=== PATIENT | male | born 1940 | race Caucasian/White ===

== ENCOUNTER 2016-11-24 02:58 | Inpatient (IN) ==
[2016-11-17 11:37] LABS: MANUAL DIFF NEEDED? NO
[2016-11-17 11:39] LABS: BASO% 0.2 % (0.0-0.8); EOS% 1.1 % (0.0-10.0); HEMATOCRIT 32.6 % (42.0-52.0); HEMOGLOBIN 10.3 g/dL (14.0-18.0); IMM GRAN# 0.02 X1000 (0.0-0.04); IMM GRAN% 0.2 % (0.0-0.5); LYMPH# 0.99 X1000 (1.2-3.4); MCH 28.4 PG (27-31); MCHC 31.6 g/dL (33-37); MCV 89.8 FL (81-99); MONO# 0.67 X1000 (0.11-0.59); MONO% 7.5 % (1.7-9.3); MPV 11.3 FL (7.4-10.4); PLT 129 X1000 (130-400); RBC 3.63 XMIL (4.7-6.1)
[2016-11-17 11:52] LABS: INR 1.05; PROTIME 11.1 Seconds (9.2-11.7); PTT 28.3 Seconds (22.0-36.0)
[2016-11-17 11:58] LABS: CALCIUM 9.3 mg/dL (8.8-10.2); POTASSIUM 4.8 mmol/L (3.5-5.1)
[2016-11-24] MEDS ORDERED: MORPHINE IV PRN (07:19)
[2016-11-24 08:55] LABS: URINE MICRO REVIEW NEEDED? NO; URINE SOURCE CLEAN CATCH
[2016-11-24 09:38] LABS: COLOR YELLOW; GLUCOSE URINE NEGATIVE (NEGATIVE); TURBIDITY URINE CLEAR (CLEAR)
[2016-11-24 09:39] LABS: BILIRUBIN URINE SMALL (NEGATIVE); BLOOD URINE NEGATIVE (NEGATIVE); LEUKOCYTES URINE NEGATIVE (NEGATIVE); NITRITE URINE NEGATIVE (NEGATIVE); PROTEIN URINE NEGATIVE (NEGATIVE); UR EPITHELIAL CELLS <10 /HPF (<10); URINE BACTERIA 4+ /HPF; URINE RBC <10 /HPF (<10); URINE WBC <10 /HPF (<10); UROBILINOGEN URINE NORMAL (NORMAL)
[2016-11-24] MEDS ORDERED: REGLAN ONE (09:53)
[2016-11-24] MEDS ORDERED: PEPCID ONE (09:53)
[2016-11-24] MEDS ORDERED: KEFZOL 2 GM/D5W 2 GM/50 ML IVPB ONE (09:54)
[2016-11-24] MEDS ORDERED: LR 1,000 ML ONE ×2 (09:54→13:20)
[2016-11-24] MEDS ORDERED: LYRICA ONE (09:54)
[2016-11-24] MEDS ORDERED: CYKLOKAPRON 1,000 MG/NS 1,000 MG/100 ML IVPB ONE (10:28)
[2016-11-24] MEDS ORDERED: SODIUM CHLORIDE 0.9% ONE (10:28)
[2016-11-24] MEDS ORDERED: TORADOL ONE (10:28)
[2016-11-24] MEDS ORDERED: DURAMORPH ONE (10:28)
[2016-11-24] MEDS ORDERED: MARCAINE 0.25% PF/EPI 1:200,000 ONE (10:28)
[2016-11-24] MEDS ORDERED: EXPAREL 1.3% ONE (10:29)
[2016-11-24] MEDS ORDERED: NEOSPORIN G.U. IRRIGANT ONE (10:29)
[2016-11-24] MEDS ORDERED: CLAVE SECONDARY SET 11953 ONE (10:29)
[2016-11-24] MEDS: COLACE PO SCH ×2 (10:31→21:22)
[2016-11-24] MEDS: CELEBREX PO SCH (10:31)
[2016-11-24 11:45] LABS: URINE MICRO REVIEW NEEDED? NO; URINE SOURCE CATH
[2016-11-24 11:54] LABS: BILIRUBIN URINE NEGATIVE (NEGATIVE); BLOOD URINE NEGATIVE (NEGATIVE); COLOR STRAW; GLUCOSE URINE NEGATIVE (NEGATIVE); LEUKOCYTES URINE NEGATIVE (NEGATIVE); NITRITE URINE NEGATIVE (NEGATIVE); PH URINE 7.5; PROTEIN URINE NEGATIVE (NEGATIVE); SP GRAVITY URINE 1.005; TURBIDITY URINE CLEAR (CLEAR); UR EPITHELIAL CELLS <10 /HPF (<10); URINE BACTERIA NEGATIVE /HPF; URINE RBC <10 /HPF (<10); URINE WBC <10 /HPF (<10); UROBILINOGEN URINE NORMAL (NORMAL)
[2016-11-24] MEDS ORDERED: NS 1,000 ML ONE (13:01)
[2016-11-24] MEDS: MORPHINE ONE ×4 (13:02→13:30)
[2016-11-24] MEDS ORDERED: LR 500 ML ONE (13:11)
[2016-11-24] MEDS ORDERED: DIPRIVAN 1% ONE (13:12)
[2016-11-24] MEDS ORDERED: FENTANYL ONE (13:12)
[2016-11-24] MEDS ORDERED: NEOSTIGMINE ONE (13:19)
[2016-11-24] MEDS ORDERED: DECADRON ONE (13:20)
[2016-11-24] MEDS ORDERED: ZEMURON ONE (13:20)
[2016-11-24] MEDS ORDERED: OFIRMEV 1000 MG/ISOTONIC SOLN 1,000 MG/100 ML BOTTLE ONE (13:20)
[2016-11-24] MEDS ORDERED: XYLOCAINE-MPF 2% ONE (13:20)
[2016-11-24] MEDS ORDERED: QUELICIN (DOSE) ONE (13:20)
[2016-11-24] MEDS ORDERED: ROBINUL ONE (13:20)
[2016-11-24] MEDS ORDERED: ZOFRAN ONE (13:20)
[2016-11-24] MEDS ORDERED: EPHEDRINE ONE (13:20)
--- NOTE | 2016-11-24 14:40 | Diag Imaging Result Document ---
PROCEDURE NAME: XRAY HIP UNILATERAL LT - 11/24/2016 LEFT HIP 2 VIEWS: COMPARISON: 12/29/2015. FINDINGS: There is significant patient motion artifact, particularly on the frontal view. There is a new left total hip prosthesis. Alignment appears to be grossly anatomic. IMPRESSION: No obvious complication.
[2016-11-24] MEDS: ASPIRIN EC PO SCH (15:57)
--- NOTE | 2016-11-24 16:23 | OPERATIVE NOTE ---
PROCEDURE DATE: 11/24/2016 DATE OF SURGERY: 11/24/2016. PREOPERATIVE DIAGNOSIS: Degenerative joint disease, left hip. POSTOPERATIVE DIAGNOSIS: Degenerative joint disease, left hip. PROCEDURE: Left total hip replacement. SURGEON: Evelin Tong MD. COVER CREASER: Albert Tijerina. ANESTHESIA: General. COMPLICATIONS: None. PROCEDURE IN DETAIL: This 76-year-old male with DJD about the left hip presents for surgical hip replacement. Risks, benefits, and no guarantees were discussed, and the patient is willing to proceed. He was taken to the operating room and satisfactory anesthesia obtained. He was placed in lateral position with the left hip upward and all bony prominences padded. The left hip was prepped and draped in usual sterile fashion. A time-out was taken to confirm operative site, procedure, and patient. The posterior approach to the left hip was undertaken through a curved incision centered over the greater trochanter. Dissection was carried down to the deep fascia, which was split in line with the incision, and the Charnley retractor inserted. The piriformis tendon was reflected off the back of the hip capsule, and a capsulotomy incision made and reflected to protect the sciatic nerve. Hip was gently dislocated and femoral neck osteotomy made roughly 8 mm above the lesser trochanter. The Cobra retractors were placed over the anterior and posterior aspect of the acetabulum and sequential reaming of the acetabulum, undertaken up to a size 57 reamer. A DePuy [place] Duofix MANCERA coated cup size 58 outer diameter was impacted in the acetabulum in roughly 45 degrees of abduction and 20-25 degrees of anteversion. This was noted to have secure press-fit fixation. An additional 25 length screw was placed in the 12 o'clock position of the cup for additional security, followed by a polyethylene liner to accommodate a 40 mm head. This was then impacted and checked for security in both liner shell interface and shell and bone interface which were secure. The femur was elevated into the wound and sequential broaching with a [place] Corail broach undertaken up to a size 14 stem. This had good axial and rotational stability. Standard neck geometry was utilized with a 1.5 head/neck length with good range of motion and stability. The trial stem was removed and a Corail 14 standard neck stem was impacted in the proximal femur with secure fixation. A ceramic head was then attached to the ball measuring ceramic 40 mm with a 1.5 neck. Adapter was then impacted onto the proximal femoral implant and the hip reduced. Final range of motion was assessed with no anterior instability in extension. The hip was flexed to 90 degrees with neutral adduction and internal rotation to 80 degrees without any dislocation of the hip. The wound was then copiously irrigated with irrigant. The posterior capsule and piriformis were repaired with interrupted 0 Vicryl. The joint capsule was injected with Exparel for pain management and Hemovac drain placed. The deep fascia was closed with #1 Vicryl, the subcutaneous with 2-0 Vicryl, and the skin with skin jennifer. Sterile dressings completed the closure and the patient was recovered from anesthesia and transferred to the recovery room in stable condition. No intraoperative complications were noted. Instrument count and sponge count were correct at the time of closure. cc: Alberto Tong MD
[2016-11-24] MEDS: GLUCOPHAGE PO SCH ×2 (16:34→16:41)
[2016-11-24] MEDS: GRALISE PO SCH ×2 (16:34→16:42)
[2016-11-24] MEDS: NS 1,000 ML IV SCH (16:41)
[2016-11-24] MEDS: PROTONIX PO SCH (16:43)
[2016-11-24] MEDS: MAG-OX PO SCH (16:43)
[2016-11-24] MEDS: HYZAAR 100/12.5 MG TAB PO SCH (16:43)
[2016-11-24] MEDS ORDERED: CYKLOKAPRON 1,000 MG in NS 100 ML IV ONE (17:30)
[2016-11-24] MEDS: NORCO-10 PO PRN (17:32)
[2016-11-24] MEDS: KEFZOL 1 GM/D5W 1 GM/50 ML IVPB IV SCH (18:39)
[2016-11-24] MEDS: PERIDEX MT SCH (21:22)
[2016-11-24] MEDS: CRESTOR PO SCH (21:22)
[2016-11-24] MEDS: ELAVIL PO SCH (21:22)
[2016-11-25] MEDS: KEFZOL 1 GM/D5W 1 GM/50 ML IVPB IV SCH (02:17)
[2016-11-25] MEDS: NS 1,000 ML IV SCH (02:17)
[2016-11-25] MEDS: XARELTO PO SCH (05:09)
[2016-11-25 06:42] LABS: HEMATOCRIT 24.3 % (42.0-52.0); HEMOGLOBIN 7.5 g/dL (14.0-18.0)
[2016-11-25 06:53] LABS: CALCIUM 8.5 mg/dL (8.8-10.2); POTASSIUM 5.4 mmol/L (3.5-5.1)
--- NOTE | 2016-11-25 07:15 | HISTORY AND PHYSICAL ---
CHIEF COMPLAINT: Left hip pain. HISTORY OF PRESENT ILLNESS: This is a 76-year-old male, with a history of bilateral degenerative hips. He had a right hip done about 15 years ago and now he is here for the left. The surgical procedure, as well as risks and benefits were explained to patient at this time who agreed to proceed. PAST MEDICAL HISTORY: Serious illnesses: Diabetes, hypertension, heart disease. PAST SURGERIES: Right toe and a right total hip arthroplasty. MEDICATIONS: Regular medications: Elavil 25 mg 1 at night. Aspirin 325 mg 1 a day, Lodine 400 twice a day. Gabapentin 3 times a day, Imdur 60 mg 1 at night. Losartan 100/12.5 one a day, Mag oxide 400 once a day, metformin 850 mg 3 times a day. Pantoprazole 40 once a day, Crestor 20 once a day, tramadol p.r.n. pain. REVIEW OF SYSTEMS: HEENT: No history of migraines, dizziness, loss of conscious, CVA. Respiratory: He is a nonsmoker. No history of asthma, emphysema, shortness of breath. Heart: Patient is a poor historian and states he has had some type of heart problems in the past, but he is not exactly sure what. He states he has no recent history of chest pain or recent heart, chest pain. Abdomen: Has history of reflux, no history of bowel or bladder abnormalities. PHYSICAL EXAMINATION: GENERAL: This is a 76-year-old. Alert and oriented. Primary care physician is Dr. Lockhart. HEENT: Pupils equal, round, reactive. NECK: Good range of motion without adenopathy. RESPIRATORY: Respirations equal, unlabored, clear bilaterally. HEART: Regular rate and rhythm. ABDOMEN: Soft, nontender. Bowel sounds present. EXTREMITIES: Complains of pain in left hip. States has considerable difficulty walking. The pain sometimes radiates down the leg. IMPRESSIONS: Degenerative disease, left hip. PLAN: Admit at this time for left total hip arthroplasty. Dictated by Osmin Pascual RN for Alberto Tong MD This chart was documented by the indicated scribe, Osmin Pascual RN and accurately reflects the services I performed and decisions made by me, Alberto Tong MD, as attested by the provider's signature. cc: Alberto Tong MD
[2016-11-25] MEDS: PERIDEX MT SCH ×2 (08:48→21:42)
[2016-11-25] MEDS: COLACE PO SCH ×2 (08:48→21:42)
[2016-11-25] MEDS: GRALISE PO SCH ×3 (08:48→17:12)
[2016-11-25] MEDS: GLUCOPHAGE PO SCH ×3 (08:48→17:13)
[2016-11-25] MEDS: CELEBREX PO SCH (08:48)
[2016-11-25] MEDS: PROTONIX PO SCH (08:48)
[2016-11-25] MEDS: MAG-OX PO SCH (08:48)
[2016-11-25] MEDS: ASPIRIN EC PO SCH (08:49)
[2016-11-25] MEDS: HYZAAR 100/12.5 MG TAB PO SCH (08:49)
[2016-11-25] MEDS: NORCO-10 PO PRN ×3 (08:56→15:22)
--- NOTE | 2016-11-25 14:38 | Diag Imaging Result Document ---
PROCEDURE NAME: XRAY HIP UNILATERAL LT - 11/25/2016 PORTABLE LEFT HIP SINGLE VIEW: FINDINGS: There has been prior orthopedic replacement of the left hip. The femoral head component is well positioned in the acetabular component. No acute fracture identified. IMPRESSION: Negative exam.
[2016-11-25] MEDS: CRESTOR PO SCH (21:42)
[2016-11-25] MEDS: ELAVIL PO SCH (21:42)
[2016-11-26] MEDS: NORCO-10 PO PRN ×3 (02:32→13:50)
[2016-11-26] MEDS: XARELTO PO SCH (05:28)
[2016-11-26 06:25] LABS: HEMATOCRIT 25.8 % (42.0-52.0); HEMOGLOBIN 7.9 g/dL (14.0-18.0)
[2016-11-26] MEDS: CELEBREX PO SCH (09:22)
[2016-11-26] MEDS: ASPIRIN EC PO SCH (09:22)
[2016-11-26] MEDS: MAG-OX PO SCH (09:22)
[2016-11-26] MEDS: GLUCOPHAGE PO SCH ×3 (09:22→23:00)
[2016-11-26] MEDS: PROTONIX PO SCH (09:22)
[2016-11-26] MEDS: COLACE PO SCH ×2 (09:22→23:00)
[2016-11-26] MEDS: HYZAAR 100/12.5 MG TAB PO SCH (09:22)
[2016-11-26] MEDS: PERIDEX MT SCH ×2 (09:23→23:00)
[2016-11-26] MEDS: GRALISE PO SCH ×3 (10:58→23:00)
[2016-11-26] MEDS: ELAVIL PO SCH (23:01)
[2016-11-26] MEDS: CRESTOR PO SCH (23:01)
[2016-11-27] MEDS: NORCO-10 PO PRN (05:52)
[2016-11-27] MEDS: XARELTO PO SCH (05:52)
[2016-11-27 06:18] LABS: HEMOGLOBIN 7.6 g/dL (14.0-18.0)
[2016-11-27] MEDS: CRESTOR PO SCH (06:54)
--- NOTE | 2016-11-27 08:43 | DISCHARGE SUMMARY ---
ADMISSION DATE: 11/24/2016 DISCHARGE DATE: ADMITTING DIAGNOSIS: Degenerative joint disease of the left hip. ADDITIONAL DIAGNOSES: 1. Diabetes. 2. Hypertension. 3. Heart disease. DISCHARGE DIAGNOSES: 1. Degenerative joint disease of the left hip. 2. Diabetes. 3. Hypertension. 4. Heart disease. ADMITTING HISTORY AND HOSPITAL COURSE: Mr. Russo is a 76-year-old white male with a history of bilateral degenerative hips. He had one of them replaced several years ago and now he came in to have his left hip replaced on 11/24/2016. After his surgery he remained afebrile. His vital signs remained stable. There are no signs of infection or DVT. Currently his hematocrit is 25 and stable. Vital signs are stable. Currently he is ambulating about 100 feet with a front wheeled walker. We plan to discharge him to the inpatient rehab facility today. DISCHARGE MEDICATIONS: Crestor 20 mg p.o. at bedtime, Protonix 40 mg p.o. daily, gabapentin ER 600 mg p.o. t.i.d., Imdur 60 mg p.o. at bedtime, losartan/hydrochlorothiazide 100 mg/12.5 mg tablet one p.o. daily, metformin 850 mg p.o. t.i.d., Mag-Ox 400 mg p.o. daily, tramadol 1-2 p.o. p.r.n., amitriptyline 25 mg p.o. at bedtime, Reasnor 10 mg 1-2 p.o. every 4-6 hours p.r.n. for pain, and Xarelto 10 mg p.o. daily for 21 days. DISCHARGE INSTRUCTIONS: Mr. Russo is discharged from the hospital today where he will begin an inpatient rehab program with physical therapy. I discussed with him that he would be going home on pain medication and the anticoagulate Xarelto. He had no questions. I discussed with him that if he has any worsening signs or symptoms or any discharge from the incision site or any fever to call us and let us know immediately. Also, he will need to follow up with us after he discharges from the rehab facility. He needs to have a follow-up appointment as well as have his jennifer removed in about 10 days. Rehab will remove those jennifer in about 10 days if he is there for 10 days. Dictated by ARNAUD Pena for Alberto Tong MD cc: ARNAUD Pena MD
[2016-11-27] MEDS: PERIDEX MT SCH (10:29)
[2016-11-27] MEDS: COLACE PO SCH (10:29)
[2016-11-27] MEDS: PROTONIX PO SCH (10:30)
[2016-11-27] MEDS: GLUCOPHAGE PO SCH ×2 (10:30→12:22)
[2016-11-27] MEDS: HYZAAR 100/12.5 MG TAB PO SCH (10:30)
[2016-11-27] MEDS: MAG-OX PO SCH (10:30)
[2016-11-27] MEDS: GRALISE PO SCH (10:30)
[2016-11-27] MEDS: ASPIRIN EC PO SCH (10:30)
[2016-11-27] MEDS: CELEBREX PO SCH (10:31)
[2016-11-27 11:36] VITALS: BP 148/61
--- NOTE | 2016-11-27 13:19 | Diag Imaging Result Document ---
PROCEDURE NAME: CHEST-PORTABLE - 11/27/2016 SEMIUPRIGHT PORTABLE CHEST: COMPARISON: 10/01/2015. FINDINGS: The patient is rotated to the right. The lungs are well expanded. The heart is not enlarged. The vessels are not distended. No consolidation. No pleural effusions identified. Minimal markings in the right base believed to be atelectasis. There is a granuloma in the mid left lung. IMPRESSION: The patient is rotated to the right and there is atelectasis in the right base.
== END 2016-11-27 13:53 ==
LOC: SURHOLD 02:58 → 4N 10:49
PROVIDERS: ADMIT Orthopaedic Surgery Adult Reconstructive Orthopaedic Surgery; ATTEND Orthopaedic Surgery Adult Reconstructive Orthopaedic Surgery

== ENCOUNTER 2016-12-10 01:46 | Inpatient (IN) ==
[2016-12-10] MEDS ORDERED: ASPIRIN PO STA (01:51)
[2016-12-10 02:55] LABS: MANUAL DIFF NEEDED? NO
[2016-12-10 03:06] LABS: BASO% 0.1 % (0.0-0.8); EOS% 1.3 % (0.0-10.0); HEMATOCRIT 24.1 % (42.0-52.0); HEMOGLOBIN 7.5 g/dL (14.0-18.0); LYMPH# 0.55 X1000 (1.2-3.4); LYMPH% 7.2 % (20.5-51.1); MCH 28.3 PG (27-31); MCHC 31.1 g/dL (33-37); MCV 90.9 FL (81-99); MONO# 0.83 X1000 (0.11-0.59); MONO% 10.8 % (1.7-9.3); MPV 11.6 FL (7.4-10.4); NEUT% 80.6 % (42.2-75.2); PLT 157 X1000 (130-400); RBC 2.65 XMIL (4.7-6.1)
[2016-12-10 03:10] LABS: INR 1.04; PTT 27.2 Seconds (22.0-36.0)
[2016-12-10 03:32] LABS: ALLEN TEST YES; BE -3.5 mmoll (-3.0-3.0); BLOOD TYPE ARTERIAL; DRAW SITE R RADIAL; O2(CT) 9.4 mL/dL (15.0-23.0); PCO2(98.6) 49 mmHg (35-45); PO2(98.6) 81 mmHg (60-100); SAMPLE BLOOD; SAO2 95.5 % (95.0-100.0); THB 6.9 g/dL (11.5-17.4); pH(98.6) 7.28 (7.35-7.45)
[2016-12-10 03:33] LABS: MODALITY CANNULA
[2016-12-10 03:33] LABS: ALBUMIN 3.4 g/dL (3.5-5.0); CALCIUM 8.6 mg/dL (8.8-10.2); MAGNESIUM 1.9 mg/dL (1.5-2.7); POTASSIUM 5.2 mmol/L (3.5-5.1); TOTAL BILIRUBIN 0.7 mg/dL (0.20-1.00); TOTAL PROTEIN 5.3 g/dL (6.3-8.3)
[2016-12-10] MEDS ORDERED: PROTONIX IV ONE (03:49)
[2016-12-10] MEDS ORDERED: NS 1,000 ML IV ONE (03:49)
[2016-12-10] MEDS ORDERED: SODIUM CHLORIDE 0.9% INJ ONE (03:49)
--- NOTE | 2016-12-10 03:52 | PROVIDER DOCUMENTATION ---
This chart was entered by Nathalie Morin Scribe, acting as scribe for Nabeel Cade MD. HPI-Musculoskeletal Pain/Inj - GENERAL Stated Complaint: Fall Time Seen by Provider: 12/10/16 01:50 Source: patient - HX OF PRESENT ILLNESS-MUSKULOSKELTAL Nature of Presenting Problem: 76 Y/O M presents to ED with fall. Pt stats that he fell at home, hurt hip, had a previous hip fx on left side. Blood noted coming from sutures. Pt just left the hospital to rule out blood clots. Quality of Pain: reports: aching Severity in ED: moderate Onset/Duration: this morning Timing: still present Locality of Occurance: Home Similar Symptoms Previously?: Yes Recently seen or treated by another doctor?: Yes - FALL INJURY Location of Pain/Injury: reports: pelvis Pain Radiation: reports: no radiation Reason for Fall: reports: tripped Symptoms prior to fall:: reports: none Loss of Consciousness: no loss of consciousness Injury Associated Symptoms: reports: muscle aches - HIP/PELVIS PAIN/INJURY Hip Pain Location: reports: hip (L) Pain Radiation: reports: no radiation Context / Method of Injury: reports: fall Associated Symptoms: reports: denies symptoms Review of Systems - Adult - REVIEW OF SYSTEMS - ADULT Constitutional: denies: chills, fever Eyes: reports: no symptoms reported Ears, Nose, Mouth & Throat: reports: no symptoms reported Cardiovascular: reports: no symptoms reported Respiratory: reports: no symptoms reported Gastrointestinal: reports: no symptoms reported Genitourinary: reports: no symptoms reported Musculoskeletal: reports: joint pain. denies: back pain, muscle weakness Integumentary: reports: no symptoms reported Neurological: reports: no symptoms reported Psychiatric: reports: no symptoms reported Endocrine: reports: no symptoms reported Hematologic/Lymphatic: reports: no symptoms reported Allergic/Immunologic: reports: no symptoms reported All Other Systems: Reviewed and Negative Past History - Adult - PAST MEDICAL HISTORY-ADULT Review of Records: reports: Old Records Reviewed, Nursing Assessment Review, Medications Reviewed, Social history reviewed & non-contributory. Major Childhood Illnesses: reports: denies history Cardiovascular: reports: CAD, HTN Respiratory: reports: sleep apnea Gastrointestinal: reports: denies history Obstetrical/Gynecological: reports: denies history Genitourinary: reports: denies history Musculoskeletal: reports: denies history Neurological: reports: denies history Endocrine/Immune: reports: Diabetes Other Conditions: reports: denies history - PRIOR SURGERIES/PROCEDURES Surgical/Procedure History: reports: orthopedic (extremity) (right PRABHU), other ( left orchiectomy) - PRIOR HOSPITALIZATIONS Prior Hospitalizations: reports: for other non-related - IMMUNIZATION STATUS Childhood Immunizations: See Nurse Assessment Flu Vaccine: See Nurse Assessment - FAMILY HISTORY Family History: reviewed, not pertinent - SOCIAL HISTORY Smoking: quit greater than 1 year Alcohol Use Frequency: never Physical Exam-Injury Related - Physical Exam-Injury Related General Appearance: appears well, alert, no apparent distress Eyes: PERRL/EOMI, pink conjunctivae Head, Ears, Nose, Mouth & Throat: normocephalic/atraumatic, moist mucous membranes, normal ENT inspection, TMs normal, pharynx normal Neck: non-tender, full range of motion, supple, normal inspection Respiratory: chest non-tender, lungs clear, normal breath sounds Cardiovascular: normal peripheral pulses, regular rate, rhythm Abdominal Exam: normal bowel sounds, non tender, soft Lymphatic: no adenopathy Back Exam: normal inspection Extremity: normal range of motion, other (left hip sutures noted) Integumentary: normal color, warm/dry 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 Psych/Mental Status: normal mood/affect, normal thought content, normal thought process, oriented x 3 - Glascow Coma Score Best Eye Response ([place]): (4) open spontaneously Best Verbal Response ([place]): (5) oriented Best Motor Response ([place]): (6) obeys commands Terrell Total: 15 Progress - PLAN OF CARE/RESULTS Progress/Plan/Lab Results: Vital Signs - 8 hr 12/10/16 02:00 12/10/16 02:46 Temperature 97.4 F L Pulse Rate 80 79 Respiratory Rate 20 19 Blood Pressure 104/43 96/52 O2 Sat by Pulse Oximetry 100 98 Laboratory Results - last 24 hr 12/10/16 12/10/16 12/10/16 02:40 02:40 02:40 WBC 7.69 RBC 2.65 L Hgb 7.5 L Hct 24.1 L MCV 90.9 MCH 28.3 MCHC 31.1 L RDW Std Deviation 14.4 Plt Count 157 MPV 11.6 H Immature Gran % (Auto) 0.0 Neut % (Auto) 80.6 H Lymph % (Auto) 7.2 L Ogle % (Auto) 10.8 H Eos % (Auto) 1.3 Baso % (Auto) 0.1 Immature Gran # (Auto) 0.00 Neut # (Auto) 6.20 Lymph # (Auto) 0.55 L Ogle # (Auto) 0.83 H Eos # (Auto) 0.10 Baso # (Auto) 0.01 PT INR PTT (Actin FS) D-Dimer Specimen Type Sample Site pH pCO2 pO2 HCO3 Base Excess Oxyhemoglobin ABG O2 Sat (Calculated) ABG O2 Saturation ABG Carboxyhemoglobin ABG Methemoglobin Dayron Test A-a O2 Difference Total Hemoglobin Lactate Liter Flow Blood Gas Modality FiO2 % Sodium 142 Potassium 5.2 H Chloride 104 Carbon Dioxide 21 L Anion Gap 17 BUN 76 H Creatinine 2.5 H Estimated GFR/1.73 m2 25 BUN/Creatinine Ratio 30 Glucose 167 H Calculated Osmolality 310 Calcium 8.6 L Magnesium 1.9 Total Bilirubin 0.70 AST 10 ALT 8 L Alkaline Phosphatase 96 Creatine Kinase 31 Troponin T Eld-W-Yeatpoiqnvz Pept 286 Total Protein 5.3 L Albumin 3.4 L Globulin 1.9 Albumin/Globulin Ratio 1.8 12/10/16 12/10/16 12/10/16 02:40 02:40 02:40 WBC RBC Hgb Hct MCV MCH MCHC RDW Std Deviation Plt Count MPV Immature Gran % (Auto) Neut % (Auto) Lymph % (Auto) Ogle % (Auto) Eos % (Auto) Baso % (Auto) Immature Gran # (Auto) Neut # (Auto) Lymph # (Auto) Ogle # (Auto) Eos # (Auto) Baso # (Auto) PT 11.0 INR 1.04 PTT (Actin FS) 27.2 D-Dimer 2.86 H Specimen Type Sample Site pH pCO2 pO2 HCO3 Base Excess Oxyhemoglobin ABG O2 Sat (Calculated) ABG O2 Saturation ABG Carboxyhemoglobin ABG Methemoglobin Dayron Test A-a O2 Difference Total Hemoglobin Lactate Liter Flow Blood Gas Modality FiO2 % Sodium Potassium Chloride Carbon Dioxide Anion Gap BUN Creatinine Estimated GFR/1.73 m2 BUN/Creatinine Ratio Glucose Calculated Osmolality Calcium Magnesium Total Bilirubin AST ALT Alkaline Phosphatase Creatine Kinase Troponin T 0.045 Vbd-A-Vbvcvdrlekv Pept Total Protein Albumin Globulin Albumin/Globulin Ratio 12/10/16 03:23 WBC RBC Hgb Hct MCV MCH MCHC RDW Std Deviation Plt Count MPV Immature Gran % (Auto) Neut % (Auto) Lymph % (Auto) Ogle % (Auto) Eos % (Auto) Baso % (Auto) Immature Gran # (Auto) Neut # (Auto) Lymph # (Auto) Ogle # (Auto) Eos # (Auto) Baso # (Auto) PT INR PTT (Actin FS) D-Dimer Specimen Type ARTERIAL Sample Site R RADIAL pH 7.28 L pCO2 49 H pO2 81 HCO3 22.2 Base Excess -3.5 L Oxyhemoglobin 95.5 ABG O2 Sat (Calculated) 9.4 L ABG O2 Saturation 95.5 ABG Carboxyhemoglobin 0.00 L ABG Methemoglobin 0.0 Dayron Test YES A-a O2 Difference 57.0 Total Hemoglobin 6.9 L Lactate 0.80 Liter Flow 2.0 Blood Gas Modality CANNULA FiO2 % 28.0 Sodium Potassium Chloride Carbon Dioxide Anion Gap BUN Creatinine Estimated GFR/1.73 m2 BUN/Creatinine Ratio Glucose Calculated Osmolality Calcium Magnesium Total Bilirubin AST ALT Alkaline Phosphatase Creatine Kinase Troponin T Odw-X-Ijekszlepfs Pept Total Protein Albumin Globulin Albumin/Globulin Ratio Orders Category Date Time Status Admit - [facility] Routine AdmDCTranf 12/10/16 03:50 Ordered Cardiac Monitoring DIRECTED Care 12/10/16 01:51 Completed Cardiac Monitoring DIRECTED Care 12/10/16 02:56 Active Oxygen Therapy- ED Nursing DIRECTED Care 12/10/16 02:56 Active Saline Loc NOW Care 12/10/16 01:51 Completed Saline Loc NOW Care 12/10/16 02:56 Active CHEST-1 VIEW [RAD] Stat Exams 12/10/16 01:52 Taken HIP 1 VIEW LEFT [RAD] Stat Exams 12/10/16 01:56 Taken ABG [RESP] Routine Lab 12/10/16 03:23 Completed CBC WITH ELECTRONIC DIFF [HEME] Stat Lab 12/10/16 02:40 Completed CK PROFILE [SP CHEM] Stat Lab 12/10/16 02:40 Completed COMPREHENSIVE METABOLIC PANEL [CHEM] Stat Lab 12/10/16 02:40 Completed D-DIMER [CHEM] Stat Lab 12/10/16 02:40 Completed MAGNESIUM [CHEM] Stat Lab 12/10/16 02:40 Completed PRO B-NATRIURETIC PEPTIDE Stat Lab 12/10/16 02:40 Completed PROTIME WITH INR [COAG] Stat Lab 12/10/16 02:40 Completed PTT [COAG] Stat Lab 12/10/16 02:40 Completed TROPONIN T Stat Lab 12/10/16 02:40 Completed TYPE & SCREEN [BBK] Stat Lab 12/10/16 03:49 Uncollected 0.9% Sodium Chloride Inj [Ns] 1,000 ml Med 12/10/16 03:49 Active IV 999 mls/hr Aspirin Med 12/10/16 01:51 Discontinued 325 mg PO STAT STA Pantoprazole [Protonix] Med 12/10/16 03:49 Discontinued 40 mg IV NOW ONE Sodium Chloride 0.9% Med 12/10/16 03:49 Discontinued 10 ml INJ NOW ONE EKG [EKG] Stat Ther 12/10/16 02:56 Ordered Result Diagrams: 12/10/16 02:40 12/10/16 02:40 Departure - Departure Time of Disposition Decision: 03:51 DIAGNOSIS: Anemia Disposition: ADMITTED INPATIENT 09 Certified Medical Emergency: Emergent Condition: Stable - Critical Care Note This patient required my direct & personal management of CC.: Yes Attestation - Physician/ CLEMENTINA Attestation Patient care was provided by Advanced Practice Provider:: Yes Advanced Practice Provider documentation review:: The Mid-level provider documentation, treatment plan and medical decision making was reviewed by the physician who agrees with all treatment and medical decision making by the MLP. The physician spent face to face time with patient:: Yes Advanced Practice Provider documentation review:: The physician spent face to face time with this patient and agrees with all MLP documentation, treatment, and medical decision making by the MLP. See provider notes for further information. This chart was documented by the indicated scribe, (Nathalie Morin Scribe) and accurately reflects the services I performed and decisions made by me, Nabeel Cade MD, as attested by the provider's signature.
--- NOTE | 2016-12-10 06:15 | EKG Report ---
Test Performed on : 12/10/2016 05:39:33 AM Test Reason : FALL Blood Pressure : / mmHG Vent. Rate : 070 BPM Atrial Rate : 070 BPM P-R Int : 222 ms QRS Dur : 096 ms QT Int : 392 ms P-R-T Axes : 069 050 061 degrees QTc Int : 423 ms Sinus rhythm. with 1st degree AV block. Otherwise normal ECG When compared with ECG of 29-NOV-2016 20:34, No significant change was found Unconfirmed Result
[2016-12-10] MEDS ORDERED: NS 1,000 ML IV SCH (08:01)
--- NOTE | 2016-12-10 08:19 | Diag Imaging Result Document ---
PROCEDURE NAME: HIP 1 VIEW LEFT - 12/10/2016 SINGLE FRONTAL RADIOGRAPH OF THE LEFT HIP: COMPARISON: 11/25/2016. FINDINGS: The left hip arthroplasty hardware is in stable position. There is no evidence of dislocation. The bones are osteopenic. No fracture is identified. Surrounding soft tissues are grossly unremarkable. IMPRESSION: No evidence of acute osseous abnormality.
--- NOTE | 2016-12-10 08:19 | Diag Imaging Result Document ---
PROCEDURE NAME: CHEST-1 VIEW - 12/10/2016 SINGLE FRONTAL RADIOGRAPH OF THE CHEST: COMPARISON: 11/27/2016. FINDINGS: Inspiration is suboptimal. The patient is rotated toward the right. There are a couple of calcified granulomata in the left upper lobe that are stable. There is suggestion of minimal atelectasis at the right lung base that is less prominent than the previous study. No new consolidations are identified. Cardiac silhouette is stable. IMPRESSION: Poor inspiration and suggestion of minimal subsegmental atelectasis at the right lung base.
--- NOTE | 2016-12-10 08:30 | Diag Imaging Result Document ---
PROCEDURE NAME: HEAD/C-SPINE W/O CONTRAST - 12/10/2016 CT HEAD WITHOUT CONTRAST: TECHNIQUE: A dose reduction protocol was used. No comparison exam. FINDINGS: There are some generalized atrophic changes. There are some ischemic changes at left posterior parietal white matter which may be chronic. There is no specific acute infarct identified, although acute infarcts may not be immediately visible. There are small basal ganglia and anterior pontine calcifications which are likely chronic. There is no evidence of intracranial hemorrhage, mass effect, or midline shift. There is no skull fracture. IMPRESSION: No evidence of intracranial injury. CT CERVICAL SPINE WITHOUT CONTRAST: TECHNIQUE: Axial, sagittal and coronal images are obtained. A dose-reduction protocol was used. No comparison exam. FINDINGS: There is substantial multilevel degenerative disease. There is associated mild to moderate degenerative spinal stenosis at several levels. There is no fracture identified. There is no subluxation seen. There is no precervical soft- tissue swelling identified. There are extensive atherosclerotic calcifications noted at the bilateral carotid regions. IMPRESSION: 1. Substantial multilevel degenerative disease. 2. No evidence of fracture or subluxation. 3. Extensive carotid atherosclerotic calcifications noted.
--- NOTE | 2016-12-10 09:08 | HISTORY AND PHYSICAL ---
TIME: 0500. PRIMARY CARE PROVIDER: Celestino Lockhart MD. ORTHOPEDIC SURGEON: Alberto Tong MD. HISTORY OF PRESENT ILLNESS: Mr. Russo is a 76-year-old, male, who recently underwent a left total hip arthroplasty with Dr. 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 The patient was discharged on 11/27/2016. He went to rehab, though the patient's reports that he only stayed there for a short period of time and requested to come home. His states that the patient did not want to be at rehab and was discharged home with home health care. She reports that since his surgery and returning home from rehab that he has had increased confusion. She also reports that he has had periods of agitation. At this time, the patient is only alert and oriented to person and place though not time. He was also not able to state the President. She also reports that since returning home from rehab, he has also been increasingly more weak, fatigued and has complained of shortness of breath, lower abdominal pain, painful bowel movements and constipation. Prior to the patient's arrival to the ER tonight at approximately 12:30, she states that he fell. His also reports that after his fall, he did have a skin tear to his right elbow as well as his left hip wound was oozing some blood. The patient reports that he became dizzy and fell. He states that he is unsure if he hit his head or not. He also reported some left shoulder pain as well. He denies any headache , chest pain, nausea, vomiting, diarrhea, dysuria, urinary frequency. He also denied any fever, body aches or chills. He was seen by Dr. Tong in his office yesterday and did report that he has had some bilateral lower extremity swelling and pain. For further evaluation of this, Dr. Tong did order the patient to have bilateral lower extremity venous Dopplers. I did call and confirm with the chemical research technician who performed his bilateral lower extremity venous Dopplers and she reported that his studies were negative for deep venous thrombosis. The patient denies having any bloody or black tarry stools. Though his did report that she thought on Wednesday when he had a bowel movement, it did appear dark in color. Upon arrival to the ER, the patient was hypoxic with a room air oxygen saturation of 84%. With placement of nasal cannula at 2 L, this has increased to 100%. Initial vital signs were temperature 97.4, heart rate 80, respirations 20, blood pressure 104/43 with oxygen saturation of 84%. Laboratory results reveal that the patient was anemic with a hemoglobin of 7.5 and hematocrit 24.1. The patient also did report some neck pain as well. At this time, we have ordered a CT head and neck for a CT head and C-spine without contrast for further evaluation. Patient also did report some left shoulder pain. Though upon palpation and manipulation of his left arm and left shoulder, the patient did not report any pain. There is no obvious deformity noted to the left shoulder. At this time, we will admit the patient for further treatment and evaluation of his anemia, fall, hypoxia and altered mental status. REVIEW OF SYSTEMS: A 12-point review of systems was conducted with the patient. All were negative except for pertinent positives mentioned above in HPI. PAST MEDICAL HISTORY: 1. Diabetes mellitus type 2. 2. Hypertension. 3. Heart disease. 4. Hyperlipidemia. 5. Chronic kidney disease. PAST SURGICAL HISTORY: 1. Right great toe amputation. 2. Right total hip arthroplasty. 3. Tonsillectomy. 4. Left orchiectomy. 5. Recent total left hip arthroplasty with Dr. Tong on 11/24/2016. SOCIAL HISTORY: Patient is a former smoker. Smoked from a young age to approximately 20 years ago when he quit. His states that he smoked about 1-1/2 packs per day. No known alcohol or illicit drug use. He currently lives at home with his . He does have home health that comes out and has been assisting with his care since the surgery and is currently using a walker for ambulation. FAMILY HISTORY: Positive for his father having history of renal cancer. His mother at a young age due to a motor vehicle crash. He has a brother who has a history of Alzheimer disease as well as Crohn disease. DIAGNOSTIC DATA/LABORATORY RESULTS: A white blood cell count 7.6, hemoglobin 7.5, hematocrit 24.1, platelet count 157. PT 11 and INR 1.04. PTT 27.2. D-dimer 2.86. Sodium 142, potassium 5.2, chloride 104, bicarb 21, BUN 76, creatinine 2.5 with an estimated GFR of 25 , glucose 167, calcium 8.6, magnesium 1.9. Liver function tests are within normal limits. CK 31, troponin 0.045. ProBNP 286. Arterial blood gases were obtained on a nasal cannula at 2 L: PH was 7.28, pCO2 of 49, pO2 of 81, HCO3 was 22.2 with a base excess of -3.5, O2 saturation was 95.5. EKG showed sinus rhythm with a first-degree AV block at a rate of 70, QTc was 423. A chest x-ray showed no acute disease. We are awaiting the official radiology over read. Left hip 1 view shows no acute abnormality or injury, though we are awaiting this Radiology over read as well. Pending diagnostic studies at this time are CT head/C-spine without contrast. A VQ lung scan. Anemia profile. Hemoglobin A1c. Urinalysis, as well as a repeat troponin. PHYSICAL EXAMINATION: VITAL SIGNS: Temperature 97.4, heart rate 73, respirations 20, blood pressure 100/49. Oxygen saturation is 97% nasal cannula at 2 L. GENERAL: Mr. Russo is a pleasant, 76-year-old, male, who is resting in the ER stretcher. He was drowsy upon examination though did respond to loud, verbal stimulation and light tactile stimulation. Once awoken, he was able to answer some questions related to his history of present illness and past medical history, though his did have to help with some of these questions. HEENT: Head is atraumatic, normocephalic. Pupils are equal, round, reactive to light. Were 3 mm bilaterally and brisk. Subconjunctiva were pale. Oral mucosa is slightly dry. Oropharynx is clear. NECK: Supple. Trachea midline. Patient has carotid bruits noted on auscultation bilaterally. No JVD noted. CARDIOVASCULAR: Patient has S1-S2 present. No murmurs, gallops, rubs appreciated with a regular rate and rhythm. Heart sounds were somewhat difficult to auscultate, though this could be secondary to body habitus. PULMONARY: Patient has symmetrical chest expansion bilaterally. Lung sounds were clear to auscultation bilateral upper pinto, though were slightly diminished in bilateral lower pinto. ABDOMEN: Soft, nontender, nondistended, though the patient does have a protuberant abdomen noted. Bowel sounds were present and all 4 quadrants were slightly hyperactive. EXTREMITIES: No cyanosis nor clubbing noted. Patient did have slight edema noted to bilateral lower extremities, though this was nonpitting at this time. He did have some slight erythema noted to the right ankle area, and patient does have some healing abrasions noted to bilateral anterior lower extremities. Patient's states that when using his walker recently, that he has bumped his legs a few times, and this has left an abrasion. Pulse, motor and sensory are intact in all extremities. Pedal pulses were 3+ bilaterally. Capillary refill is less than 3. MUSCULOSKELETAL: Patient reports some C-Spine tenderness upon palpation. Upon palpation and manipulation of his left arm and left shoulder, the patient did not report any pain. There is no obvious deformity noted to the left shoulder. INTEGUMENTARY: Patient's skin color is pink, warm, and dry. Patient has a small skin tear noted to right elbow. His left hip surgical wound has no bleeding noted. The wound is closed and steri-strips are still in place. NEUROLOGICAL: Patient is alert and oriented to person, place, though not time. Though the patient's neurological exam was somewhat limited at this time due to his drowsiness and confusion. Cranial nerves 2-12 do appear to be grossly intact. ASSESSMENT AND PLAN: 1. Anemia. This is of uncertain etiology at this time. There are no signs of bleeding noted. The patient's left hip wound has no signs of bleeding. Hemoccult stool was negative. We have ordered an anemia profile to be performed and are awaiting those results at this time. Will likely go ahead and transfuse the patient 1 unit of packed red blood cells given that he is symptomatic at this time with increased weakness, shortness of breath, hypoxia, as well as dizziness. 2. Status post left hip arthroplasty with fall. At this time, there appears to be no acute injury to the patient's left hip. We have placed a consult with Dr. Tong, his orthopedic surgeon, and will await his evaluation and further recommendations. 3. Hypoxia. This could be possibly secondary to his anemia, though the patient has had a recent surgery and has reported some dyspnea as well. We will continue to rule him out for a pulmonary embolism with a ventilation-perfusion lung scan. Due to the patient's creatinine is elevated, we are unable to perform a CTA of the chest. We will continue him on oxygen therapy and will continue to monitor his respiratory status closely. 4. Metabolic encephalopathy. This could be multifactorial. This could be possibly secondary to medications or infection. We have placed an order for urinalysis to be performed. The patient at this time is afebrile and white blood cell count is within normal limits. We have held any sedative medications at this time until the patient's mentation has improved and will closely monitor his neurological status. As previously mentioned, we are awaiting a CT of the head and we will continue to do neurologic checks q.4, as well as add some aspiration precautions. We have also implemented a diabetic diet, though will perform swallowing screen prior to starting this. 5. Chronic kidney disease stage 4. At this time, the patient's GFR is slightly worse compared to previous, going from 29 to 25. He has had increase of his creatinine from 2.2 to 2.5, as well as his BUN from 57 to 76. We will closely monitor his renal function. We will avoid nephrotoxic medications and renally dose medications as necessary. 6. Diabetes mellitus type 2. Given the patient's slightly worsened renal function, we will hold his metformin at this time. This way, we will also be able to better control his glucose levels. We will place him on a lispro low-dose sliding scale insulin with pattern fingerstick blood sugars and will monitor this closely. We have also placed order for hemoglobin A1c. 7. Hypertension. The patient does have a history of hypertension and normally takes losartan hydrochlorothiazide, though since his arrival, he has been borderline hypotensive. We will hold this medication at this time and monitor his hemodynamic status closely. The patient will be placed on the medical floor with telemetry. Vital signs q.4. Deep vein thrombosis prophylaxis will be provided with sequential compression devices. Gastrointestinal prophylaxis with Protonix 40 mg IV q.24 hours. During collection of hemoccult stool, there was a white discoloration noted to his stool. His denied any recent use of suppositories. For further evaluation of this we have place an order for a stool culture. Further orders and recommendations pending hospital course, diagnostic studies and physician evaluation. Dictated by ARNAUD Perdomo for Phillip Mora MD cc: MD Praful Emerson MD John R. Riehl, MD MTDD
[2016-12-10 09:42] LABS: HEMOGLOBIN A1C 6.9 % (4.8-6.0)
[2016-12-10 09:46] LABS: FERRITIN 78 ng/mL (30-400)
[2016-12-10 10:02] LABS: IRON SATURATION 8 %; TIBC 285 ug/dL; TOTAL IRON 22 ug/dL (53-167); UNBOUND IRON 263 ug/dL (112-346)
[2016-12-10 10:11] LABS: URINE CULTURE NEEDED? NO; URINE MICRO REVIEW NEEDED? NO; URINE SOURCE CLEAN CATCH
[2016-12-10 10:18] LABS: UR EPITHELIAL CELLS <10 /HPF (<10); URINE BACTERIA NEGATIVE /HPF; URINE RBC <10 /HPF (<10); URINE WBC <10 /HPF (<10)
[2016-12-10 10:31] LABS: BILIRUBIN URINE MODERATE (NEGATIVE); BLOOD URINE NEGATIVE (NEGATIVE); COLOR YELLOW; GLUCOSE URINE NEGATIVE (NEGATIVE); LEUKOCYTES URINE NEGATIVE (NEGATIVE); NITRITE URINE NEGATIVE (NEGATIVE); PH URINE 5.5; PROTEIN URINE 30 mg/dL (NEGATIVE); SP GRAVITY URINE 1.015; TURBIDITY URINE CLEAR (CLEAR); UROBILINOGEN URINE NORMAL (NORMAL)
[2016-12-10] MEDS: HUMALOG SUBQ SCH ×3 (12:02→21:29)
--- NOTE | 2016-12-10 14:50 | CONSULTATION ---
DATE OF CONSULTATION: 12/10/2016 ATTENDING PHYSICIAN: Dr. Lockhart. REASON FOR CONSULTATION: The patient fell status post hip surgery. HISTORY OF PRESENT ILLNESS: Mr. Russo is a 76-year-old white male, who back on November 24 had a left hip replacement. He was discharged on November 27. Since that time, he has been receiving physical therapy and, last night about 1230 hours, he fell landing on his hip, as well as had an elbow injury. It is not known whether he has syncopal event or loss of consciousness. He was just seen by Dr. Tong yesterday in the office, and early this morning he was admitted to the hospital and we were asked to evaluate him. PAST MEDICAL HISTORY: Diabetes type 2, hypertension, heart disease, hyperlipidemia and chronic kidney disease. SURGICAL HISTORY: Great toe amputation, right total hip arthroplasty, tonsillectomy, left orchidectomy, and the left hip arthroplasty on 11/24/2016. SOCIAL HISTORY: Patient lives at home with his . Smokes about a pack and a half cigarettes a day. No alcohol use. FAMILY HISTORY: Noncontributory. REVIEW OF SYSTEMS: Twelve point review of systems performed, and the patient answered negative in all areas, except for what was mentioned in the HPI. PHYSICAL EXAMINATION: General: The patient is awake. He is sitting in the bed. He is articulate and able to answer questions appropriately. He is oriented to person, place, and able to carry on a good conversation. HEENT: Head is normocephalic, atraumatic. Pupils equal, round, reactive to light. Nares patent. Throat without exudate. Cardiac: S1, S2 auscultated. No murmur, rub or gallop noted. Lungs: Clear to auscultation. Abdomen: Soft, nontender, nondistended. Bowel sounds present in all quadrants. Genitourinary: Not examined. Neurological: Patient has good sensation to dull touch in all extremities. Cranial nerves 2-12 grossly intact. Musculoskeletal: The patient has some pain in the left hip with passive range of motion. The patient states that he has been stiff in that area. He has brisk capillary refill distal to the incision. Incision looks good. It is healing well. Steri-Strips are covering the incision currently. X-RAY: Radiographic images obtained of the left hip reveal no acute injury. Not suspicious for any loosening, no fracture and no bony abnormality noted. ASSESSMENT: Left hip pain after a fall last night status post left hip arthroplasty. PLAN: After reviewing the images obtained of the patient's hip, I feel confident that there is no loosening or injury to the left hip, likely just some mild bruising. We will plan to get physical therapy to work with him while he is in the hospital and assist with pain control if necessary. Will have Mr. Russo follow up with Dr. Tong in about 2 weeks. Dictated by ARNAUD Pena for Alberto Tong MD cc: ARNAUD Pena MD Jagan Reddy, MD
[2016-12-10] MEDS ORDERED: NORCO-10 PO PRN (18:10)
[2016-12-10] MEDS: IMDUR PO SCH (21:27)
[2016-12-10] MEDS: MIRALAX PO SCH (21:27)
[2016-12-10] MEDS: CRESTOR PO SCH (21:27)
[2016-12-11] MEDS: ELAVIL PO SCH (01:02)
[2016-12-11] MEDS ORDERED: ATIVAN ONE (04:54)
[2016-12-11] MEDS: ATIVAN IV PRN ×3 (04:56→18:35)
[2016-12-11] MEDS: PROTONIX IV SCH (07:52)
[2016-12-11] MEDS: HUMALOG SUBQ SCH ×3 (07:53→18:37)
--- NOTE | 2016-12-11 10:01 | PROGRESS NOTE ---
DATE: 12/11/2016 SUBJECTIVE: I had a long discussion with the patient's at the bedside. The interval history was reviewed since the patient was admitted yesterday morning. This is a complicated historian. Interval history: The patient had a left hip arthroplasty by Dr. Tong on 11/26/2016 and discharged to the rehab and subsequently on home healthcare at home. He is very combative, shortness of breath, declining of activities of daily living. He was brought in with anemia, renal failure, and altered mental status. For the last 24 hours, the patient refused a V/Q scan. He refused a Lim catheter. Bladder scan is 43 mL. Ultrasound is pending. He was on IV fluids and also received 1 unit of packed RBCs. Labs are pending. This morning he is combative, agitated, and requiring restraints and Ativan. PAST MEDICAL HISTORY: Reviewed. PAST SURGICAL HISTORY: Reviewed. MEDICINES: Reviewed. REVIEW OF SYSTEMS: Not able to obtain, he was sedated. PHYSICAL EXAMINATION: Vital Signs: He is afebrile. His vital signs are stable. Blood pressure is 150/87, and oxygen saturation is 99% on 2 liters. HEENT: Within normal limits. Chest: Bilateral air entry. Heart: Sounds are regular. Abdomen: Belly is soft, obese, nontender. No signs of peritonitis. Extremities: No peripheral edema. INVESTIGATIONS: Outpatient venous Doppler studies on the legs are negative. CBC: Hematocrit 24 before transfusion, platelets 157,000. PT/INR is normal. Positive D-dimer at 2.86. SMA-7: BUN 76, creatinine 2.5, total protein 5.3. Cardiac enzymes and proBNP were normal. Chest x-ray was stable. Urinalysis is clear. The patient had a CT head and cervical spine. Hip x-rays were stable. ASSESSMENT AND PLAN: 1. Anemia. Stool test is negative. It is probably blood loss anemia from the surgery. Transfused 1 unit of packed red blood cells. Follow up on CBC. We will maintain hematocrit around 30. 2. Azotemia. Continue intravenous fluids. Rule out post obstruction. Bladder scan is negative, less than 100 mL. We will check the ultrasound of the kidneys. 3. Positive D-dimer. Venous Doppler studies were negative. Continue on Xarelto. 4. Anemia of renal failure. Ordered serum protein electrophoresis (SPEP). 5. Altered mental status, delirium. Ativan as needed. 6. We will slowly reconcile his home medicines. Currently, he has been on isosorbide and Crestor and amitriptyline. 7. Chronic pain due to osteoarthritis. We will use the hydrocodone 7.5 every 6 hours as needed. 8. Disposition. We will keep him over the weekend. I discussed with the patient's . LEVEL OF DOCUMENTATION: Was 35 minutes. cc: Praful Lockhart MD
[2016-12-11] MEDS: XARELTO PO SCH ×3 (12:00→15:42)
[2016-12-11] MEDS: NORCO-7.5 PO PRN (12:04)
[2016-12-11] MEDS: ZOFRAN IV PRN (12:05)
--- NOTE | 2016-12-11 13:18 | Diag Imaging Result Document ---
PROCEDURE NAME: US RENAL 2 (RETROPER) COMPLETE - 12/11/2016 BILATERAL RENAL ULTRASOUND: COMPARISON: No comparison exam. FINDINGS: The right kidney measures 9.4 x 5.1 x 5.6 cm in size. The left kidney measures 10 x 4.9 x 5.3 cm in size. There is no renal mass or hydronephrosis identified. There is no renal stone identified. There is no urinary bladder lesion identified. IMPRESSION: Unremarkable exam. No hydronephrosis.
[2016-12-11 18:24] LABS: MANUAL DIFF NEEDED? NO
[2016-12-11 18:32] LABS: BASO% 0.2 % (0.0-0.8); EOS# 0.05 X1000 (0.0-0.7); EOS% 0.8 % (0.0-10.0); HEMATOCRIT 30.1 % (42.0-52.0); HEMOGLOBIN 9.5 g/dL (14.0-18.0); LYMPH# 0.44 X1000 (1.2-3.4); LYMPH% 7.1 % (20.5-51.1); MCH 28.2 PG (27-31); MCHC 31.6 g/dL (33-37); MCV 89.3 FL (81-99); MONO# 0.53 X1000 (0.11-0.59); MONO% 8.6 % (1.7-9.3); NEUT% 83.3 % (42.2-75.2); PLT 163 X1000 (130-400); RBC 3.37 XMIL (4.7-6.1)
[2016-12-11] MEDS: DILAUDID IV PRN ×3 (18:35→21:30)
[2016-12-11] MEDS: NICODERM PATCH TD SCH (18:37)
[2016-12-11 19:23] LABS: ALBUMIN 3.6 g/dL (3.5-5.0); ALKALINE PHOSPHATASE 105 U/L (32-122); BUN 34 mg/dL (8-22); CALCIUM 9.7 mg/dL (8.8-10.2); CK PROFILE 27 U/L (24-204); GOT 11 U/L (10-34); GPT 8 U/L (10-44); TCO2 25 mmol/L (25-35); TOTAL BILIRUBIN 0.79 mg/dL (0.20-1.00)
[2016-12-11 19:24] LABS: CHLORIDE 103 mmol/L (98-107); POTASSIUM 4.9 mmol/L (3.5-5.1); SODIUM 143 mmol/L (136-145)
[2016-12-11 19:25] LABS: AGAP 15
[2016-12-11 19:26] LABS: COSMO 296
--- NOTE | 2016-12-11 22:29 | Diag Imaging Result Document ---
PROCEDURE NAME: ABDOMEN/PELVIS W/O CONTRAST - 12/11/2016 CT ABDOMEN AND PELVIS WITHOUT CONTRAST: COMPARISON: CT bony pelvis dated 08/03/2014. FINDINGS: There is a consolidation at the right lung base suggesting pneumonia. There may also be a component of atelectasis. The gallbladder is distended and there is high-dense sludge or stones layering in the gallbladder lumen. There is no surrounding inflammatory change. The appendix appears thickened measuring up to 1.1 cm in diameter. Although no obvious surrounding inflammatory changes are appreciated, based on size criteria, early appendicitis cannot be excluded. This thickening may be a result of excessive motion artifact, however. There is extensive aortoiliac atherosclerotic calcification and calcification involving several major aortic branches. There is no evidence of aneurysm. No focal inflammatory changes, free abdominal gas, or free fluid is appreciated, otherwise. Some of the pelvis is obscured by beam-hardening artifact related to bilateral hip arthroplasty. The bones are osteopenic and there is multilevel degenerative change throughout the spine. The remainder of the solid viscera of the abdomen and pelvis and the remainder of the GI tract is essentially unremarkable. IMPRESSION: 1. Right basilar lung consolidation suggesting pneumonia and perhaps a component of atelectasis. 2. Cholelithiasis with a distended gallbladder but no surrounding inflammatory change. 3. Apparent thickening of the appendix. However, there is no surrounding inflammatory change. Nonetheless, based on size criteria, early acute appendicitis cannot completely be excluded. Please correlate clinically. 4. Other incidental/nonacute findings detailed above.
[2016-12-12] MEDS: ATIVAN IV PRN ×4 (01:45→23:19)
[2016-12-12] MEDS: DILAUDID IV PRN ×5 (01:46→23:12)
[2016-12-12] MEDS: CRESTOR PO SCH ×2 (02:35→23:14)
[2016-12-12] MEDS: ELAVIL PO SCH ×2 (02:35→23:14)
[2016-12-12] MEDS: IMDUR PO SCH ×2 (02:36→23:14)
[2016-12-12] MEDS: HUMALOG SUBQ SCH ×5 (02:36→23:16)
[2016-12-12] MEDS: MIRALAX PO SCH ×2 (02:37→23:13)
[2016-12-12] MEDS: PROTONIX IV SCH ×2 (06:40→06:44)
[2016-12-12 07:13] LABS: MANUAL DIFF NEEDED? NO
[2016-12-12 07:16] LABS: BASO% 0.3 % (0.0-0.8); EOS# 0.03 X1000 (0.0-0.7); EOS% 0.4 % (0.0-10.0); HEMOGLOBIN 10.5 g/dL (14.0-18.0); IMM GRAN# 0.02 X1000 (0.0-0.04); IMM GRAN% 0.3 % (0.0-0.5); LYMPH# 0.54 X1000 (1.2-3.4); LYMPH% 7.5 % (20.5-51.1); MCH 28.5 PG (27-31); MCHC 31.8 g/dL (33-37); MCV 89.4 FL (81-99); MONO# 0.58 X1000 (0.11-0.59); MONO% 8.1 % (1.7-9.3); MPV 11.2 FL (7.4-10.4); NEUT% 83.4 % (42.2-75.2); PLT 171 X1000 (130-400); RBC 3.69 XMIL (4.7-6.1)
[2016-12-12 07:36] LABS: AGAP 20; BUN 28 mg/dL (8-22); CALCIUM 9.5 mg/dL (8.8-10.2); CHLORIDE 104 mmol/L (98-107); COSMO 302; POTASSIUM 4.6 mmol/L (3.5-5.1); SODIUM 147 mmol/L (136-145); TCO2 23 mmol/L (25-35)
[2016-12-12] MEDS: NICODERM PATCH TD SCH (09:10)
[2016-12-12] MEDS: XARELTO PO SCH (09:10)
--- NOTE | 2016-12-12 10:30 | PROGRESS NOTE ---
DATE: 12/12/2016 SUBJECTIVE: Mr. Russo is a 76-year-old white gentleman admitted with a fall. The patient is delirious. Admission history and physical noted. Yesterday patient was very restless, trying to get out of bed. Difficult to control. With his history of fall I entertained the possibility of pain as a contributing factor. I gave him Nubain. Patient was doing better. The patient was already on Ativan for comfort care. As a workup we did blood work. His renal function improved and hemoglobin improved but when patient gets off sedation he becomes more restless. CT scan did reveal possible pneumonia, gallstone, abnormal appendix but no evidence of acute appendicitis. According to , patient was doing better prior to hospitalization. He did have cough and chest congestion. No high-grade fever or chills. History part is limited. Admission history physical and yesterday's progress reviewed. OBJECTIVE: Vital signs: Noted. Neck: Supple. No JVD. Lungs: Bilateral good air entry present. Few basal crepitations. CVS: S1 and S2 heard. Abdomen: Soft, globular. Bowel sounds present extremities. No cyanosis, clubbing. No acute DVT. OIL PRODUCER: Patient is awake but delirious. Uncooperative for detailed exam. LAB DATA: Done today, hemoglobin 10.5, hematocrit 33, WBC count 7.17, platelet count was 171,000. BUN was 28, creatinine was 1; much improved. Urinalysis results reviewed. CT scan of the abdomen and pelvis did reveal abnormal appendix, right basilar lung consolidation suggesting pneumonia. The patient does have cholelithiasis. Clinically patient does not have significant tenderness right upper or lower quadrant. I am going to start the patient on IV antibiotics and pulmonary toilet. CONSIDERATIONS: 1. Delirium. We treat him for infection. Continue supportive care. Fall precaution. Close observation. 2. Acute kidney injury, improving. 3. Hip fracture. 4. Anemia of chronic disease. PLAN: Overall plan discussed with the and she is in agreement. I am going to get surgical consultation to evaluate abnormal CT scan. cc: MD Praful Barry MD
[2016-12-12] MEDS: DUONEB (A & A) INH SCH ×3 (10:54→21:25)
--- NOTE | 2016-12-12 11:58 | CONSULTATION ---
DATE OF CONSULTATION: 12/12/2016 REQUESTING PHYSICIAN: Dr. Romano. REASON FOR CONSULTATION: Abnormal CT scan with possible appendicitis. HISTORY OF PRESENT ILLNESS: A 76-year-old male who is recent from a left hip arthroplasty who was admitted on 12/10/2016 with anemia and altered mental status. The patient is still altered and is unable to give further history. By report with the , he has not had a significant amount of abdominal pain, but he had enough abdominal pain that a CT scan was ordered, and CT scan showed a distended gallbladder but no signs of inflammation and also a mildly thickened appendix, although no signs of periappendiceal inflammation. Again, the patient is altered and unable to give any kind of history, but no apparent abdominal pain noted on examination. Given his altered mental status, I am unable to give further details of his present illness. I did review his history and physical examination as noted by Kay Weinstein on 12/10/2016 and reviewed his progress notes in the chart. I was asked to evaluate the patient for an opinion. PAST MEDICAL HISTORY: Includes diabetes mellitus type 2, hypertension, coronary artery disease, hyperlipidemia, chronic kidney disease. PAST SURGICAL HISTORY: Includes previous right great toe amputation, right hip arthroplasty, recent left hip arthroplasty, tonsillectomy, orchiectomy. SOCIAL HISTORY: By report, the patient is a former smoker. No alcohol or illicit drug use. FAMILY HISTORY: Positive for renal cancer, Alzheimer's, and Crohn's. MEDICATIONS: Current MAR reviewed. Of note, he has been started on Zosyn. He is on Xarelto, also. REVIEW OF SYSTEMS: Unobtainable secondary to patient's mental status. PHYSICAL EXAMINATION: Vital signs: The patient is currently afebrile, temperature 97.4. Pulse is mildly tachycardic at 101. Blood pressure 202/163. O2 sat 96% on room air. General: Confusion and combative male, looks stated age. HEENT: Normocephalic, atraumatic. Pupils equal, round, and reactive to light. Mucous membranes moist. Oropharynx benign. Neck: Supple, trachea midline. Cardiovascular: Mildly tachycardic. Lungs: Grossly clear. Abdomen: Difficult to exam secondary to patient's mental status but no obvious peritoneal signs appreciated. I could not elicit any kind of abdominal tenderness. Extremities: Previous left hip surgery incision noted and healing well. Neurologic: Again, the patient is combative and altered. Vascular: All extremities perfused. LABORATORY: Reviewed. White blood cell count 7, which is essentially stable. Hematocrit 33. Platelet count 171. IMAGING: CT scan independently reviewed, and radiology report reviewed and noted above. ASSESSMENT AND PLAN: A 76-year-old male with altered mental status, multiple medical comorbidities and possible intraabdominal process. 1. Altered mental status at this time being managed by Dr. Romano. Will defer any further management to them. At this point, etiology is still unclear. 2. Multiple medical comorbidities currently being managed by his primary care physician. Will defer further management and followup to him. 3. Intraabdominal process. At this time, I clinically do not suspect that he has appendicitis or acute cholecystitis. He is being treated currently for a pneumonia and has been on Zosyn. I suspect that this is adequate coverage for any potential intraabdominal process. Again, at this time, given his altered mental status, unable to delineate any abdominal pain at this time, so will recommend continue to monitor. cc: MD Praful Matos MD
[2016-12-12] MEDS: ZOSYN 3.375 GM/NS 3.375 GM/50 ML IVPB IV SCH ×3 (12:03→23:19)
[2016-12-13] MEDS: ZOSYN 3.375 GM/NS 3.375 GM/50 ML IVPB IV SCH ×4 (03:48→22:27)
[2016-12-13] MEDS: DUONEB (A & A) INH SCH ×4 (03:57→21:19)
[2016-12-13] MEDS: ATIVAN IV PRN ×2 (06:00→17:28)
--- NOTE | 2016-12-13 06:12 | PROGRESS NOTE ---
DATE: 12/13/2016 SUBJECTIVE: Patient resting comfortably. No issues reported by the nursing staff. OBJECTIVE: Vital Signs: Patient is currently afebrile. Temperature 97.3 degrees. Most recent heart rate 76. Most recent respiratory rate 20. Most recent blood pressure 175 /80. O2 saturation 96% on room air. General Examination: No acute distress. Resting comfortably. Cardiovascular: Regular rate and rhythm. Lungs: Grossly clear. Abdomen: Soft, nontender, nondistended. Laboratory: Currently pending. ASSESSMENT AND PLAN: A 76-year-old, male with multiple medical comorbidities with possible cholecystitis and appendicitis. 1. Multiple medical comorbidities, currently being managed by Dr. Romano. 2. Altered mental status. Etiology is still unclear. No major changes. Currently being evaluated by Dr. Romano also. 3. Intra-abdominal process. At this time, he clinically does not show any additional signs of abdominal pain. This suggests that he does not have an acute abdominal processes occurring. He is on antibiotics and would recommend continue that. No surgical intervention at this time. cc: MD Praful Matos MD MTDD
[2016-12-13] MEDS: DILAUDID IV PRN (06:48)
--- NOTE | 2016-12-13 08:03 | PROGRESS NOTE ---
DATE: 12/13/2016 SUBJECTIVE: Mr. Russo is doing fair. He seems to be doing some better. At times, patient is very much agitated. Hard to redirect. Trying to get out of bed. When they try to change him the patient is in pain, more so in the left hip. Orthopedic surgeon evaluated according to him hip looks fairly fine. The patient has some redness on his left wound on the left hip. I started patient on antibiotics yesterday considering possible pneumonia. No chest pain. Again, history part was limited. Oral intake is poor. The patient is not taking medications by mouth at times. OBJECTIVE: Vital signs: Noted. Neck: Supple. No JVD. Lungs: Decreased air entry, right base. Occasional wheezing. CVS: S1 and S2 heard. Abdomen: Soft, globular. Bowel sounds present. Extremities: No cyanosis, clubbing. No acute DVT. The patient does have some redness on the left hip wound but no drainage. CONSIDERATION AND ASSESSMENT: 1. Delirium. We did a CT of the abdomen and pelvis which did show possible consolidation right lower lung. The patient also has some redness left hip wound. I am going to treat him with antibiotics. 2. Patient had gallstones and abnormal appendix on CT. I got surgical evaluation; recommendation noted. 3. Hypertension. The patient's oral intake is poor. I started him on Clinimix. 4. Noninsulin-dependent diabetes mellitus. Patient is on sliding scale insulin. 5. We will continue gastrointestinal prophylaxis. The patient is on Xarelto. 6. Hyperlipidemia. On Crestor. 7. His a.m. labs is pending. I will check the lab. I am going to get a sedimentation rate. His vitamin B12 level was low normal. I am going to go ahead and give him vitamin B12 injection today. Continue the rest of the medication. Close observation. cc: MD Praful Barry MD
[2016-12-13 08:29] LABS: ALLEN TEST YES; BE 0.7 mmoll (-3.0-3.0); BLOOD TYPE ARTERIAL; DRAW SITE R RADIAL; METHB 0.3 % (0.0-1.5); PCO2(98.6) 33 mmHg (35-45); PO2(98.6) 75 mmHg (60-100); SAMPLE BLOOD; SAO2 94.7 % (95.0-100.0); THB 10.5 g/dL (11.5-17.4); pH(98.6) 7.47 (7.35-7.45)
[2016-12-13] MEDS: NICODERM PATCH TD SCH (08:32)
[2016-12-13] MEDS: CLINIMIX E 4.25%-5% SOLUTION 1,000 ML IV SCH ×3 (08:32→18:27)
[2016-12-13] MEDS: XARELTO PO SCH (08:33)
[2016-12-13 09:26] LABS: MANUAL DIFF NEEDED? NO
[2016-12-13 09:31] LABS: BASO% 0.2 % (0.0-0.8); EOS# 0.06 X1000 (0.0-0.7); EOS% 0.7 % (0.0-10.0); HEMOGLOBIN 10.8 g/dL (14.0-18.0); IMM GRAN# 0.02 X1000 (0.0-0.04); IMM GRAN% 0.2 % (0.0-0.5); LYMPH# 0.62 X1000 (1.2-3.4); LYMPH% 7.4 % (20.5-51.1); MCH 28.3 PG (27-31); MCHC 31.8 g/dL (33-37); MCV 89.2 FL (81-99); MONO# 0.77 X1000 (0.11-0.59); MONO% 9.2 % (1.7-9.3); MPV 10.9 FL (7.4-10.4); NEUT% 82.3 % (42.2-75.2); PLT 180 X1000 (130-400); RBC 3.81 XMIL (4.7-6.1)
[2016-12-13] MEDS: HUMALOG SUBQ SCH ×4 (09:39→20:16)
[2016-12-13 10:09] LABS: MAGNESIUM 1.4 mg/dL (1.5-2.7)
[2016-12-13 10:11] LABS: ALBUMIN 3.9 g/dL (3.5-5.0); DIRECT BILIRUBIN 0.3 mg/dL (0.00-0.20); TOTAL BILIRUBIN 0.82 mg/dL (0.20-1.00); TOTAL PROTEIN 6.4 g/dL (6.3-8.3)
[2016-12-13] MEDS ORDERED: MAGNESIUM SULFATE 2 GM/S.W.I. 2 GM/50 ML IVPB IV ONE ×2 (10:21→17:00)
[2016-12-13 10:47] LABS: CALCIUM 9.7 mg/dL (8.8-10.2); POTASSIUM 4.4 mmol/L (3.5-5.1)
[2016-12-13] MEDS ORDERED: ATIVAN IM ONE (10:53)
[2016-12-13] MEDS: CALMOSEPTINE OINTMENT TOP PRN (11:37)
[2016-12-13] MEDS ORDERED: DILAUDID IM PRN (15:07)
[2016-12-13] MEDS ORDERED: ROCEPHIN IM ONE (15:13)
[2016-12-13] MEDS ORDERED: XYLOCAINE-MPF 1% INJ ONE (15:13)
[2016-12-13] MEDS: PROTONIX IV SCH (16:44)
[2016-12-13 16:50] LABS: URINE CULTURE NEEDED? NO; URINE SOURCE CATH
[2016-12-13 16:56] LABS: BILIRUBIN URINE MODERATE (NEGATIVE); BLOOD URINE MODERATE (NEGATIVE); COLOR YELLOW; GLUCOSE URINE NEGATIVE (NEGATIVE); LEUKOCYTES URINE NEGATIVE (NEGATIVE); NITRITE URINE NEGATIVE (NEGATIVE); PH URINE 5.5; PROTEIN URINE 200 mg/dL (NEGATIVE); SP GRAVITY URINE 1.019; TURBIDITY URINE HAZY (CLEAR); UROBILINOGEN URINE 2 mg/dL (NORMAL)
[2016-12-13 16:59] LABS: UR EPITHELIAL CELLS <10 /HPF (<10); URINE BACTERIA NEGATIVE /HPF; URINE MICRO REVIEW NEEDED? YES; URINE RBC <10 /HPF (<10); URINE WBC <10 /HPF (<10)
[2016-12-13 17:00] LABS: URINE CASTS GRANULAR PRESENT
[2016-12-13] MEDS: DILAUDID IM PRN (17:57)
--- NOTE | 2016-12-13 18:38 | PROGRESS NOTE ---
DATE: 12/13/2016 SUBJECTIVE: Mr. Russo is doing fair. I have significant problems with Mr. Russo in the form of restlessness, agitation, uncooperative for his care. The patient was pulling his IV out. We tried to start IV and we could not. To draw blood at least 4 people have to hold the patient. I gave him IM Ativan to calm him down so we can start IV but we were not successful. Talked to surgeon and we decided to transfer patient to ICU where we can sedate him more effectively, watch him and surgeon decided to put central line if needed. My goal is to start him on IV Clinimix for nutrition, give him IV antibiotics and watch him closely. The patient does have delirium. So far workup only revealed consolidation in the lung. There is some redness on the left hip wound. Otherwise patient is moving all 4 limbs but still delirious, uncooperative for detailed neurologic examination. OBJECTIVE: Vital signs: Noted. Lungs: Bilateral good air entry present. Few basal crepitation. CVS: S1 and S2. Tachycardia. Abdomen: Soft, globular. Bowel sounds present. TRUCK RENTAL CLERK: Alert, awake but agitated. DIAGNOSTIC DATA: I repeated blood gas this morning and those were benign, acceptable. I did check his sedimentation rate. It was elevated 50. Patient is on DVT prophylaxis. Also he is on Xarelto but he is not taking p.o. medications. Electrolytes. BUN was 29, creatinine 1.2. I did check his LFT and those were benign. We put Lim catheter. It has some blood but otherwise could be due to trauma. I am going to repeat chest x-ray and blood work tomorrow. CONSIDERATION: Delirium. We are treating him for infection. Will get neurology consult. Continue rest of the treatment and close observation. Overall plan and prognosis discussed with the and she is in agreement. His other problem includes hip pain, pneumonia, tachycardia most likely due to stress. Overall prognosis fair to guarded and I discussed with the patient's and she is in agreement. cc: MD Praful Barry MD
[2016-12-13] MEDS ORDERED: LOPRESSOR IV PRN (18:53)
[2016-12-13] MEDS ORDERED: LOPRESSOR ONE (19:07)
[2016-12-13] MEDS: CRESTOR PO SCH (20:11)
[2016-12-13] MEDS: IMDUR PO SCH (20:12)
[2016-12-13] MEDS: ELAVIL PO SCH (20:12)
[2016-12-13] MEDS: MIRALAX PO SCH (20:13)
[2016-12-13] MEDS ORDERED: STERILE WATER INJ. INJ ONE (22:19)
[2016-12-13] MEDS ORDERED: GEODON IM ONE (22:19)
[2016-12-14] MEDS: ATIVAN IV PRN ×3 (00:13→15:16)
[2016-12-14] MEDS: DILAUDID IM PRN ×4 (00:19→20:18)
[2016-12-14] MEDS: LOPRESSOR IV PRN ×2 (03:32→09:01)
[2016-12-14] MEDS: DUONEB (A & A) INH SCH ×4 (03:38→20:59)
[2016-12-14] MEDS: ZOSYN 3.375 GM/NS 3.375 GM/50 ML IVPB IV SCH ×4 (04:45→20:47)
--- NOTE | 2016-12-14 06:11 | PROGRESS NOTE ---
DATE: 12/14/2016 SUBJECTIVE: The patient moved from the floor to the ICU given increased delirium. He had been pulling out IVs and he was placed in 4 point restraints in the ICU. He is currently being evaluated for his delirium. Neurology has been consulted. Since he has been in the unit, they have had a difficult time with getting his blood pressure, but they were able to get IV access. At this time he is somewhat calm. OBJECTIVE: Vital Signs: Patient is currently afebrile. Temperature 98.7 degrees. Most recent pulse 90. Most recent blood pressure 182/101. O2 saturation 97%. General examination: Sedated, but appears somewhat restless. Cardiovascular: Regular rate and rhythm. Lungs: Grossly clear. Abdomen: Soft, nontender, nondistended. LABORATORY: Currently pending. ASSESSMENT AND PLAN: A 76-year-old male with abdominal pain and delirium. 1. Multiple medical comorbidities, currently being managed by the primary care team. 2. Altered mental status, etiology is unclear. He has required restraints. There has been a consult for Neurology. Will followup with their recommendation. He had a CT scan done several days ago that showed no acute process but may need to consider repeat CT scan if his altered mental status does not improve. 3. Intra-abdominal process at this time. He does not show any signs of any kind of abdominal pain or any signs of acute abdominal process. I will continue to monitor and be available if something changes. cc: MD Praful Matos MD
[2016-12-14] MEDS: HUMALOG SUBQ SCH ×4 (06:29→20:18)
[2016-12-14] MEDS: PROTONIX IV SCH (06:30)
[2016-12-14 08:57] LABS: MANUAL DIFF NEEDED? NO
[2016-12-14] MEDS: CLINIMIX E 4.25%-5% SOLUTION 1,000 ML IV SCH (09:01)
[2016-12-14] MEDS: NICODERM PATCH TD SCH (09:01)
--- NOTE | 2016-12-14 09:01 | PROGRESS NOTE ---
DATE: 12/14/2016 This is a level 3 ICU followup. SUBJECTIVE: The interval history was reviewed. The patient did receive 1 unit of packed RBCs. His anemia and azotemia were improved. Over the weekend, the patient was confused and combative. Initial CT head was negative. The patient was seen by Dr. Romano. Besides, the patient was also consulted by Dr. Mckoy for abdominal pain. He was restrained and transferred to the ICU. The patient was given Geodon tray filler, 2 o'clock, and he was sedated. He is hardly arousable. He had a poor IV access. He had a line placed on the left side. REVIEW OF SYSTEMS: None reported and unable to obtain because of the sedation. PAST MEDICAL HISTORY: Reviewed. PAST SURGICAL HISTORY: Reviewed. MEDICINES: Reviewed. PHYSICAL EXAMINATION: Vital Signs: He is afebrile. Blood pressure is running high. His vital signs are stable. Pulse oximetry 96% on room air. General: He is hardly arousable. HEENT: Pupils equal, reactive to light. Chest: Clear. Heart: Sounds are regular. Abdomen: Belly is soft. Unable to assess exam due to sedation. Extremities: Restrained. He had a peripheral IV on the left arm. Neurologic: No obvious neurological deficits noted. INVESTIGATIONS: CBC yesterday, white cell count 8.4, hematocrit 34, platelets 180,000. ABG, pH is 7.51, pCO2 of 33, PO2 of 75 on room air. SMA-7: Sodium 148, potassium 4.4, chloride 105, BUN 29, creatinine 1.2, glucose 149, magnesium 1.4. LFTs were normal. Stool for occult blood was negative. Urine cultures are pending. CT scan of the abdomen and pelvis, possible pneumonia in the right lung, cholelithiasis, apparently thickening of the appendix. ASSESSMENT AND PLAN: 1. Altered mental status. Etiology to be determined. The plan is CT head. Based on that, further recommendations will be followed. 2. Anemia due to postoperative hip surgery on the left side, status post 1 unit of packed red blood cells. Hematocrit is now 34. No signs of gastrointestinal bleeding noted. 3. Prerenal azotemia. Ultrasound was negative for hydronephrosis. Refused for Lim catheter. Followup renal function tests came back normal. 4. Chronic nicotine abuse on Nicotrol patches. 5. Gallstones, asymptomatic. Dr. Mckoy's consultation was appreciated. 6. Status post left hip arthroplasty, stable. 7. Hypomagnesemia. The magnesium was replaced. 8. Agitation with delirium. Geodon as needed. 9. Nutritional status. Intravenous Clinimix. 10. Possible right-sided pneumonia, on intravenous Zosyn. 11. Deep vein thrombosis prophylaxis, on Xarelto. 12. We will discuss with the family about his status. TIME SPENT: The level of documentation is 35 minutes. cc: Praful Lockhart MD
[2016-12-14 09:04] LABS: BASO% 0.3 % (0.0-0.8); EOS# 0.05 X1000 (0.0-0.7); EOS% 0.7 % (0.0-10.0); HEMATOCRIT 32.3 % (42.0-52.0); HEMOGLOBIN 10.2 g/dL (14.0-18.0); IMM GRAN# 0.03 X1000 (0.0-0.04); IMM GRAN% 0.4 % (0.0-0.5); LYMPH# 0.38 X1000 (1.2-3.4); LYMPH% 5.6 % (20.5-51.1); MCH 27.9 PG (27-31); MCHC 31.6 g/dL (33-37); MCV 88.5 FL (81-99); MONO# 0.61 X1000 (0.11-0.59); MONO% 8.9 % (1.7-9.3); MPV 11.3 FL (7.4-10.4); NEUT% 84.1 % (42.2-75.2); PLT 171 X1000 (130-400); RBC 3.65 XMIL (4.7-6.1)
[2016-12-14] MEDS ORDERED: NS 250 ML ONE (09:05)
[2016-12-14 09:11] LABS: INR 1.11; PROTIME 11.7 Seconds (9.2-11.7)
[2016-12-14] MEDS: XARELTO PO SCH (09:28)
[2016-12-14 09:32] LABS: AGAP 16; ALBUMIN 3.5 g/dL (3.5-5.0); ALKALINE PHOSPHATASE 99 U/L (32-122); BUN 30 mg/dL (8-22); CALCIUM 9.4 mg/dL (8.8-10.2); CHLORIDE 107 mmol/L (98-107); COSMO 305; GOT 8 U/L (10-34); GPT 5 U/L (10-44); MAGNESIUM 1.9 mg/dL (1.5-2.7); POTASSIUM 3.8 mmol/L (3.5-5.1); SODIUM 147 mmol/L (136-145); TCO2 24 mmol/L (25-35); TOTAL BILIRUBIN 0.69 mg/dL (0.20-1.00); TOTAL PROTEIN 6.4 g/dL (6.3-8.3)
--- NOTE | 2016-12-14 12:03 | Diag Imaging Result Document ---
PROCEDURE NAME: HEAD W/O CONTRAST - 12/14/2016 CT OF THE HEAD WITHOUT CONTRAST: FINDINGS: There are calcifications in both vertebral and internal carotid arteries. There are calcifications in the basal ganglia bilaterally. There is no evidence of bleed, mass effect, or abnormal extra-axial fluid collection. There is some subcortical and periventricular encephalomalacia in the posterior left parietal lobe which was also present on 12/10/2016. IMPRESSION: Chronic ischemic changes. No evidence of acute disease.
--- NOTE | 2016-12-14 16:17 | Diag Imaging Result Document ---
PROCEDURE NAME: MRI BRAIN W/O CONTRAST - 12/14/2016 MRI OF THE BRAIN: FINDINGS: There is patchy hyperintensity in the periventricular white matter of both hemispheres. There is also subcortical hyperintensity particularly in the posterior parietal lobe on the left. The study is impaired to a variable degree by patient motion. There is no evidence of restricted diffusion. There is no evidence of bleed or abnormal extra-axial fluid collection. There are no previous MRI studies available for comparison. There are no previous CT examinations, including that of 12/10/2016 and 12/14/2016. The encephalomalacia in the posterior left parietal lobe was present on the previous study of 12/10/2016. IMPRESSION: No evidence of acute intracranial disease. 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
--- NOTE | 2016-12-14 19:42 | CONSULTATION ---
DATE OF CONSULTATION: 12/14/2016 This patient is seen in consultation at the request of Mars Romano MD for evaluation of delirium. HISTORY OF PRESENT ILLNESS: History is taken from the chart review as the patient is altered and no one is at bedside. The patient is a 76-year-old, male, with a history of hypertension, type 2 diabetes, heart disease, hyperlipidemia and chronic kidney disease, who recently underwent a left hip arthroplasty on 11/24/2016 who was admitted on 11/2016 with progressively worsening confusion since his discharge home as well as periods of agitation. On admission, he was noted to be anemic and received transfusion for this. He was also noted to be hypoxic on room air at 84% oxygen saturation. Additionally, he has a history of chronic kidney disease and his renal function was noted to be acutely worse at the time of admission. He has a possible right-sided pneumonia and is being treated with IV Zosyn. His magnesium was low and this has been replaced, and he has been evaluated by Dr. Mckoy for possible abdominal issues and apparently has asymptomatic gallstones. The patient has had a noncontrasted head CT on admission that did not show any acute findings. He has had a repeat head CT today that has been personally reviewed and is unchanged from the previous study. There are no acute findings on the head CT from today. The radiology read is pending. On admission, he had denied fever, body aches or chills, headache, chest pain, nausea, vomiting, diarrhea, dysuria. There was a question of whether or not he had dark bowel movements. PAST MEDICAL HISTORY: 1. Type 2 diabetes. 2. Hypertension. 3. Heart disease. 4. Hyperlipidemia. 5. Chronic kidney disease. 6. Right great toe amputation. 7. Right total hip arthroplasty. 8. Tonsillectomy. 9. Left orchiectomy. 10. Total left hip arthroplasty 11/24/2016. SOCIAL HISTORY: He is a former smoker of 1/2 pack per day. He quit 20 years ago. No known alcohol or illicit drug use. Lives with his at home. FAMILY HISTORY: Brother with Alzheimer's disease and Crohn's disease. Father has renal cancer. Unknown history of stroke in the family as the patient is altered and not able to assess. ALLERGIES: Levofloxacin is noted in the chart. MEDICATIONS CURRENT: Amitriptyline 25 mg p.o. at bedtime. [place] 7.5 one by mouth q.6 hours p.r.n. Hydromorphone 0.5 mg IM q.4 hours p.r.n. Imdur. Ativan 1 mg IV q.6 hours p.r.n. Metoprolol. Zofran. Protonix. Xarelto 10 mg p.o. daily. Crestor 20 mg p.o. at bedtime. Zosyn. Polyethylene glycol. Nicotine patch. Menthol/zinc oxide. Humalog. Others noted in chart. REVIEW OF SYSTEMS: Unable to be conducted due to the patient's altered mental status. PHYSICAL EXAMINATION: Vital Signs: Reviewed. Blood pressures in the last 24 hours have ranged from the 160s to 190s over 70s to 104. General: He is somnolent, difficult to arouse. Lying in bed with restraints. HEENT: Anicteric. No erythema. Dry mucous membranes. Neck: Supple. Could not appreciate carotid bruits, but difficult to assess. Cardiovascular: Regular rate and rhythm. No murmurs were appreciated. Lungs: Clear to auscultation bilaterally anteriorly. Abdomen: Soft, I did not appreciate grimacing with palpation. Extremities: His right great toe is amputated. No significant edema noted. Neurological: Mental status: He is somnolent, he is unable to answer questions. He is unable to arouse to loud voice. He does react to sternal rub and grimaces. Cranial nerves, his pupils are equal, round, reactive to light. Myopic 2 mm to 1.5 mm OU. He has doll's eyes. His face appears symmetrical at baseline. Seems to have equal grimace. Motor exam is normal bulk and tone. He at times tenses his arms and legs during my exam as if resisting. He also has bilateral independent tremor of his upper extremities, which comes and goes. His strength is at least against gravity in the upper extremities. In the lower extremities it is at least 2/5. Further testing was limited. He withdrawals his arms to painful stimulation and he moves his feet to painful stimulation and grimaces. Reflexes are reduced throughout. Plantar response is flexor on the left. Unable to test on the right. No clonus. Sensory: He responds to painful stimulation in all extremities. Cerebellar/ coordination/gait unable to assess due to mental status changes. PERTINENT DIAGNOSTICS: Head CT 12/10/2016 personally reviewed. Agree with Radiology interpretation- no evidence of acute intracranial injury. He does have generalized atrophic changes as well as ischemic changes at the left posterior parietal region. There are also small basal ganglia and anterior pontine calcifications. CT cervical spine 12/10/16 showed substantial multilevel degenerative disease. No evidence of fracture or subluxation and extensive carotid atherosclerotic calcifications. Head CT 12/14/2016 personally reviewed. No changes from previous head CT. No acute findings. Radiology read is pending. CT abdomen and pelvis, 12/11/2016 notable for right basilar lung consolidation, cholelithiasis with distended gallbladder, but no inflammatory change, thickening of the appendix, but no inflammatory change. Hemoglobin 7.5, hematocrit 24 on admission, now 10 and 32 respectively. Today's white count is 6.8, platelets are 171,000. His percent lymphocytes have been low, today 5.6. His PT is 11.7, INR 1.1. D-dimer 2.86. PTT 27. Sodium 147, potassium 3.8, CO2 24, BUN was 76 on admission. Today is 30. Creatinine was 2.5 on admission, today is 1.1. Glucose 215. Hemoglobin A1c 6.9, calcium 9.4, phosphorus 3, magnesium today is 1.9. AST 8, ALT 5. Alkaline phosphatase 99. Vitamin B12 is 295. Folate is 12. Urinalysis shows elevated protein, 200 today, 40 ketones. Moderate blood. No evidence of infection. Urine culture was negative. No occult blood in the stool. ASSESSMENT AND PLAN: This is a 76-year-old, male, with history of type 2 diabetes, hypertension, heart disease, hyperlipidemia and chronic kidney disease as well as a recent left hip arthroplasty on 11/24/2016 who presents with progressively worsening confusion and periods of agitation since returning home from rehab. 1. Encephalopathy. The differential for his mental status changes includes toxic metabolic encephalopathy, infection, medication affects, subclinical seizure. He also has multiple risk factors for stroke and this cannot be entirely excluded based on his limited exam. His encephalopathy is most likely multifactorial. His renal function was acutely worse on admission. He was hypoxic and noted to be anemic. He is being treated for possible pneumonia at this time. Two head CTs have not shown any acute findings, but I can appreciate some ischemic changes particularly in the left posterior parietal region which may be old. I agree with treating for the possible pneumonia and correcting the anemia as well as the renal function. Would avoid sedating medications as able. I have ordered a routine EEG to evaluate his encephalopathy and look for evidence of seizure. I have also ordered an MRI of the brain to better evaluate for any recent stroke. Thank you for this consultation. We will follow. cc: MD Praful Godoy MD MTDEarnestine
[2016-12-14] MEDS: CRESTOR PO SCH (20:36)
[2016-12-14] MEDS: ELAVIL PO SCH (20:37)
[2016-12-14] MEDS: IMDUR PO SCH (20:42)
[2016-12-14] MEDS: MIRALAX PO SCH (20:42)
--- NOTE | 2016-12-14 23:02 | EEG REPORT ---
DATE: 12/14/2016 REFERRING PHYSICIAN: Ashley Altman MD EEG: #[id number]. INSTRUCTIONAL SPECIALIST: Eliza Dominguez. BACKGROUND INFORMATION: Technique: Digitally recorded EEG was performed with 1 EKG channel. HISTORY OF PRESENT ILLNESS: This is a 76-year-old male, who presents with increased confusion and periods of agitation at home after his hip surgery. An EEG is ordered to evaluate for altered mental status and detect evidence of possible seizures. MEDICATIONS: Dilaudid and Ativan were given at 10 a.m. EEG FINDINGS: A posterior dominant alpha rhythm is notably absent. The background consists of mixed frequencies, primarily theta and delta with some admixed faster frequencies. Spontaneous variability is good. No definite focal slowing is seen. No epileptiform discharges are seen. No seizures are seen. Hyperventilation was not performed. Photic stimulation did not induce a driving response. The patient is poorly responsive for this study. No stage 2 sleep is seen. The EKG shows regular RR interval. IMPRESSION AND RECOMMENDATIONS: Abnormal routine EEG due to: 1. Moderate generalized background slowing indicative of a moderate encephalopathy. Generalized slowing is a nonspecific finding that can be seen in processes that diffusely affect the cerebrum, including toxic, metabolic, post hypoxic, pharmacologic or infectious conditions. 2. No epileptiform abnormalities or seizures were noted. This does not rule out an underlying seizure disorder. cc: MD Praful Godoy MD [facility]
[2016-12-15] MEDS: CLINIMIX E 4.25%-5% SOLUTION 1,000 ML IV SCH ×4 (00:24→17:15)
[2016-12-15] MEDS: DILAUDID IM PRN ×3 (02:08→15:32)
[2016-12-15] MEDS: DUONEB (A & A) INH SCH ×4 (02:41→19:46)
[2016-12-15] MEDS: ZOSYN 3.375 GM/NS 3.375 GM/50 ML IVPB IV SCH ×4 (04:34→22:26)
[2016-12-15 04:44] LABS: MANUAL DIFF NEEDED? NO
[2016-12-15 04:48] LABS: ALLEN TEST YES; BLOOD TYPE ARTERIAL; DRAW SITE R RADIAL; METHB 0.5 % (0.0-1.5); MODALITY CANNULA; O2(CT) 13.4 mL/dL (15.0-23.0); PCO2(98.6) 49 mmHg (35-45); PO2(98.6) 119 mmHg (60-100); SAMPLE BLOOD; SAO2 96.4 % (95.0-100.0); THB 9.8 g/dL (11.5-17.4); pH(98.6) 7.39 (7.35-7.45)
[2016-12-15 04:50] LABS: BASO% 0.2 % (0.0-0.8); EOS# 0.09 X1000 (0.0-0.7); EOS% 1.5 % (0.0-10.0); HEMATOCRIT 30.8 % (42.0-52.0); HEMOGLOBIN 9.4 g/dL (14.0-18.0); IMM GRAN# 0.02 X1000 (0.0-0.04); IMM GRAN% 0.3 % (0.0-0.5); LYMPH# 0.48 X1000 (1.2-3.4); MCH 27.6 PG (27-31); MCHC 30.5 g/dL (33-37); MCV 90.6 FL (81-99); MONO# 0.53 X1000 (0.11-0.59); MONO% 8.8 % (1.7-9.3); MPV 11.1 FL (7.4-10.4); NEUT% 81.2 % (42.2-75.2); PLT 135 X1000 (130-400)
[2016-12-15 05:06] LABS: AGAP 13; BUN 33 mg/dL (8-22); CALCIUM 9.1 mg/dL (8.8-10.2); CHLORIDE 106 mmol/L (98-107); COSMO 301; POTASSIUM 4.5 mmol/L (3.5-5.1); SODIUM 145 mmol/L (136-145); TCO2 26 mmol/L (25-35)
[2016-12-15] MEDS: SODIUM CHLORIDE 0.9% INJ SCH (06:04)
[2016-12-15] MEDS: HUMALOG SUBQ SCH ×4 (06:04→20:19)
[2016-12-15] MEDS: PROTONIX IV SCH (06:04)
[2016-12-15] MEDS: ATIVAN IV PRN ×2 (08:32→15:32)
[2016-12-15] MEDS: NICODERM PATCH TD SCH (08:39)
--- NOTE | 2016-12-15 09:22 | PROGRESS NOTE ---
DATE: 12/15/2016 The patient was given Dilaudid 0.5 mg at 2:00. He was very combative and agitated. He is still confused. Not able to follow verbal commands. He is not eating for the last 48 hours. His came by for 30 minutes. The patient had a CT head and MRI of the brain. The patient also had EEG done. REVIEW OF SYSTEMS: Not able to obtain. MEDICATIONS: Reviewed. OBJECTIVE: Afebrile. Vitals are stable. Nasal oxygen 2 L is 100%. He is barely arousable. Chest is clear. Heart sounds are regular. Belly is soft and scaphoid, nontender. Good bowel sounds. Extremities: No peripheral edema, cyanosis or clubbing. He was restrained. DIAGNOSTIC DATA: CBC showed white cell count of 6, hematocrit 30.8, platelet count 135. ABG showed pH of 7.39, pCO2 is 49, pO2 is 119. SMA-7 showed sodium 145, potassium 4.5, chloride 106, BUN is 33, creatinine 1.1, glucose 200. ASSESSMENT AND PLAN: 1. Acute metabolic encephalopathy. CT of head and MRI of brain were negative. EEG was abnormal. We will use judicious sedation. 2. Aspiration pneumonia, on IV Zosyn. Poor p.o. intake for the last 2 days. Increase Clinimix to 100 mL per hour. 3. We will put in an NG tube for medications and nourishment. 4. Anemia and azotemia, improved. 5. Chronic pain. Could be withdrawals from the pain medicines. We will discuss with about living will. Level of documentation is 35 minutes. cc: Praful Lockhart MD
--- NOTE | 2016-12-15 09:45 | Diag Imaging Result Document ---
PROCEDURE NAME: CHEST-PORTABLE - 12/15/2016 CHEST/ABDOMEN FOR TUBE FINDINGS: This image is significantly degraded by patient motion. A nasogastric tube is thought to be present, with its tip near the gastroesophageal junction. Recommend advancing approximately 4 cm and repeat for confirmation. Findings were discussed with the mail clerk bills in ICU. IMPRESSION: Suboptimal radiograph. Recommend advancement of the NG tube approximately 4 cm, with repeat radiograph.
--- NOTE | 2016-12-15 10:28 | Diag Imaging Result Document ---
PROCEDURE NAME: CHEST-PORTABLE - 12/15/2016 PLAIN RADIOGRAPH OF THE LOWER CHEST AND UPPER ABDOMEN: COMPARISON: 12/15/2016. FINDINGS: The NG tube tip is now well visualized. It projects below the diaphragm and is assumed to be in the body or fundus of the stomach in the expected position. IMPRESSION: NG tube now identified below the diaphragm in the expected position.
[2016-12-15] MEDS: ZOFRAN IV PRN (11:37)
[2016-12-15] MEDS: NORCO-7.5 PO PRN (11:45)
[2016-12-15] MEDS: XARELTO PO SCH (11:46)
--- NOTE | 2016-12-15 14:37 | PROGRESS NOTE ---
DATE: 12/15/2016 SUBJECTIVE: The patient has been combative and agitated. He is still confused. He has not been eating. MRI of the brain and routine EEG have been performed. He has gotten Dilaudid. OBJECTIVE: Vital Signs: He is afebrile. Vital signs are reviewed. General : He is lying in bed with wrist restraints. He is asleep. He arouses briefly to calling his name. He regards me briefly. He does not follow commands. He is not oriented. HEENT: His pupils are equal, round, and reactive to light. His gaze is conjugate. His face is symmetric at rest and shows equal activation. Neurologic: He has normal bulk and tone. He moans at the slightest touch of any of his extremities. He is at least against gravity in upper and at least 2/ 5 in the lower extremities. He does respond to painful stimulation in all of his extremities. Reflexes are reduced throughout. Plantar response is flexor on the left, unable to assess on the right. No clonus. He does respond to painful stimulation in all extremities. PERTINENT DIAGNOSTICS: MRI of the brain without contrast on 12/14/2016, personally reviewed and agree with the interpretation. No evidence of acute disease. 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 Routine EEG was personally reviewed. It is abnormal. It shows moderate generalized background slowing, which is indicative of a moderate encephalopathy. This is a nonspecific finding. There were no epileptiform discharges or seizures noted. White count 6, hemoglobin 9.4, hematocrit 31, platelets 135,000. Sedimentation rate 0.01. Sodium 145, potassium 4.5, BUN 33, creatinine 1.1, glucose 193, magnesium 1.9. AST and ALT are low at 8 and 5, respectively. Alkaline phosphatase 99. Urinalysis was negative for leukocytes and negative for bacteria. ASSESSMENT AND PLAN: A 76-year-old male with multiple stroke risk factors and CKD admitted with progressively worsening confusion and periods of agitation since returning home from rehabilitation status post hip surgery on the 11/14/2016. 1. Encephalopathy. Multifactorial. Renal function acutely worse on admission, was hypoxic and anemic on admission. Currently treated for pneumonia. MRI obtained yesterday to better evaluate for recent stroke and this was negative. Routine EEG just showed a moderate, nonspecific encephalopathy. Agree with management of his metabolic issues and his pneumonia as you are doing. Again, would avoid sedating medications as able. Will sign off now. Please contact Neurology again if felt indicated. Thank you for this consultation. cc: MD Praful Godoy MD MTDD
[2016-12-15] MEDS: MIRALAX PO SCH (20:18)
[2016-12-15] MEDS: ELAVIL PO SCH (20:18)
[2016-12-15] MEDS: IMDUR PO SCH (20:18)
[2016-12-15] MEDS: CRESTOR PO SCH (20:18)
[2016-12-16] MEDS: DILAUDID IM PRN ×3 (03:38→22:01)
[2016-12-16] MEDS: ZOSYN 3.375 GM/NS 3.375 GM/50 ML IVPB IV SCH ×4 (03:42→22:02)
[2016-12-16] MEDS: CLINIMIX E 4.25%-5% SOLUTION 1,000 ML IV SCH ×2 (03:42→15:01)
[2016-12-16] MEDS: DUONEB (A & A) INH SCH ×2 (03:54→21:35)
[2016-12-16 04:43] LABS: ALLEN TEST YES; BE 2.7 mmoll (-3.0-3.0); BLOOD TYPE ARTERIAL; DRAW SITE R RADIAL; METHB 0.6 % (0.0-1.5); O2(CT) 18.2 mL/dL (15.0-23.0); PCO2(98.6) 50 mmHg (35-45); PO2(98.6) 83 mmHg (60-100); SAMPLE BLOOD; SAO2 94.8 % (95.0-100.0); THB 13.7 g/dL (11.5-17.4); pH(98.6) 7.37 (7.35-7.45)
[2016-12-16 04:44] LABS: MODALITY CANNULA
[2016-12-16 04:55] LABS: MANUAL DIFF NEEDED? NO
[2016-12-16 05:01] LABS: BASO% 0.3 % (0.0-0.8); EOS# 0.13 X1000 (0.0-0.7); HEMATOCRIT 29.6 % (42.0-52.0); HEMOGLOBIN 9.1 g/dL (14.0-18.0); IMM GRAN# 0.03 X1000 (0.0-0.04); IMM GRAN% 0.5 % (0.0-0.5); LYMPH% 10.6 % (20.5-51.1); MCH 28.2 PG (27-31); MCHC 30.7 g/dL (33-37); MCV 91.6 FL (81-99); MONO# 0.71 X1000 (0.11-0.59); MONO% 10.7 % (1.7-9.3); MPV 11.4 FL (7.4-10.4); NEUT% 75.9 % (42.2-75.2); PLT 147 X1000 (130-400); RBC 3.23 XMIL (4.7-6.1)
[2016-12-16 05:16] LABS: CALCIUM 8.8 mg/dL (8.8-10.2); POTASSIUM 4.9 mmol/L (3.5-5.1)
[2016-12-16] MEDS: PROTONIX IV SCH (06:25)
[2016-12-16] MEDS: HUMALOG SUBQ SCH ×4 (06:25→20:11)
[2016-12-16] MEDS: SODIUM CHLORIDE 0.9% INJ SCH (06:25)
--- NOTE | 2016-12-16 06:27 | Diag Imaging Result Document ---
PROCEDURE NAME: CHEST-PORTABLE - 12/16/2016 PORTABLE CHEST: COMPARISON: Compared to 12/15/2016. FINDINGS: There is a right-sided PICC line with tip overlying the right atrium. The patient is rotated to the right. The heart is not enlarged. No consolidation. No pleural effusions identified. There is a nasogastric tube overlying the esophagus and stomach. IMPRESSION: Negative chest.
[2016-12-16] MEDS: XARELTO PO SCH (09:03)
[2016-12-16] MEDS: NICODERM PATCH TD SCH ×2 (09:03→09:10)
[2016-12-16] MEDS: NORCO-7.5 PO PRN ×2 (09:05→20:10)
[2016-12-16] MEDS: ATIVAN IV PRN ×2 (13:13→21:31)
--- NOTE | 2016-12-16 20:03 | PROGRESS NOTE ---
DATE: 12/16/2016 LEVEL 3 DOCUMENTATION: Comprehensive discussion with the patient, and the daughter. INTERVAL HISTORY: Patient remained combative, agitated, requiring Dilaudid and Ativan. He is still under restraints. He had a PICC line on the right side. He had an NG tube placed and a chest x-ray was obtained on 12/15/2016. It is just below the diaphragm. The patient remains sedated, combative. REVIEW OF SYSTEMS: Not able to obtain. OBJECTIVE: Vital signs: Are stable. Pulse oximetry 2 L are 97%. HEENT: Within normal limits. Neck: Supple. Chest: Clear. Heart: Sounds are regular. Abdomen: Belly is soft, nontender. : Had a Lim catheter. Urine is dark and he had a PICC line on the right side. INVESTIGATIONS: Chest x-ray was reviewed with radiologist. LABORATORIES: CBC: White cell count 6.6, hematocrit 29, platelets 147,000. ABG: PH is 7.37, pCO2 50, PO2 83 on 28%. SMA7: Sodium 140, potassium 4.9, chloride 106, BUN 49, creatinine 1.2, glucose 211. Urine cultures were negative. Stool for occult blood was negative. ASSESSMENT AND PLAN: 1. Acute metabolic encephalopathy. Combative. computed tomography, magnetic resonance imaging were negative. 2. Anemia, improved. Azotemia, improved. 3. Impending dehydration. Aspiration pneumonia. Continue elevation of the bed. NG tube. We will start with enteral feedings which has been stopped because of nausea and vomiting. 4. History of gallstones. Seen by Dr. Mckoy. Nothing acute. 5. Aspiration pneumonia. On IV Zosyn. 6. Nutrition. Continue on IV Clinimix 100 mL/hour and slowly begin with enteral feeding. 7. Left hip arthroplasty. Stable on Xarelto. 8. Family discussion with the and the daughter in the ICU waiting room more than 35 minutes about his medical condition and possible advanced directives in the future. No decisions made. We will follow up. cc: Praful Lockhart MD
[2016-12-16] MEDS: IMDUR PO SCH (20:10)
[2016-12-16] MEDS: CRESTOR PO SCH (20:10)
[2016-12-16] MEDS: MIRALAX PO SCH (20:10)
[2016-12-16] MEDS: ELAVIL PO SCH (20:10)
[2016-12-17] MEDS: CLINIMIX E 4.25%-5% SOLUTION 1,000 ML IV SCH ×4 (01:47→20:51)
[2016-12-17] MEDS: ZOSYN 3.375 GM/NS 3.375 GM/50 ML IVPB IV SCH ×4 (03:04→20:52)
[2016-12-17] MEDS: DUONEB (A & A) INH SCH ×4 (03:11→21:30)
[2016-12-17 05:11] LABS: MANUAL DIFF NEEDED? NO
[2016-12-17 05:25] LABS: BASO% 0.4 % (0.0-0.8); EOS# 0.12 X1000 (0.0-0.7); EOS% 2.4 % (0.0-10.0); HEMATOCRIT 28.6 % (42.0-52.0); HEMOGLOBIN 8.8 g/dL (14.0-18.0); IMM GRAN# 0.02 X1000 (0.0-0.04); IMM GRAN% 0.4 % (0.0-0.5); LYMPH# 0.63 X1000 (1.2-3.4); LYMPH% 12.8 % (20.5-51.1); MCH 28.1 PG (27-31); MCHC 30.8 g/dL (33-37); MCV 91.4 FL (81-99); MONO# 0.47 X1000 (0.11-0.59); MONO% 9.6 % (1.7-9.3); MPV 11.3 FL (7.4-10.4); NEUT% 74.4 % (42.2-75.2); PLT 109 X1000 (130-400); RBC 3.13 XMIL (4.7-6.1)
[2016-12-17 06:01] LABS: AGAP 11; BUN 44 mg/dL (8-22); CALCIUM 8.9 mg/dL (8.8-10.2); CHLORIDE 104 mmol/L (98-107); COSMO 303; POTASSIUM 4.8 mmol/L (3.5-5.1); SODIUM 142 mmol/L (136-145); TCO2 27 mmol/L (25-35)
[2016-12-17] MEDS: HUMALOG SUBQ SCH ×4 (06:12→20:54)
[2016-12-17] MEDS: SODIUM CHLORIDE 0.9% INJ SCH (06:12)
[2016-12-17] MEDS: PROTONIX IV SCH (06:12)
--- NOTE | 2016-12-17 07:24 | Diag Imaging Result Document ---
PROCEDURE NAME: CHEST-PORTABLE - 12/17/2016 PORTABLE CHEST X-RAY: COMPARISON: 12/16/2016. FINDINGS: Stable right PICC line. Stable low lung volumes. No significant infiltrates. Heart size remains normal. IMPRESSION: No acute disease or change from prior.
[2016-12-17] MEDS: XARELTO PO SCH (08:45)
[2016-12-17] MEDS: NICODERM PATCH TD SCH (08:51)
[2016-12-17] MEDS: NORCO-7.5 PO PRN ×2 (09:50→17:15)
--- NOTE | 2016-12-17 18:32 | PROGRESS NOTE ---
DATE: 12/17/2016 SUBJECTIVE: The patient still remains in restraints, combative. Cut down the Ativan last night. He is not following with verbal comments. REVIEW OF SYSTEMS: None reported. He was started back on tube feedings. PHYSICAL EXAMINATION: Vital Signs: Afebrile, slightly tachycardic. Blood pressure is running high. 2 L of nasal cannula, 96%. HEENT: Exam slightly vague, not able to follow with verbal commands. Chest: Clear. Heart: Sounds are regular. Belly is soft, nontender. Good bowel sounds. He is hurting all over the body. Unable to assess the pain level. Neuro: Exam combative, agitated. Status post PICC line on the right side. Lim and NG tube were placed. INVESTIGATIONS: CBC: White cell count 4.9, hematocrit 28, platelets 109. SMA-7: Sodium 142, potassium 4.8, chloride 104, BUN 44, creatinine 1.0, glucose 265. ASSESSMENT AND PLAN: 1. Altered mental status due to metabolic encephalopathy. Not improving. 2. Impending dehydration. Continue on IV Clinimix 100 mL an hour and enteral feeding with Glucerna. 3. Chronic pain. Discontinue Dilaudid. Ativan decrease the dose, and [place] through the nasogastric tube. 4. Deep vein thrombosis prophylaxis with Xarelto. We will administer all the medicine through the nasogastric tube. 5. PICC line on the right side. Stable. 6. Aspiration pneumonia. On IV Zosyn. Discussed the findings and the plan of care with the daughter, who is visiting from [place]. LEVEL OF DOCUMENTATION: Is 35 minutes. cc: Praful Lockhart MD
[2016-12-17] MEDS: MIRALAX PO SCH (20:52)
[2016-12-17] MEDS: IMDUR PO SCH (20:53)
[2016-12-17] MEDS: CRESTOR PO SCH (20:54)
[2016-12-17] MEDS: ELAVIL PO SCH (21:12)
[2016-12-17] MEDS: ATIVAN IV PRN (21:20)
[2016-12-18] MEDS: ZOSYN 3.375 GM/NS 3.375 GM/50 ML IVPB IV SCH ×4 (03:30→21:19)
[2016-12-18] MEDS: DUONEB (A & A) INH SCH ×4 (04:00→22:36)
[2016-12-18] MEDS: ATIVAN IV PRN ×2 (04:04→19:17)
[2016-12-18 04:57] LABS: MANUAL DIFF NEEDED? NO
[2016-12-18 05:00] LABS: BASO% 0.2 % (0.0-0.8); EOS# 0.22 X1000 (0.0-0.7); EOS% 3.6 % (0.0-10.0); HEMATOCRIT 30.3 % (42.0-52.0); HEMOGLOBIN 9.4 g/dL (14.0-18.0); IMM GRAN# 0.03 X1000 (0.0-0.04); IMM GRAN% 0.5 % (0.0-0.5); LYMPH# 0.84 X1000 (1.2-3.4); LYMPH% 13.8 % (20.5-51.1); MCV 90.2 FL (81-99); MONO# 0.55 X1000 (0.11-0.59); MPV 11.3 FL (7.4-10.4); NEUT% 72.9 % (42.2-75.2); PLT 122 X1000 (130-400); RBC 3.36 XMIL (4.7-6.1)
[2016-12-18 05:18] LABS: AGAP 18; BUN 43 mg/dL (8-22); CALCIUM 8.7 mg/dL (8.8-10.2); CHLORIDE 102 mmol/L (98-107); COSMO 307; POTASSIUM 4.7 mmol/L (3.5-5.1); SODIUM 146 mmol/L (136-145); TCO2 26 mmol/L (25-35)
[2016-12-18] MEDS: HUMALOG SUBQ SCH ×4 (06:13→21:07)
[2016-12-18] MEDS: PROTONIX IV SCH (06:13)
[2016-12-18] MEDS: CLINIMIX E 4.25%-5% SOLUTION 1,000 ML IV SCH ×2 (06:13→16:02)
--- NOTE | 2016-12-18 07:36 | Diag Imaging Result Document ---
PROCEDURE NAME: CHEST-PORTABLE - 12/18/2016 CHEST ERECT: TIME: 0535 hours. FINDINGS: The inspiration is somewhat suboptimal. There has been no appreciable change in the chest since 10/01/2015. IMPRESSION: Stable chest.
[2016-12-18] MEDS: NICODERM PATCH TD SCH (08:01)
[2016-12-18] MEDS: XARELTO PO SCH (08:01)
[2016-12-18] MEDS: NORCO-7.5 PO PRN ×2 (08:15→14:23)
--- NOTE | 2016-12-18 10:23 | CONSULTATION ---
DATE OF CONSULTATION: 12/18/2016 SUBJECTIVE: The patient's mental status has not improved. He is awake, very combative, agitated, not able to follow with verbal commands. The daughter was at bedside. We tried to encourage to speak out. He is nonverbal. He is moaning and constantly moving all the extremities under restraints. He is noncooperative. Nicotine patch was discontinued. He has been tolerating the tube feeds very well. He still has a PICC line on the right side. Lim placed. He is getting enteral feeding. REVIEW OF SYSTEMS: Not able to obtain. PAST MEDICAL HISTORY: Medicines were reviewed. PHYSICAL EXAMINATION: Vital Signs: On exam, he is afebrile. Heart rate is 94 , blood pressure 100/68 on 2 L nasal cannula 97%. HEENT Exam: Pupils equal, reactive to light. Chest: Some transmitted rhonchi. Heart: Distant heart sounds. Abdomen: Belly is soft. He is less tender than yesterday. Extremities: Left great toe was amputated. No edema noted. Skin: Ecchymotic, loose, dry. No obvious deficits noted. INVESTIGATIONS: CBC: White cell count 6.1, hematocrit 30, platelets 122. ABG : The pH is 7.37, pCO2 of 50, PO2 83. SMA 7: Sodium 146, potassium 4.7, chloride 102, BUN 43, creatinine 0.9, glucose 192. Calcium 8.7. Chest x-ray on 12/18: Suboptimal exam. NG tube was seen. PICC line on the right side. No infiltrates. ASSESSMENT AND PLAN: 1. Altered mental status due to metabolic encephalopathy, not improving. Previous workup was negative. 2. Impending dehydration. Continue on intravenous Clinimix 100 mL/hour. 3. Enteral feeding. Glucerna 20 mL increased to 30. Elevated BUN and needs elevated sodium. Will administer free water 250 mL every 6 hours. 4. Aspiration bronchitis. Intravenous Zosyn. 5. Left hip arthroplasty. Stable. 6. Deep vein thrombosis prophylaxis with Xarelto. 7. Constipation on polyethylene glycol. 8. Care of the skin, bladder, and bowels. 9. Chronic pain, questionable withdrawals. We will use the [place] through the nasogastric tube and Ativan just at bedtime. Deep vein thrombosis prophylaxis with intravenous Protonix. Keep the elevation of the bed 90 degrees from 45 degrees. 10. Hyperlipidemia on Crestor. I discussed with daughter. Continue to monitor in intensive care unit and we will reassess in the next 48 hours. If things will not improve, we will discuss about advanced directives. LEVEL OF DOCUMENTATION: 35 minutes. cc: Praful Lockhart MD MTDD
[2016-12-18] MEDS: CRESTOR PO SCH (21:06)
[2016-12-18] MEDS: IMDUR PO SCH (21:06)
[2016-12-18] MEDS: ELAVIL PO SCH (21:06)
[2016-12-18] MEDS: MIRALAX PO SCH (21:08)
[2016-12-19] MEDS: CLINIMIX E 4.25%-5% SOLUTION 1,000 ML IV SCH ×3 (02:20→23:26)
[2016-12-19] MEDS: ATIVAN IV PRN ×2 (02:49→20:11)
[2016-12-19] MEDS: ZOSYN 3.375 GM/NS 3.375 GM/50 ML IVPB IV SCH ×4 (02:50→23:26)
[2016-12-19] MEDS: PROTONIX IV SCH (08:20)
[2016-12-19] MEDS: HUMALOG SUBQ SCH ×4 (08:20→20:11)
[2016-12-19] MEDS: DUONEB (A & A) INH SCH ×5 (08:21→23:19)
[2016-12-19] MEDS: XARELTO PO SCH (08:29)
[2016-12-19] MEDS: NORCO-7.5 PO PRN ×2 (11:16→16:19)
--- NOTE | 2016-12-19 11:36 | PROGRESS NOTE ---
DATE: 12/19/2016 SUBJECTIVE: Mr. Russo, who is a 76-year-old white gentleman, had left hip arthroplasty. He is very restless. OBJECTIVE: Lungs: Sound clear. Heart: Sounds are normal. Abdomen: Soft, nontender. Extremities: There is a bruise over the left knee; however, there is no leg edema. General: He is very restless. Vital signs: Stable. LABORATORY: Hemoglobin 9.4, hematocrit 30.3. Electrolytes are normal. BUN is 43 and creatinine 0.9. PLAN: He is getting enteric feeding through NG tube with Glucerna and Clinimix also, and he is on IV Zosyn. Overall condition is unchanged. I am going to add Geodon 10 mg q.6 hours p.r.n. for agitation, as he cannot tolerate Ativan much. Overall condition is unchanged. cc: MD Praful Dixon MD
[2016-12-19] MEDS: GEODON IM PRN (12:08)
[2016-12-19] MEDS: STERILE WATER INJ. INJ PRN (12:08)
[2016-12-19] MEDS: CRESTOR PO SCH (20:10)
[2016-12-19] MEDS: MIRALAX PO SCH (20:11)
[2016-12-19] MEDS: IMDUR PO SCH (20:11)
[2016-12-19] MEDS: ELAVIL PO SCH (20:21)
[2016-12-20] MEDS: NORCO-7.5 PO PRN ×2 (00:49→11:24)
[2016-12-20] MEDS: GEODON IM PRN ×2 (03:19→11:38)
[2016-12-20] MEDS: STERILE WATER INJ. INJ PRN (03:20)
[2016-12-20] MEDS: ZOSYN 3.375 GM/NS 3.375 GM/50 ML IVPB IV SCH ×4 (03:39→20:19)
[2016-12-20] MEDS: DUONEB (A & A) INH SCH ×4 (04:15→22:47)
[2016-12-20 05:27] LABS: MANUAL DIFF NEEDED? NO
[2016-12-20 05:54] LABS: BASO% 0.2 % (0.0-0.8); EOS# 0.13 X1000 (0.0-0.7); EOS% 2.2 % (0.0-10.0); HEMATOCRIT 30.8 % (42.0-52.0); HEMOGLOBIN 9.9 g/dL (14.0-18.0); LYMPH# 0.68 X1000 (1.2-3.4); LYMPH% 11.4 % (20.5-51.1); MCH 28.2 PG (27-31); MCHC 32.1 g/dL (33-37); MCV 87.7 FL (81-99); MONO# 0.64 X1000 (0.11-0.59); MONO% 10.8 % (1.7-9.3); MPV 11.5 FL (7.4-10.4); NEUT% 75.4 % (42.2-75.2); PLT 90 X1000 (130-400); RBC 3.51 XMIL (4.7-6.1)
[2016-12-20 05:56] LABS: AGAP 13; BUN 51 mg/dL (8-22); CALCIUM 9.7 mg/dL (8.8-10.2); CHLORIDE 100 mmol/L (98-107); COSMO 303; POTASSIUM 4.8 mmol/L (3.5-5.1); SODIUM 139 mmol/L (136-145); TCO2 26 mmol/L (25-35)
[2016-12-20] MEDS: PROTONIX IV SCH (06:02)
[2016-12-20] MEDS: HUMALOG SUBQ SCH ×4 (06:02→20:49)
[2016-12-20] MEDS: SODIUM CHLORIDE 0.9% INJ SCH (06:02)
[2016-12-20] MEDS: XARELTO PO SCH (08:53)
[2016-12-20] MEDS: CLINIMIX E 4.25%-5% SOLUTION 1,000 ML IV SCH ×2 (10:30→17:50)
[2016-12-20] MEDS: ATIVAN IV PRN (14:48)
--- NOTE | 2016-12-20 14:49 | PROGRESS NOTE ---
DATE: 12/20/2016 Mr. Russo is in ICU bed 3. Mr. Russo is somewhat drowsy today. He is less agitated. He is getting Glucerna through the NG tube and getting Clinimix. He is on Zosyn. His CBC is within normal range. Electrolytes are normal. BUN is still 51, creatinine 1.0. Vital signs are stable. We will continue with the current management. cc: MD Praful Dixon MD
[2016-12-20] MEDS: CRESTOR PO SCH (20:19)
[2016-12-20] MEDS: ELAVIL PO SCH (20:19)
[2016-12-20] MEDS: MIRALAX PO SCH (20:19)
[2016-12-20] MEDS: IMDUR PO SCH (20:19)
[2016-12-21] MEDS: CLINIMIX E 4.25%-5% SOLUTION 1,000 ML IV SCH ×4 (00:43→21:35)
[2016-12-21] MEDS: ZOSYN 3.375 GM/NS 3.375 GM/50 ML IVPB IV SCH ×4 (02:40→20:12)
[2016-12-21] MEDS: PROTONIX IV SCH (06:12)
[2016-12-21] MEDS: SODIUM CHLORIDE 0.9% INJ SCH (06:12)
[2016-12-21] MEDS: DUONEB (A & A) INH SCH ×4 (06:24→22:48)
[2016-12-21] MEDS: HUMALOG SUBQ SCH ×4 (06:32→20:14)
[2016-12-21] MEDS ORDERED: GRALISE PO SCH (09:00)
--- NOTE | 2016-12-21 09:21 | PROGRESS NOTE ---
DATE: 12/21/2016 Level 3 documentation. SUBJECTIVE: Interval history over the weekend noted. Patient requiring less sedation. He is in a lot of pain. He is awake. Not combative and agitated. Still not able to follow with verbal comments. REVIEW OF SYSTEMS: None reported. PAST MEDICAL HISTORY: Reviewed. MEDICINES: Reviewed. PHYSICAL EXAMINATION: Vital Signs: He is afebrile. Vital signs are stable. Blood pressure is 140/58, 98% on room air. General Examination: Awake. Chest: Clear to auscultation. Heart: Heart sounds are regular. Abdomen: Belly is soft, nontender. Good bowel sounds. Extremities: No peripheral edema, cyanosis, clubbing. Neurological: No obvious neurological deficits noted. INVESTIGATIONS: CBC: White cell count 5.9, hematocrit 30, platelets 90,000. SMA 7: BUN is 51, creatinine 1.6, glucose 220. Chest x-ray was stable. ASSESSMENT AND PLAN: 1. Altered mental status, probably withdrawal from pain medications. Continue on [place]. 2. Chronic pain. We will start on gabapentin. 3. Impending dehydration. Continue on nasogastric tube with increased Glucerna to 40 mL per hour and free water 250 mL every 6 hours for 2 days. 4. Right-sided peripherally inserted central catheter line. Continue on intravenous Clinimix. 5. We will wean off sedation, slowly take off the restraints. 6. Deep venous thrombosis prophylaxis with Xarelto. 7. Gastrointestinal prophylaxis with intravenous Protonix. 8. Aspiration pneumonia is improving on intravenous Zosyn. 9. Check the pending labs. We will discuss with the family. They were not there in the intensive care unit. 10. Level of documentation, 35 minutes. cc: Praful Lockhart MD
[2016-12-21] MEDS: XARELTO PO SCH (09:44)
[2016-12-21] MEDS: NEURONTIN PO SCH ×2 (09:45→18:02)
[2016-12-21] MEDS: CALMOSEPTINE OINTMENT TOP PRN ×2 (11:44→18:16)
[2016-12-21] MEDS: NORCO-7.5 PO PRN (18:34)
[2016-12-21] MEDS: MIRALAX PO SCH (20:11)
[2016-12-21] MEDS: ELAVIL PO SCH (20:12)
[2016-12-21] MEDS: CRESTOR PO SCH (20:12)
[2016-12-21] MEDS: IMDUR PO SCH (20:12)
[2016-12-21] MEDS: ATIVAN IV PRN (21:35)
[2016-12-22] MEDS: NEURONTIN PO SCH ×3 (02:03→16:44)
[2016-12-22] MEDS: ZOSYN 3.375 GM/NS 3.375 GM/50 ML IVPB IV SCH (02:03)
[2016-12-22] MEDS: DUONEB (A & A) INH SCH ×4 (03:26→22:49)
[2016-12-22 05:11] LABS: MANUAL DIFF NEEDED? NO
[2016-12-22 05:21] LABS: BASO% 0.2 % (0.0-0.8); EOS# 0.12 X1000 (0.0-0.7); EOS% 2.7 % (0.0-10.0); HEMATOCRIT 27.1 % (42.0-52.0); HEMOGLOBIN 8.4 g/dL (14.0-18.0); LYMPH# 0.67 X1000 (1.2-3.4); MCH 27.6 PG (27-31); MCV 89.1 FL (81-99); MONO# 0.47 X1000 (0.11-0.59); MONO% 10.5 % (1.7-9.3); MPV 13.6 FL (7.4-10.4); NEUT% 71.6 % (42.2-75.2); PLT 77 X1000 (130-400); RBC 3.04 XMIL (4.7-6.1)
[2016-12-22] MEDS: HUMALOG SUBQ SCH ×4 (06:06→20:01)
[2016-12-22] MEDS: SODIUM CHLORIDE 0.9% INJ SCH (06:06)
[2016-12-22] MEDS: PROTONIX IV SCH (06:06)
[2016-12-22 06:09] LABS: AGAP 15; BUN 51 mg/dL (8-22); CALCIUM 9.3 mg/dL (8.8-10.2); CHLORIDE 100 mmol/L (98-107); COSMO 303; POTASSIUM 4.7 mmol/L (3.5-5.1); SODIUM 139 mmol/L (136-145); TCO2 24 mmol/L (25-35)
[2016-12-22] MEDS: XARELTO PO SCH (08:30)
[2016-12-22] MEDS: CLINIMIX E 4.25%-5% SOLUTION 1,000 ML IV SCH ×2 (08:30→19:59)
[2016-12-22] MEDS: NORCO-7.5 PO PRN ×2 (08:35→22:08)
[2016-12-22] MEDS: ATIVAN IV PRN ×3 (10:27→22:51)
--- NOTE | 2016-12-22 18:33 | PROGRESS NOTE ---
DATE: 12/22/2016 SUBJECTIVE: No significant improvement. Continues to express pain all over the body. Agitated, requiring Ativan. No history from the patient. He is completely bedridden with restraints. He is not able to follow with verbal commands. REVIEW OF SYSTEMS: None reported. OBJECTIVE: Vitals: Afebrile. Vitals stable. Blood pressure is slightly high. 94% on room air. HEENT: Within normal limits. NG tube was seen. He has a PICC line on the right side. Chest: Clear. Heart: Sounds are regular. Abdomen: Belly scar is soft, scaphoid. Extremities: Skin is dry. No edema. Ecchymotic with contractures noted in both feet. Neurologic : No focal deficits. INVESTIGATIONS: White cell count 4.4, hematocrit 27, platelets 77,000. SMA7: Sodium 139, potassium 4.7, chloride 100, BUN 50, creatinine 1, glucose 300. ASSESSMENT AND PLAN: 1. Acute metabolic encephalopathy. He is not improving. 2. Dementia with agitation. Geodon and Ativan as needed. 3. Impending dehydration. Intravenous Clinimix and also increase the enteral feedings at 40 mL/hour and free water. 4. Thrombocytopenia. Discontinue Zosyn. Chest x-ray is improving. Normal white cell count. 5. Chronic pain on [place] through the nasogastric tube. 6. Care of the skin, bladder, and bowels. 7. Disposition. I do not see significant improvement. We will discuss with the family about possible hospice care and also will discuss advanced directives. There is no significant quality of life. LEVEL OF DOCUMENTATION: 25 minutes. cc: Praful Lockhart MD MTDEarnestine
[2016-12-22] MEDS: IMDUR PO SCH (20:00)
[2016-12-22] MEDS: CRESTOR PO SCH (20:00)
[2016-12-22] MEDS: ELAVIL PO SCH (20:01)
[2016-12-22] MEDS: MIRALAX PO SCH (20:02)
[2016-12-23] MEDS: NEURONTIN PO SCH ×3 (01:58→18:35)
[2016-12-23] MEDS: DUONEB (A & A) INH SCH ×4 (03:30→21:21)
[2016-12-23 05:12] LABS: MANUAL DIFF NEEDED? NO
[2016-12-23 05:17] LABS: BASO% 0.2 % (0.0-0.8); EOS% 3.7 % (0.0-10.0); HEMATOCRIT 30.6 % (42.0-52.0); HEMOGLOBIN 9.7 g/dL (14.0-18.0); LYMPH# 0.78 X1000 (1.2-3.4); LYMPH% 14.3 % (20.5-51.1); MCH 28.2 PG (27-31); MCHC 31.7 g/dL (33-37); MONO# 0.58 X1000 (0.11-0.59); MONO% 10.6 % (1.7-9.3); NEUT% 71.2 % (42.2-75.2); PLT 99 X1000 (130-400); RBC 3.44 XMIL (4.7-6.1)
[2016-12-23 05:34] LABS: AGAP 10; BUN 48 mg/dL (8-22); CALCIUM 9.6 mg/dL (8.8-10.2); CHLORIDE 101 mmol/L (98-107); COSMO 300; SODIUM 138 mmol/L (136-145); TCO2 27 mmol/L (25-35)
[2016-12-23] MEDS: HUMALOG SUBQ SCH ×4 (06:03→20:03)
[2016-12-23] MEDS: CLINIMIX E 4.25%-5% SOLUTION 1,000 ML IV SCH ×3 (06:04→23:19)
[2016-12-23] MEDS: SODIUM CHLORIDE 0.9% INJ SCH (06:04)
[2016-12-23] MEDS: PROTONIX IV SCH (06:04)
--- NOTE | 2016-12-23 08:52 | PROGRESS NOTE ---
DATE: 12/23/2016 SUBJECTIVE: In the last 24 hours I had a family meeting more than 35 minutes with the daughter and the about his mental status change. Apparently, he was lucid for about a few hours off the restraints and then became agitated and started back again on restraints. He is not able to follow verbal comments. He was given 1 mg of Ativan at 9 o'clock. He is sedated this morning. Not able to arouse. REVIEW OF SYSTEMS: None reported other than chronic pain. The nurses noted he has some frequent loose stools.Vital signs: He is afebrile. Vitals are stable. I's and O's are positive about 1.4 L. HEENT: Within normal limits. He has an NG tube, Lim catheter, restraints, and right-sided PICC line. Chest: Clear. Heart: Sounds are regular. Abdomen: Belly is soft, nontender. Good bowel sounds. Extremities: Dry. Right great toe was amputated. LAB: Stool cultures 12/17/2016 was negative. CBC: White cell count 5.4, hematocrit 30, platelets 99,000. SMA 7 is normal. BUN is 48, creatinine 0.9. ASSESSMENT AND PLAN: 1. Acute mental status due to metabolic encephalopathy, delirium. Using Geodon and Ativan as needed. 2. Pneumonia is better. Discontinue the Zosyn . 3. Thrombocytopenia, stable. 4. Nutrition. Enteral feeding with free water along with Clinimix. 5. Chronic pain. On Neurontin and hydrocodone. 6. Diarrhea. We will hold the MiraLAX. 7. Plan of care discussed with the family again this morning in the ICU. Will wake him up and take off the restraints and will follow up. There is no significant change. LEVEL OF DOCUMENTATION: 25 minute. cc: Praful Lockhart MD
[2016-12-23] MEDS: XARELTO PO SCH (09:20)
[2016-12-23] MEDS: CALMOSEPTINE OINTMENT TOP PRN (14:24)
--- NOTE | 2016-12-23 17:57 | Diag Imaging Result Doc PS360 ---
EXAM: CHEST/ABD TUBE PLACEMENT HISTORY: NG tube placement COMPARISON: 12/18/2016. FINDINGS: There is a nasogastric tube overlying the esophagus and upper stomach. The lung bases are clear. No cardiomegaly. No free air beneath the diaphragm. The bowel loops are not distended. IMPRESSION: Nasogastric tube overlies the esophagus and upper stomach. Electronically signed by Daniel Soto 12/23/2016 5:55 PM
[2016-12-23] MEDS: ELAVIL PO SCH (20:01)
[2016-12-23] MEDS: IMDUR PO SCH (20:01)
[2016-12-23] MEDS: CRESTOR PO SCH (20:01)
[2016-12-23] MEDS: NORCO-7.5 PO PRN (23:18)
[2016-12-24] MEDS: DUONEB (A & A) INH SCH ×4 (03:26→21:15)
[2016-12-24] MEDS: NEURONTIN PO SCH ×3 (03:57→17:28)
[2016-12-24 05:39] LABS: MANUAL DIFF NEEDED? NO
[2016-12-24 05:46] LABS: BASO% 0.1 % (0.0-0.8); EOS# 0.17 X1000 (0.0-0.7); EOS% 2.3 % (0.0-10.0); HEMATOCRIT 30.1 % (42.0-52.0); HEMOGLOBIN 9.6 g/dL (14.0-18.0); IMM GRAN# 0.03 X1000 (0.0-0.04); IMM GRAN% 0.4 % (0.0-0.5); LYMPH# 0.58 X1000 (1.2-3.4); MCH 28.2 PG (27-31); MCHC 31.9 g/dL (33-37); MCV 88.3 FL (81-99); MONO# 0.78 X1000 (0.11-0.59); MONO% 10.7 % (1.7-9.3); MPV 13.5 FL (7.4-10.4); NEUT% 78.5 % (42.2-75.2); PLT 100 X1000 (130-400); RBC 3.41 XMIL (4.7-6.1)
[2016-12-24 06:01] LABS: AGAP 11; BUN 46 mg/dL (8-22); CALCIUM 9.6 mg/dL (8.8-10.2); CHLORIDE 98 mmol/L (98-107); COSMO 291; POTASSIUM 4.9 mmol/L (3.5-5.1); SODIUM 134 mmol/L (136-145); TCO2 25 mmol/L (25-35)
[2016-12-24] MEDS: SODIUM CHLORIDE 0.9% INJ SCH (06:02)
[2016-12-24] MEDS: PROTONIX IV SCH (06:02)
[2016-12-24] MEDS: HUMALOG SUBQ SCH ×4 (06:04→20:33)
[2016-12-24] MEDS: XARELTO PO SCH (08:33)
[2016-12-24] MEDS: NORCO-7.5 PO PRN ×2 (08:39→14:30)
[2016-12-24] MEDS: CLINIMIX E 4.25%-5% SOLUTION 1,000 ML IV SCH ×2 (11:24→21:12)
--- NOTE | 2016-12-24 19:56 | PROGRESS NOTE ---
DATE: 12/24/2016 SUBJECTIVE: The patient is confused, agitated, no improvement in the last 24 hours. He pull the nasogastric tube. He had some external bruises with underlying poor nutrition and Xarelto. He is not making any progress. He is totally dependent at this time. REVIEW OF SYSTEMS: None reported. PHYSICAL EXAMINATION: Vital Signs: Afebrile. Vitals are stable. HEENT Examination: Within normal limits. He had an NG-tube placed. PICC line on the right side. Lim was seen. Chest: Clear. Heart: Heart sounds are regular. Belly is soft, nontender. Good bowel sounds. Extremities: No edema. Skin: Poor skin turgor, ecchymotic, contracted, right great toe was amputated. INVESTIGATIONS: CBC: White cell count 7.2, hematocrit 30, platelets 100,000. SMA 7. Sodium 134, potassium 4.9, chloride 98, BUN 46, creatinine 0.8, glucose 300. ASSESSMENT AND PLAN: 1. Delirium with a mental confusion. No improvement. Workup was negative. It looks like patient is not getting any better and continuing Ativan as needed. 2. Nutritional status. Continue on IV Clinimix and enteral feeding. Increase to 50 mL/hour with enteral feeding. 3. Pneumonia is improving. 4. Care of skin, bladder, and bowels. 5. We had a long discussion with family about advanced directives. We will get a copy of his wishes. The plan is if he does not turn around, we will transfer him to the floor with advanced directives and let the family stay with him 1 on 1 so that mental status can be improved. We will decide based on the family's preference. Continue present medical therapy. Documentation 25 minutes. cc: Praful Lockhart MD MTDD
[2016-12-24] MEDS: IMDUR PO SCH (20:33)
[2016-12-24] MEDS: CRESTOR PO SCH (20:33)
[2016-12-24] MEDS: ELAVIL PO SCH (20:33)
[2016-12-25] MEDS: NORCO-7.5 PO PRN ×3 (01:11→20:21)
[2016-12-25] MEDS: NEURONTIN PO SCH ×3 (01:12→16:45)
[2016-12-25] MEDS: DUONEB (A & A) INH SCH ×4 (03:25→22:34)
[2016-12-25] MEDS: HUMALOG SUBQ SCH ×4 (06:03→20:42)
[2016-12-25] MEDS: CLINIMIX E 4.25%-5% SOLUTION 1,000 ML IV SCH ×2 (06:03→16:46)
[2016-12-25] MEDS: SODIUM CHLORIDE 0.9% INJ SCH (06:04)
[2016-12-25] MEDS: PROTONIX IV SCH (06:04)
[2016-12-25] MEDS: LOPRESSOR IV PRN (07:57)
[2016-12-25] MEDS: XARELTO PO SCH (08:49)
--- NOTE | 2016-12-25 18:20 | PROGRESS NOTE ---
DATE: 12/25/2016 SUBJECTIVE: This patient remains combative, agitated and awake and keep on wrestling under restraints. He is noncooperative, not able to follow with verbal comments. He was given Ativan last night. REVIEW OF SYSTEMS: Unable to obtain because of the confusion. PAST MEDICAL HISTORY: Medicines were reviewed. PHYSICAL EXAMINATION: Vital signs: He is afebrile, tachycardic. Vitals are stable. HEENT: Exam within normal limits. He had an NG tube. Lim catheter. Right-sided PICC line was placed. Chest: Is clear. Heart: Sounds are regular. Abdomen: Belly is soft, nontender. Good bowel sounds. No masses palpable. No peripheral edema, cyanosis, clubbing. No obvious neurological deficits. INVESTIGATIONS: None reported today. Blood sugars running high. ASSESSMENT AND PLAN: 1. Acute mental confusion due to underlying dementia with chronic pain, delirium and psychosis. Discussed with the family. We will transfer him out of the ICU in a private room and let the family stay 1 on 1, keep the restraints to see whether it can improve the mental status or not. 2. We will administer Seroquel at bedtime. 3. Impending dehydration due to not eating. Continue on enteral feeding with NG tube. Increase the tube feedings as tolerated and decreased the Clinimix. Follow up on dietary consult. 4. DVT prophylaxis on Xarelto. DISPOSITION: We will transfer him out of the ICU in a single room. Discussed with the daughter. Also patient's daughter is going to bring the copy of advanced directives. We will place a DNR once the papers are received and we will assess his problem after this 48 hours over the weekend. Level of documentation is 25 minutes. cc: Praful Lockhart MD
[2016-12-25] MEDS: IMDUR PO SCH (20:20)
[2016-12-25] MEDS: SEROQUEL PO SCH (20:20)
[2016-12-25] MEDS: CRESTOR PO SCH (20:21)
[2016-12-25] MEDS: ELAVIL PO SCH (20:29)
[2016-12-26] MEDS: NEURONTIN PO SCH ×3 (01:08→17:44)
[2016-12-26 03:38] LABS: ALLEN TEST YES; BE -1.7 mmoll (-3.0-3.0); BLOOD TYPE ARTERIAL; DRAW SITE R RADIAL; METHB 1.2 % (0.0-1.5); O2(CT) 13.1 mL/dL (15.0-23.0); PCO2(98.6) 42 mmHg (35-45); PO2(98.6) 75 mmHg (60-100); SAMPLE BLOOD; SAO2 94.3 % (95.0-100.0); pH(98.6) 7.36 (7.35-7.45)
[2016-12-26 03:39] LABS: MODALITY NRB
[2016-12-26] MEDS: DUONEB (A & A) INH SCH ×4 (03:53→22:46)
[2016-12-26 04:01] LABS: MANUAL DIFF NEEDED? NO
[2016-12-26 04:02] LABS: BASO% 0.3 % (0.0-0.8); EOS# 0.04 X1000 (0.0-0.7); EOS% 0.7 % (0.0-10.0); HEMATOCRIT 30.1 % (42.0-52.0); HEMOGLOBIN 9.8 g/dL (14.0-18.0); IMM GRAN# 0.05 X1000 (0.0-0.04); IMM GRAN% 0.8 % (0.0-0.5); LYMPH# 0.49 X1000 (1.2-3.4); LYMPH% 8.2 % (20.5-51.1); MCH 28.6 PG (27-31); MCHC 32.6 g/dL (33-37); MCV 87.8 FL (81-99); MONO# 0.66 X1000 (0.11-0.59); MPV 13.3 FL (7.4-10.4); PLT 136 X1000 (130-400); RBC 3.43 XMIL (4.7-6.1)
[2016-12-26 04:06] LABS: CALCIUM 8.7 mg/dL (8.8-10.2); POTASSIUM 5.3 mmol/L (3.5-5.1); TOTAL BILIRUBIN 0.42 mg/dL (0.20-1.00); TOTAL PROTEIN 6.2 g/dL (6.3-8.3)
[2016-12-26] MEDS: ROCEPHIN 1 GM/NS 1 GM/50 ML IVPB IV SCH (04:12)
[2016-12-26] MEDS: CLINDAMYCIN 300 MG in NS 50 ML IV SCH ×4 (04:13→22:45)
[2016-12-26] MEDS: NS 1,000 ML IV SCH (06:30)
[2016-12-26] MEDS: HUMALOG SUBQ SCH ×4 (06:38→21:14)
[2016-12-26] MEDS: SODIUM CHLORIDE 0.9% INJ SCH (07:10)
[2016-12-26] MEDS: PROTONIX IV SCH (07:10)
--- NOTE | 2016-12-26 08:37 | Diag Imaging Result Doc PS360 ---
EXAM: CHEST-PORTABLE HISTORY: sob, decreased oxygen levels TECHNIQUE: AP portable at 0330 COMMENT: There is a PICC line on the right with its tip this para vena cava. The inspiration is markedly suboptimal. Considering the degree of inspiration and technical factors there is been no significant change since 12/18/2016. IMPRESSION: Stable chest. Electronically signed by Jimmy Love 12/26/2016 8:34 AM
[2016-12-26 08:59] LABS: ALLEN TEST YES; BLOOD TYPE ARTERIAL; DRAW SITE R RADIAL; METHB 0.6 % (0.0-1.5); O2(CT) 13.3 mL/dL (15.0-23.0); PCO2(98.6) 40 mmHg (35-45); PO2(98.6) 162 mmHg (60-100); SAMPLE BLOOD; SAO2 97.6 % (95.0-100.0); THB 9.5 g/dL (11.5-17.4); pH(98.6) 7.37 (7.35-7.45)
[2016-12-26 09:00] LABS: MODALITY NRB
[2016-12-26] MEDS: XARELTO PO SCH (10:11)
[2016-12-26] MEDS ORDERED: TYLENOL PR PRN (10:15)
[2016-12-26] MEDS: CLINIMIX E 4.25%-5% SOLUTION 1,000 ML IV SCH ×2 (10:28→23:59)
--- NOTE | 2016-12-26 12:58 | CONSULTATION ---
DATE OF CONSULTATION: 12/26/2016 REFERRING PHYSICIANS: Dr. Villalta and Dr. Lockhart. CHIEF COMPLAINT: Evaluation for respiratory failure in a patient who is status postoperative hip fracture replacement recently. HISTORY OF PRESENTING ILLNESS: A 76-year-old man who on 11/24/2016 had a left total hip arthroplasty secondary to degenerative disease, and he has past medical history of diabetes, hypertension, heart disease, hyperlipidemia, and chronic kidney disease. During his hospital stay, eventually he had respiratory distress and failure, requiring 100% oxygen. He had copious secretions and there is questionable aspiration. PAST MEDICAL HISTORY: Chronic kidney disease, hyperlipidemia, coronary artery disease, hypertension, and diabetes, type 2. PAST SURGICAL HISTORY: Arthroplasty on 11/24/2016, tonsillectomy, left orchiectomy, right great toe amputation. SOCIAL HISTORY: Ex-smoker. , living with . FAMILY HISTORY: Hypertension, Alzheimer's. REVIEW OF SYSTEMS: As detailed in history of presenting illness, otherwise noncontributory. ALLERGIES: Possibly to Levaquin. MEDICATIONS IN THE HOSPITAL: Tylenol, [place], nebulized treatment, Clinimix, Elavil, Rocephin, insulin, Protonix, Seroquel, Crestor, and Geodon. PHYSICAL EXAMINATION: General: He is lethargic, in bed. Family left the room air earlier. Vital Signs: Noted. Head and Neck: Examined. Trachea midline. Chest: Diminished entry because of poor effort, a few crackles. Cardiac: S1 and S2. Abdomen: Nontender. Limbs: No pedal edema. Neurologic: Lethargic. LABORATORIES AND INVESTIGATIONS: Chest x-ray, CBC, CMP, and ABG noted. ASSESSMENT AND PLAN: A 76-year-old man with respiratory failure, for now compensating with 100% non-rebreather with PO2 in the 140s at that level. The etiology is not so clear. It could be aspiration. It could be secondary to altered mental status. He has been on Xarelto for deep vein thrombosis prophylaxis, but will check for deep vein thrombosis serially, since he is not a candidate for CT angiogram, given the chronic kidney disease. Continue antibiotics and current management. CODE STATUS: Code status is being discussed with the family. Thank you for the courtesy of this consult. cc: MD Praful Kent MD
--- NOTE | 2016-12-26 13:37 | PROGRESS NOTE ---
DATE: 12/26/2016 SUBJECTIVE: Patient remains in the ICU. Overnight the patient had a turn for the worse with hypoxia requiring higher doses of oxygen to the point he required non-rebreather up from 2 L of oxygen. There was consideration given for aspiration and NG tube feedings had been stopped much earlier in the day but he had some residuals. Chest x-ray does not show any significant worsening but the patient has developed fever up to 101 this morning. We had placed him on Rocephin and clindamycin last night for possible aspiration pneumonia. He has become less combative and more obtunded. ABGs are satisfactory. OBJECTIVE: T-max 101 degrees, pulse 124, respirations 26-36, blood pressure 111/50, O2 saturation on rebreather 90-95%.CV: Tachycardia, regular rhythm. Lungs: Minimal crackles bilaterally not severe. Abdomen: Obtunded. Abdomen soft, active bowel sounds. No pinpoint tenderness. Extremities: Excoriations across the lower extremities noted with previous amputation right great toe noted. No necrotic areas over the toes. Neuro: The patient is not responsive. He is noncombative currently. LAB DATA: This morning show sodium 131, potassium 5.3, chloride 96, CO2 21, BUN 80, creatinine 1.5. Glucose 328. Calcium 8.7. AST 12, ALT 14, alkaline phosphatase 90. Total protein 6.2, albumin 3.0. ABG on non-rebreather at 100% is pH 7.37, pCO2 40, PO2 162, HC03 23.4. O2 saturation 97.6. White count 6, hemoglobin 9.8, platelets 136,000, neutrophils 79%, lymphocytes 8.2. Chest x-ray reveals stable chest with PICC line in place on the right with tip in the vena cava area. Inspiration is suboptimal. No change from 12/18. ASSESSMENT: 1. Suspected aspiration pneumonia with fever development and hypoxia/respiratory distress. 2. 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 3. Chronic pain. 4. Diabetes mellitus. 5. Hypertension. 6. Heart disease. 7. Hyperlipidemia. 8. Chronic renal insufficiency. PLAN: At this time he has been given some IV fluids of normal saline. Will be started back on the Clinimix. Leave off the NG feeds. Cover him with Rocephin and clindamycin. Will check blood cultures with orders x2. Continue nebulizer treatments. Will consult Pulmonology for assistance. Family contemplating DNR status but at this time he is full code. cc: MD Praful Harris MD
[2016-12-26] MEDS: HALDOL IV PRN (17:44)
[2016-12-26] MEDS: CRESTOR PO SCH (21:13)
[2016-12-26] MEDS: SEROQUEL PO SCH (21:13)
[2016-12-26] MEDS: IMDUR PO SCH (21:13)
[2016-12-26] MEDS: ELAVIL PO SCH (21:13)
[2016-12-27] MEDS: ROCEPHIN 1 GM/NS 1 GM/50 ML IVPB IV SCH (03:02)
[2016-12-27] MEDS: NEURONTIN PO SCH ×3 (03:02→17:11)
[2016-12-27] MEDS: DUONEB (A & A) INH SCH ×4 (03:53→21:23)
[2016-12-27 04:36] LABS: ALLEN TEST YES; BE -2.8 mmoll (-3.0-3.0); BLOOD TYPE ARTERIAL; DRAW SITE R RADIAL; O2(CT) 11.5 mL/dL (15.0-23.0); PCO2(98.6) 41 mmHg (35-45); PO2(98.6) 105 mmHg (60-100); SAMPLE BLOOD; SAO2 97.2 % (95.0-100.0); THB 8.3 g/dL (11.5-17.4); pH(98.6) 7.35 (7.35-7.45)
[2016-12-27 04:37] LABS: MODALITY VENTIMASK
[2016-12-27] MEDS: CLINDAMYCIN 300 MG in NS 50 ML IV SCH ×4 (04:59→20:36)
[2016-12-27 05:22] LABS: MANUAL DIFF NEEDED? NO
[2016-12-27 05:40] LABS: BASO% 0.3 % (0.0-0.8); EOS# 0.03 X1000 (0.0-0.7); EOS% 0.9 % (0.0-10.0); HEMATOCRIT 25.4 % (42.0-52.0); HEMOGLOBIN 7.9 g/dL (14.0-18.0); LYMPH# 0.33 X1000 (1.2-3.4); LYMPH% 9.9 % (20.5-51.1); MCH 27.7 PG (27-31); MCHC 31.1 g/dL (33-37); MCV 89.1 FL (81-99); MONO# 0.41 X1000 (0.11-0.59); MONO% 12.3 % (1.7-9.3); MPV 13.4 FL (7.4-10.4); NEUT% 76.6 % (42.2-75.2); PLT 112 X1000 (130-400); RBC 2.85 XMIL (4.7-6.1)
[2016-12-27] MEDS: SODIUM CHLORIDE 0.9% INJ SCH (06:21)
[2016-12-27] MEDS: PROTONIX IV SCH (06:21)
[2016-12-27] MEDS: CLINIMIX E 4.25%-5% SOLUTION 1,000 ML IV SCH ×2 (06:22→12:49)
[2016-12-27 06:53] LABS: ALBUMIN 2.6 g/dL (3.5-5.0); CALCIUM 8.6 mg/dL (8.8-10.2); POTASSIUM 4.6 mmol/L (3.5-5.1); TOTAL BILIRUBIN 0.24 mg/dL (0.20-1.00); TOTAL PROTEIN 5.4 g/dL (6.3-8.3)
[2016-12-27] MEDS: HUMALOG SUBQ SCH ×4 (07:26→20:38)
[2016-12-27] MEDS: NS 1,000 ML IV SCH ×4 (07:26→15:15)
--- NOTE | 2016-12-27 07:52 | Diag Imaging Result Doc PS360 ---
EXAM: CHEST-PORTABLE HISTORY: Resp. Distress TECHNIQUE: AP portable at 0500 COMMENT: The inspiration is less optimal than on 12/26/2016. There is atelectasis in the right middle lobe and lower lobe. The PICC line on the right remains. There is an NG tube which appears to pass below the diaphragm although the distal portion is not well seen. IMPRESSION: Poor inspiration and right basilar atelectasis. Electronically signed by Jimmy Love 12/27/2016 7:50 AM
[2016-12-27] MEDS: XARELTO PO SCH (08:51)
[2016-12-27] MEDS: LOPRESSOR IV PRN ×2 (11:25→22:16)
[2016-12-27] MEDS: TYLENOL PO PRN (13:08)
--- NOTE | 2016-12-27 16:13 | PROGRESS NOTE ---
DATE: 12/27/2016 SUBJECTIVE: Patient remains in ICU. He is more alert today than yesterday. Not combative but moves about quite a bit. OBJECTIVE: T max 99.8, pulse 113, respirations 22, blood pressure 137/63, O2 saturation on 35% Ventimask. 95-96%. Chest x-ray today shows poor inspiration, right basilar atelectasis versus infiltrate. LABS: White count 3.34 hemoglobin 7.9, platelets 112,000, neutrophils 76, lymphocytes 9.9. Sodium 137, potassium 4.6, chloride 100, CO2 20, BUN 84, creatinine 1.3. ASSESSMENT: 1. Possible right lung aspiration pneumonia versus atelectasis. 2. Dementia with psychosis. 3. Chronic pain syndrome. 4. Diabetes mellitus. 5. Hypertension. 6. Heart disease. 7. Hyperlipidemia. 8. Chronic renal insufficiency. PLAN: Continue Clinimix. Continue IV antibiotics in the form of Rocephin and clindamycin. Blood cultures x2 negative at this point. Continue nebulizer treatments in the form of albuterol Atrovent. Haldol as needed for combativeness and agitation. Follow labs. Continue supportive measures in the ICU. Appreciate Dr. Coburn's help in the case. cc: MD Praful Harris MD
[2016-12-27] MEDS: ELAVIL PO SCH (20:36)
[2016-12-27] MEDS: SEROQUEL PO SCH (20:36)
[2016-12-27] MEDS: IMDUR PO SCH (20:36)
[2016-12-27] MEDS: CRESTOR PO SCH (20:37)
[2016-12-27] MEDS: HALDOL IV PRN (21:39)
[2016-12-28] MEDS: CLINIMIX E 4.25%-5% SOLUTION 1,000 ML IV SCH ×2 (00:44→11:00)
[2016-12-28] MEDS: NEURONTIN PO SCH ×3 (00:44→16:59)
[2016-12-28] MEDS: NS 1,000 ML IV SCH ×2 (00:44→08:26)
[2016-12-28] MEDS: CLINDAMYCIN 300 MG in NS 50 ML IV SCH ×4 (02:39→21:53)
[2016-12-28] MEDS: DUONEB (A & A) INH SCH ×4 (03:25→21:15)
[2016-12-28] MEDS: ROCEPHIN 1 GM/NS 1 GM/50 ML IVPB IV SCH (04:06)
[2016-12-28 04:45] LABS: BASO% 0.2 % (0.0-0.8); EOS# 0.07 X1000 (0.0-0.7); EOS% 1.6 % (0.0-10.0); HEMATOCRIT 24.5 % (42.0-52.0); HEMOGLOBIN 7.8 g/dL (14.0-18.0); IMM GRAN# 0.02 X1000 (0.0-0.04); IMM GRAN% 0.5 % (0.0-0.5); LYMPH% 6.8 % (20.5-51.1); MANUAL DIFF NEEDED? NO; MCH 28.3 PG (27-31); MCHC 31.8 g/dL (33-37); MCV 88.8 FL (81-99); MONO# 0.48 X1000 (0.11-0.59); MONO% 10.9 % (1.7-9.3); MPV 13.2 FL (7.4-10.4); PLT 132 X1000 (130-400); RBC 2.76 XMIL (4.7-6.1)
[2016-12-28 05:06] LABS: AGAP 14; ALBUMIN 2.6 g/dL (3.5-5.0); ALKALINE PHOSPHATASE 76 U/L (32-122); BUN 58 mg/dL (8-22); CALCIUM 8.4 mg/dL (8.8-10.2); CHLORIDE 107 mmol/L (98-107); COSMO 306; GOT 78 U/L (10-34); GPT 60 U/L (10-44); POTASSIUM 4.2 mmol/L (3.5-5.1); SODIUM 143 mmol/L (136-145); TCO2 22 mmol/L (25-35); TOTAL BILIRUBIN 0.29 mg/dL (0.20-1.00); TOTAL PROTEIN 5.4 g/dL (6.3-8.3)
[2016-12-28] MEDS: SODIUM CHLORIDE 0.9% INJ SCH (06:05)
[2016-12-28] MEDS: PROTONIX IV SCH (06:05)
[2016-12-28] MEDS: HUMALOG SUBQ SCH ×4 (06:05→20:05)
--- NOTE | 2016-12-28 07:31 | Diag Imaging Result Doc PS360 ---
EXAM: CHEST-PORTABLE HISTORY: dyspnea TECHNIQUE: Portable COMPARISON: 12/27/2016. FINDINGS: There is a right-sided PICC line. A nasogastric tube overlies the esophagus. I do not see the distal portion due to the technique. Heart is not enlarged. Vessels are not distended. No pleural effusions identified. No consolidation. IMPRESSION: Stable chest. Electronically signed by Daniel Soto 12/28/2016 7:29 AM
[2016-12-28] MEDS: XARELTO PO SCH (08:27)
--- NOTE | 2016-12-28 09:07 | PROGRESS NOTE ---
DATE: 12/28/2016 SUBJECTIVE: Interval history over 48 hours was reviewed. Apparently, patient went to respiratory distress with aspiration bronchitis. Patient was seen by Dr. Almas MD. He had a lot of secretions suctioned out. Tube feeds are on hold. Patient was started on Rocephin and clindamycin. He was given oxygen, bronchodilators. Chest x-ray was stable. Patient is awake, rambling, and not making any sense. He is still under restraints. PAST MEDICAL HISTORY: Medicines are reviewed. PHYSICAL EXAMINATION: Vital signs: She is afebrile. Blood pressure is running high, tachycardic. And more awake, confused, psychotic. NG tube was placed. PICC line seen. Lim catheter was placed. Chest has no rhonchi. Heart sounds are tachycardic. Belly is soft, nontender. Good bowel sounds. No obvious neurological deficits. INVESTIGATIONS: CBC: White cell count 4.3, hematocrit 24, platelets 132,000. ABG has a pH is 7.35, pCO2 40, PO2 105, SMA 7 sodium 143, potassium 4.2, chloride 107, BUN 58, creatinine 1.0, LFTs were high. Chest x-ray, stable chest. ASSESSMENT AND PLAN: 1. Altered mental status due to intensive care unit psychosis. Haldol as needed and Seroquel under restraints. 2. Azotemia. Tube feeds on hold on IV Clinimix and continue the free water elevation of the head of the bed. 3. Aspiration bronchitis. Chest x-ray stable on Rocephin and clindamycin. 4. Chronic pain on nortriptyline and [place]ile [place] next. 5. Deep venous thrombosis prophylaxis on Xarelto. 6. Anemia due to chronic disease. Transfuse a unit of blood. 7. Physical therapy evaluation. Discussed with the daughter. Hopefully will be transferred to the ICU. DISCHARGE TIME: 35 minutes. cc: Praful Lockhart MD
[2016-12-28] MEDS: LOPRESSOR IV PRN (09:14)
[2016-12-28] MEDS: CARDIZEM 100 MG/NS 100 MG/100 ML IVPB IV SCH ×2 (10:45→16:04)
[2016-12-28] MEDS: HALDOL IV PRN ×2 (11:08→18:13)
[2016-12-28] MEDS: SEROQUEL PO SCH (20:02)
[2016-12-28] MEDS: CRESTOR PO SCH (20:02)
[2016-12-28] MEDS: IMDUR PO SCH (20:02)
[2016-12-28] MEDS: ELAVIL PO SCH (20:02)
[2016-12-29] MEDS: NS 1,000 ML IV SCH ×3 (00:56→21:47)
[2016-12-29] MEDS: CARDIZEM 100 MG/NS 100 MG/100 ML IVPB IV SCH (00:56)
[2016-12-29] MEDS: NEURONTIN PO SCH ×3 (02:47→16:58)
[2016-12-29] MEDS: ROCEPHIN 1 GM/NS 1 GM/50 ML IVPB IV SCH (03:19)
[2016-12-29] MEDS: CLINDAMYCIN 300 MG in NS 50 ML IV SCH ×4 (03:20→21:36)
[2016-12-29] MEDS: DUONEB (A & A) INH SCH ×4 (03:50→23:20)
[2016-12-29 04:35] LABS: MANUAL DIFF NEEDED? NO
[2016-12-29 04:37] LABS: EOS# 0.08 X1000 (0.0-0.7); EOS% 2.2 % (0.0-10.0); HEMATOCRIT 28.4 % (42.0-52.0); HEMOGLOBIN 8.8 g/dL (14.0-18.0); IMM GRAN# 0.03 X1000 (0.0-0.04); IMM GRAN% 0.8 % (0.0-0.5); LYMPH# 0.38 X1000 (1.2-3.4); LYMPH% 10.5 % (20.5-51.1); MCH 26.8 PG (27-31); MCV 86.6 FL (81-99); MONO# 0.32 X1000 (0.11-0.59); MONO% 8.8 % (1.7-9.3); MPV 12.9 FL (7.4-10.4); NEUT% 77.7 % (42.2-75.2); PLT 130 X1000 (130-400); RBC 3.28 XMIL (4.7-6.1)
[2016-12-29 04:55] LABS: AGAP 13; BUN 33 mg/dL (8-22); CALCIUM 8.6 mg/dL (8.8-10.2); CHLORIDE 107 mmol/L (98-107); COSMO 295; POTASSIUM 3.9 mmol/L (3.5-5.1); SODIUM 141 mmol/L (136-145); TCO2 21 mmol/L (25-35)
--- NOTE | 2016-12-29 05:20 | EKG Report ---
Test Performed on : 12/28/2016 10:23:58 AM Test Reason : Blood Pressure : / mmHG Vent. Rate : 123 BPM Atrial Rate : 115 BPM P-R Int : 000 ms QRS Dur : 088 ms QT Int : 272 ms P-R-T Axes : 000 036 075 degrees QTc Int : 389 ms Atrial fibrillation. with rapid ventricular response. Abnormal ECG No previous ECGs available Confirmed by Chas Naranjo MD ([id number]) on 12/30/2016 7:14:23 AM
[2016-12-29] MEDS: PROTONIX IV SCH (06:07)
[2016-12-29] MEDS: HUMALOG SUBQ SCH ×4 (06:08→20:21)
[2016-12-29] MEDS: SODIUM CHLORIDE 0.9% INJ SCH (06:08)
[2016-12-29] MEDS: LOPRESSOR IV PRN (08:33)
[2016-12-29] MEDS: XARELTO PO SCH (08:33)
[2016-12-29] MEDS: CLINIMIX E 4.25%-5% SOLUTION 1,000 ML IV SCH (08:33)
--- NOTE | 2016-12-29 13:40 | Extremity Venous Study ---
PROCEDURE NAME: Venous U/S Bilateral Legs - 12/26/2016 Bilateral lower extremity venous duplex and color flow imaging study using the [employer] vivid E 9 ultrasound system with a 9 L-D transducer. REFERRING PHYSICIAN: Dr. Kalia Coburn. IDENTIFYING DATA: A 76-year-old male. PEDAL ASSEMBLER: Yvette Castellanos RVT. INDICATIONS: 1. Swelling of the limb, M79.89. 2. Shortness of breath, R06.02. FINDINGS: Right common femoral vein and its branches, deep and superficial femoral veins were satisfactorily imaged. They had flow through them and were compressible. Right popliteal vein and the deep veins below the right knee were all compressible and had flow through them. The superficial veins of the right lower extremity were compressible throughout their length. The left common femoral vein and its branches, deep and superficial femoral veins were also satisfactorily imaged. They had flow through them and were compressible. Left popliteal vein and the deep veins below the left knee were all compressible and had flow through them. The superficial veins of the left lower extremity were compressible throughout their length. INTERPRETATION: No evidence of acute deep or superficial venous thrombosis of the bilateral lower extremities. cc: MD Kalia Robles MD Jagan Reddy, MD
[2016-12-29] MEDS: SEROQUEL PO SCH (20:15)
[2016-12-29] MEDS: ELAVIL PO SCH (20:15)
[2016-12-29] MEDS: IMDUR PO SCH (20:15)
[2016-12-29] MEDS: CRESTOR PO SCH (20:15)
[2016-12-29] MEDS: CYANOCOBALAMIN IM SCH (21:46)
--- NOTE | 2016-12-30 02:10 | PROGRESS NOTE ---
DATE: 12/29/2016 SUBJECTIVE: Interval history was reviewed for the last 24 hours. 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 The nurses called me. 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 He did convert into sinus rhythm. Cardizem drip was down to 2.5 mg per hour. He did receive a unit of blood. He is more alert and rambling. Still in restraints. REVIEW OF SYSTEMS: Not able to comprehend other than trying to get out of the bed. PAST MEDICAL HISTORY: Medications were reviewed. OBJECTIVE: Vital signs: He is afebrile. Pulse is 97. Blood pressure is 170/90. On 3 L of nasal cannula, 95%. I's and O's positive for 3.5 L. HEENT: Exam within normal limits. NG tube was out. Neck: Supple. Chest: Clear. Cardiac: Heart sounds are regular. Abdomen: Belly is soft, nontender. Good bowel sounds. Neurologic: Restrained. Able to move all the extremities. He has a PICC line on the right side. Lim catheter was in place. INVESTIGATIONS: EKG: Atrial fibrillation. Chest x-ray: Stable chest. LABORATORY DATA: On 12/29/2016, CBC with white cell count 3.6, hematocrit 38, platelets 130. SMA- 7: Sodium 140, potassium 3.9, chloride 101, BUN 33, creatinine 0.8, glucose 267. ASSESSMENT AND PLAN: 1. Altered mental status due to psychosis. Continue on Seroquel and tramadol as needed. 2. Dehydration, improving. Cut down the IV fluids to 50 mL per hour along with Clinimix 50 mL per hour. 3. Paroxysmal atrial fibrillation, currently in sinus. Discontinue and wean off the Cardizem drip. Use metoprolol as needed. 4. Swallowing study passed. Continue mechanical soft diet and see how he does today. 5. Advanced directives. He will be DNR if he is unconscious for more than 14 days. At this time, he is a full code. 6. Anemia due to chronic disease, status post 2 units of packed RBCs. 7. Will transfer him out of the ICU when a bed is available in [facility]. 8. Aspiration bronchitis. Continue on Rocephin and clindamycin at this time. 9. Increase activity out of bed when he is more docile and calm. TIME: Discussed with the patient's daughter, level of documentation due to new onset of problems, advanced directives, more than 35 minutes. cc: Praful Lockhart MD
[2016-12-30] MEDS: CLINDAMYCIN 300 MG in NS 50 ML IV SCH ×4 (02:38→21:31)
[2016-12-30] MEDS: NEURONTIN PO SCH ×3 (02:38→18:28)
[2016-12-30] MEDS: ROCEPHIN 1 GM/NS 1 GM/50 ML IVPB IV SCH (02:38)
[2016-12-30] MEDS: DUONEB (A & A) INH SCH ×4 (03:28→22:21)
[2016-12-30] MEDS: NORCO-5 PO PRN ×3 (03:46→23:32)
[2016-12-30 05:35] LABS: MANUAL DIFF NEEDED? NO
[2016-12-30 05:40] LABS: BASO% 0.3 % (0.0-0.8); EOS# 0.05 X1000 (0.0-0.7); EOS% 1.3 % (0.0-10.0); HEMATOCRIT 27.6 % (42.0-52.0); HEMOGLOBIN 8.5 g/dL (14.0-18.0); IMM GRAN# 0.07 X1000 (0.0-0.04); IMM GRAN% 1.8 % (0.0-0.5); LYMPH# 0.47 X1000 (1.2-3.4); LYMPH% 11.8 % (20.5-51.1); MCH 26.6 PG (27-31); MCHC 30.8 g/dL (33-37); MCV 86.5 FL (81-99); MONO# 0.51 X1000 (0.11-0.59); MONO% 12.8 % (1.7-9.3); MPV 12.2 FL (7.4-10.4); PLT 147 X1000 (130-400); RBC 3.19 XMIL (4.7-6.1)
[2016-12-30 06:06] LABS: AGAP 14; BUN 20 mg/dL (8-22); CALCIUM 7.9 mg/dL (8.8-10.2); CHLORIDE 108 mmol/L (98-107); COSMO 293; POTASSIUM 3.6 mmol/L (3.5-5.1); SODIUM 144 mmol/L (136-145); TCO2 22 mmol/L (25-35)
[2016-12-30] MEDS: HUMALOG SUBQ SCH ×4 (06:33→21:30)
[2016-12-30] MEDS: PROTONIX IV SCH (06:34)
[2016-12-30] MEDS: SODIUM CHLORIDE 0.9% INJ SCH (06:34)
[2016-12-30] MEDS: CLINIMIX E 4.25%-5% SOLUTION 1,000 ML IV SCH (06:37)
[2016-12-30] MEDS: XARELTO PO SCH (10:11)
[2016-12-30] MEDS: CYANOCOBALAMIN IM SCH (10:12)
[2016-12-30] MEDS: NS 1,000 ML IV SCH (10:49)
[2016-12-30] MEDS: LOPRESSOR IV PRN (12:33)
--- NOTE | 2016-12-30 19:22 | PROGRESS NOTE ---
DATE: 12/30/2016 SUBJECTIVE: Patient was transferred out of the ICU in a step-down unit. He was doing good according to the daughter until affect. Extremely restless and agitated. The patient is sleepy this morning. REVIEW OF SYSTEMS: None reported other than confusion. OBJECTIVE: Vital Signs: On exam, blood pressure is running high. Vitals are stable. HEENT: Within normal limits. Skin: NG tube is out. PICC line on the right side and Lim was placed. Chest: Clear. Heart: Sounds are regular. Abdomen: Belly is soft, nontender. Good bowel sounds. INVESTIGATIONS: CBC: White cell count 3.9, hematocrit 27, platelets 147. SMA-7: Sodium 144, potassium 3.6, chloride 108, BUN 20, creatinine 0.7, glucose 191. ASSESSMENT AND PLAN: 1. Altered mental status, psychosis. Continue on Seroquel and Haldol. 2. Discontinue Lim. 3. Possible aspiration bronchitis. Continue on clindamycin and Rocephin. 4. Dehydration, better on Clinimix and decreased IV fluids 50 mL/hour. Plan of care today discussed with the patient. Daughter at the bedside. We will watch him closely. Keep him out of the restraints and out of the bed with physical therapy and hopefully will be discharged on Wednesday and follow up. LEVEL OF DOCUMENTATION: 25 minutes. cc: Praful Lockhart MD
[2016-12-30] MEDS: SEROQUEL PO SCH (20:35)
[2016-12-30] MEDS: ELAVIL PO SCH (21:30)
[2016-12-30] MEDS: CRESTOR PO SCH (21:30)
[2016-12-30] MEDS: IMDUR PO SCH (21:50)
[2016-12-30] MEDS: HALDOL IV PRN (23:22)
[2016-12-31] MEDS: CLINDAMYCIN 300 MG in NS 50 ML IV SCH (02:50)
[2016-12-31] MEDS: ROCEPHIN 1 GM/NS 1 GM/50 ML IVPB IV SCH (02:50)
[2016-12-31] MEDS: NEURONTIN PO SCH ×3 (02:50→18:31)
[2016-12-31] MEDS: NS 1,000 ML IV SCH (02:58)
[2016-12-31] MEDS: DUONEB (A & A) INH SCH ×4 (03:59→23:08)
[2016-12-31 05:08] LABS: MANUAL DIFF NEEDED? NO
[2016-12-31 05:26] LABS: BASO% 0.2 % (0.0-0.8); EOS# 0.15 X1000 (0.0-0.7); EOS% 2.9 % (0.0-10.0); HEMATOCRIT 28.3 % (42.0-52.0); HEMOGLOBIN 8.8 g/dL (14.0-18.0); IMM GRAN# 0.08 X1000 (0.0-0.04); IMM GRAN% 1.6 % (0.0-0.5); LYMPH# 0.63 X1000 (1.2-3.4); LYMPH% 12.3 % (20.5-51.1); MCH 27.2 PG (27-31); MCHC 31.1 g/dL (33-37); MCV 87.3 FL (81-99); MONO# 0.49 X1000 (0.11-0.59); MONO% 9.6 % (1.7-9.3); MPV 11.8 FL (7.4-10.4); NEUT% 73.4 % (42.2-75.2); PLT 162 X1000 (130-400); RBC 3.24 XMIL (4.7-6.1)
[2016-12-31 05:43] LABS: AGAP 14; BUN 20 mg/dL (8-22); CALCIUM 8.5 mg/dL (8.8-10.2); CHLORIDE 106 mmol/L (98-107); COSMO 290; POTASSIUM 3.8 mmol/L (3.5-5.1); SODIUM 143 mmol/L (136-145); TCO2 23 mmol/L (25-35)
[2016-12-31] MEDS: HUMALOG SUBQ SCH ×4 (06:05→21:27)
[2016-12-31] MEDS: PROTONIX IV SCH (06:35)
[2016-12-31] MEDS: SODIUM CHLORIDE 0.9% INJ SCH (06:35)
[2016-12-31] MEDS: CYANOCOBALAMIN IM SCH (09:28)
[2016-12-31] MEDS: XARELTO PO SCH (09:28)
[2016-12-31] MEDS: NORCO-5 PO PRN ×2 (11:25→21:29)
[2016-12-31] MEDS: TYLENOL PO PRN (15:38)
[2016-12-31] MEDS: CRESTOR PO SCH (21:28)
[2016-12-31] MEDS: IMDUR PO SCH (21:28)
[2016-12-31] MEDS: ELAVIL PO SCH (21:28)
[2016-12-31] MEDS: SEROQUEL PO SCH (21:30)
--- NOTE | 2016-12-31 22:14 | PROGRESS NOTE ---
DATE: 12/31/2016 SUBJECTIVE: Patient rested well last night. Actually, he is much more interactive and is extremely feeble. Nasogastric tube, right-sided PICC line was removed. Still has a Lim catheter. The daughter was there at the bedside. He is interacting more appropriately with the family. REVIEW OF SYSTEMS: He wants to go home. PHYSICAL EXAMINATION: Vital signs: Afebrile. Vitals are stable on 3 L nasal cannula. Input and output are negative at 940. HEENT: Within normal limits. Neck: Supple. No lymphadenopathy. No goiter. Chest: Clear. Heart: Sounds are regular. Abdomen: Belly is soft, nontender. Good bowel sounds. Neurologic: Nonfocal. INVESTIGATIONS: White cell count 5.1, hematocrit 28, platelets 162,000. SMA7: Sodium 143, potassium 3.8, chloride 106, BUN 20, creatinine 0.6, glucose 149, calcium 8.9. ASSESSMENT AND PLAN: 1. Altered mental status, slowly improving. Not expressing any pain. I think it is probably psychosis. Plan is increase the Seroquel 50 mg at bedtime. 2. Azotemia, improving. Tolerating mechanical soft diet. Discontinue total parenteral nutrition as well as intravenous fluids. 3. Aspiration pneumonia is better. Discontinue clindamycin. Currently on intravenous ceftriaxone. 4. Paroxysmal atrial fibrillation, currently in sinus. 5. Gastrointestinal prophylaxis with intravenous Protonix. 6. Deep venous thrombosis prophylaxis with Xarelto. 7. Chronic pain. On [place] and amitriptyline. PLAN: Plan of care next 24 hours discussed with the daughter. We will remove the restraints. Discontinue intravenous clindamycin. Discontinue intravenous fluids. Keep him out of the bed with physical therapy. Discussed about possible home on Wednesday if he gets more strength. Otherwise, will be after the holidays. We will follow up. LEVEL OF DICTATION: 25 minutes. cc: Praful Lockhart MD
[2016-12-31] MEDS: HALDOL IV PRN (22:30)
[2017-01-01] MEDS: NEURONTIN PO SCH ×4 (03:14→18:13)
[2017-01-01] MEDS: NORCO-5 PO PRN ×2 (03:15→17:51)
[2017-01-01] MEDS: ROCEPHIN 1 GM/NS 1 GM/50 ML IVPB IV SCH (03:15)
[2017-01-01] MEDS: DUONEB (A & A) INH SCH ×4 (03:50→21:30)
[2017-01-01] MEDS: PROTONIX IV SCH (06:15)
[2017-01-01] MEDS: SODIUM CHLORIDE 0.9% INJ SCH (06:15)
[2017-01-01] MEDS: HUMALOG SUBQ SCH ×6 (06:22→20:08)
[2017-01-01] MEDS: XARELTO PO SCH (08:59)
[2017-01-01] MEDS: CYANOCOBALAMIN IM SCH (08:59)
[2017-01-01] MEDS: ZOFRAN IV PRN (11:15)
--- NOTE | 2017-01-01 19:06 | PROGRESS NOTE ---
DATE: 01/01/2017 SUBJECTIVE: Patient is more alert. He is oriented to person. He is talking better. He recognizes me. Family was not there. He was sitting down out of the bed for 2 hours. He is still weak, not able to ambulate. He has been eating okay. Lim catheter was out. REVIEW OF SYSTEMS: No pain. PHYSICAL EXAMINATION: Vital Signs: Afebrile. Blood pressure is 120/57, pulse is 107. Nasal oxygen on 3 L at 91%. HEENT Exam: Within normal limits. Neck: Supple. Chest: Clear. Heart: Sounds are regular. Abdomen: Belly is soft, nontender. Good bowel sounds. Extremities: Dry. Skin: No skin rashes on the sacral area noted. INVESTIGATIONS: None reported. ASSESSMENT AND PLAN: 1. Deconditioning. Needs aggressive physical therapy. Out of the bed. 2. Delirium with ICU psychosis. Continue on Seroquel and Haldol. 3. Status post left hip fracture repaired. Continue on Xarelto. 4. Hypertension. 5. Paroxysmal atrial fibrillation. Stable in sinus. Metoprolol as needed. 6. Hyperlipidemia on Crestor. 7. History of aspiration bronchitis. Discontinue clindamycin. DISPOSITION: Will increase the activity over the weekend and discuss with the family about going for rehab versus outpatient with home health care. LEVEL OF DOCUMENTATION: 25 minutes. cc: Praful Lockhart MD
[2017-01-01] MEDS: CRESTOR PO SCH (20:08)
[2017-01-01] MEDS: IMDUR PO SCH (20:08)
[2017-01-01] MEDS: TYLENOL PO PRN (20:08)
[2017-01-01] MEDS: ELAVIL PO SCH (20:08)
[2017-01-01] MEDS: SEROQUEL PO SCH (21:12)
[2017-01-02] MEDS: DUONEB (A & A) INH SCH ×4 (03:25→21:53)
[2017-01-02] MEDS: ROCEPHIN 1 GM/NS 1 GM/50 ML IVPB IV SCH (03:52)
[2017-01-02] MEDS: NEURONTIN PO SCH ×4 (03:53→18:00)
[2017-01-02] MEDS: PROTONIX IV SCH (06:56)
[2017-01-02] MEDS: HUMALOG SUBQ SCH ×4 (06:56→20:23)
[2017-01-02] MEDS: CYANOCOBALAMIN IM SCH (08:42)
[2017-01-02] MEDS: XARELTO PO SCH (08:42)
--- NOTE | 2017-01-02 09:35 | PROGRESS NOTE ---
DATE: 01/02/2017 SUBJECTIVE: The patient says he is feeling a little bit better, but he seems to have a phobia about getting up and walking. He says he has never had this before, he does not understand it, but he is afraid he is going to fall with his hip. Physical therapy is working with him and hopefully will desensitize him psychologically some, as well as condition him physically. OBJECTIVE: Vital Signs: Blood pressure is 160/78, respirations 18, temperature is 99.4 degrees Fahrenheit, pulse 88 and regular. HEENT: He is normocephalic. EOMS intact. PERRLA. Throat clear. Lungs: Clear to auscultation and percussion without rhonchi, rales, or wheezes. Heart: Regular rate and rhythm without murmurs, gallops, or friction rubs. Abdomen: Soft. Active bowel sounds without organomegaly or tenderness. Neurological: Exam intact grossly. He had come in with altered mental status to a certain extent and that seems to have improved. He has had an anemia with a hemoglobin of 8.8; it is of unclear nature. He did come in hypoxic initially and deconditioned and has AODM. ASSESSMENT: 1. Altered mental status. 2. Hypoxia. 3. Status post left hip repair. 4. Adult-onset diabetes mellitus. 5. Anemia. PLAN: Continue to work with his deconditioning. cc: MD Praful Lewis Jr, MD
[2017-01-02] MEDS: CRESTOR PO SCH (20:20)
[2017-01-02] MEDS: IMDUR PO SCH (20:20)
[2017-01-02] MEDS: ELAVIL PO SCH (20:20)
[2017-01-02] MEDS: SEROQUEL PO SCH (20:25)
[2017-01-03] MEDS: NEURONTIN PO SCH ×3 (03:12→18:01)
[2017-01-03] MEDS: ROCEPHIN 1 GM/NS 1 GM/50 ML IVPB IV SCH (03:12)
[2017-01-03] MEDS: DUONEB (A & A) INH SCH ×2 (03:12→22:00)
[2017-01-03] MEDS: HUMALOG SUBQ SCH ×4 (06:31→20:31)
[2017-01-03] MEDS: PROTONIX IV SCH (06:32)
[2017-01-03] MEDS: XARELTO PO SCH (08:55)
--- NOTE | 2017-01-03 09:55 | PROGRESS NOTE ---
DATE: 01/03/2017 SUBJECTIVE: Patient says he is feeling a little bit better. He did get up walk around his bed a little bit yesterday. He is sitting up in a chair. OBJECTIVE: Vital Signs: Blood pressure is 144/64, respirations 18, pulse 74, temperature 96.9 degrees Fahrenheit. HEENT: He is normocephalic. EOMs intact. PERRLA. Throat clear. Lungs: Clear to auscultation and percussion without rhonchi, rales, or wheezes. Heart: Regular rate and rhythm without murmurs, gallops, or friction rubs. Abdomen: Soft. Active bowel sounds. No organomegaly or tenderness. Neurological Examination: Cranial nerves 2-12 intact grossly. Sensory and motor intact. ASSESSMENT: 1. Altered mental status with hypoxia on arrival. This is doing better. Does seem to have a little bit of a phobia about falling. 2. Status post left hip repair. 3. Adult onset diabetes mellitus. 4. Anemia. Has not had any lab work checked in the last several days. PLAN: We will check CBC and chemistry profile. Continue to work with building his strength. cc: MD Praful Lewis Jr, MD
[2017-01-03] MEDS: NORCO-5 PO PRN (13:49)
[2017-01-03] MEDS: TYLENOL PO PRN (16:26)
[2017-01-03] MEDS: SEROQUEL PO SCH (20:29)
[2017-01-03] MEDS: CRESTOR PO SCH (20:30)
[2017-01-03] MEDS: ELAVIL PO SCH (20:30)
[2017-01-03] MEDS: IMDUR PO SCH (20:30)
[2017-01-04] MEDS: NEURONTIN PO SCH ×3 (03:18→18:09)
[2017-01-04] MEDS: ROCEPHIN 1 GM/NS 1 GM/50 ML IVPB IV SCH (03:19)
[2017-01-04] MEDS: DUONEB (A & A) INH SCH ×5 (04:00→23:02)
[2017-01-04 04:58] LABS: MANUAL DIFF NEEDED? NO
[2017-01-04 04:59] LABS: EOS# 0.06 X1000 (0.0-0.7); HEMATOCRIT 30.5 % (42.0-52.0); HEMOGLOBIN 9.6 g/dL (14.0-18.0); IMM GRAN# 0.02 X1000 (0.0-0.04); IMM GRAN% 0.3 % (0.0-0.5); LYMPH# 0.55 X1000 (1.2-3.4); LYMPH% 8.9 % (20.5-51.1); MCH 27.4 PG (27-31); MCHC 31.5 g/dL (33-37); MCV 86.9 FL (81-99); MONO# 0.35 X1000 (0.11-0.59); MONO% 5.7 % (1.7-9.3); MPV 11.3 FL (7.4-10.4); NEUT% 84.1 % (42.2-75.2); PLT 143 X1000 (130-400); RBC 3.51 XMIL (4.7-6.1)
[2017-01-04 05:20] LABS: AGAP 13; BUN 16 mg/dL (8-22); CALCIUM 8.2 mg/dL (8.8-10.2); CHLORIDE 104 mmol/L (98-107); COSMO 291; POTASSIUM 3.1 mmol/L (3.5-5.1); SODIUM 142 mmol/L (136-145); TCO2 25 mmol/L (25-35)
[2017-01-04] MEDS: PROTONIX IV SCH (06:46)
[2017-01-04] MEDS: HUMALOG SUBQ SCH ×4 (06:46→21:39)
[2017-01-04] MEDS: XARELTO PO SCH (08:52)
--- NOTE | 2017-01-04 13:22 | PROGRESS NOTE ---
DATE: 01/04/2017 SUBJECTIVE: Patient doing better overall, is trying to regain his strength. OBJECTIVE: Afebrile. Pulse 87, respiration 22-32, blood pressure 124/57, O2 saturation 94% on 2 L.CV: RRR. Lungs: Minimally coarse breath sounds. Extremities: Some bruising over the extremities diffusely. No significant edema. LABORATORY STUDIES: Show sodium of 142, potassium 3.1, chloride 104, CO2 25, BUN 16, creatinine 1.0. Blood sugar in the 200-413 range. White count 6.19, hemoglobin 9.6, platelets 143,000 ASSESSMENT: 1. Altered mental status. Resolved. 2. Hypoxia. Resolved. 3. History of left hip repair. 4. Type 2 diabetes mellitus. 5. Anemia. 6. Hypokalemia. PLAN: Replete potassium. Continue nebulizer treatments, IV antibiotics, Xarelto. cc: MD Praful Harris MD
[2017-01-04] MEDS: NORCO-5 PO PRN (15:09)
[2017-01-04] MEDS: CRESTOR PO SCH (21:39)
[2017-01-04] MEDS: ELAVIL PO SCH (21:39)
[2017-01-04] MEDS: IMDUR PO SCH (21:39)
[2017-01-04] MEDS: SEROQUEL PO SCH (21:40)
[2017-01-05] MEDS: CALMOSEPTINE OINTMENT TOP PRN (02:23)
[2017-01-05] MEDS: ROCEPHIN 1 GM/NS 1 GM/50 ML IVPB IV SCH (02:23)
[2017-01-05] MEDS: NEURONTIN PO SCH ×3 (02:30→18:54)
[2017-01-05] MEDS: DUONEB (A & A) INH SCH ×4 (03:01→23:01)
[2017-01-05] MEDS: NORCO-5 PO PRN ×3 (03:05→20:12)
[2017-01-05 05:06] LABS: MANUAL DIFF NEEDED? NO
[2017-01-05 05:12] LABS: EOS# 0.11 X1000 (0.0-0.7); EOS% 1.6 % (0.0-10.0); HEMATOCRIT 27.4 % (42.0-52.0); HEMOGLOBIN 8.6 g/dL (14.0-18.0); IMM GRAN# 0.02 X1000 (0.0-0.04); IMM GRAN% 0.3 % (0.0-0.5); LYMPH# 0.64 X1000 (1.2-3.4); LYMPH% 9.3 % (20.5-51.1); MCH 27.5 PG (27-31); MCHC 31.4 g/dL (33-37); MCV 87.5 FL (81-99); MONO# 0.43 X1000 (0.11-0.59); MONO% 6.3 % (1.7-9.3); MPV 11.4 FL (7.4-10.4); NEUT% 82.5 % (42.2-75.2); PLT 139 X1000 (130-400); RBC 3.13 XMIL (4.7-6.1)
[2017-01-05 05:52] LABS: AGAP 9; BUN 15 mg/dL (8-22); CALCIUM 8.3 mg/dL (8.8-10.2); CHLORIDE 104 mmol/L (98-107); COSMO 288; POTASSIUM 3.7 mmol/L (3.5-5.1); SODIUM 142 mmol/L (136-145); TCO2 29 mmol/L (25-35)
[2017-01-05] MEDS: SODIUM CHLORIDE 0.9% INJ SCH (06:19)
[2017-01-05] MEDS: PROTONIX IV SCH (06:19)
[2017-01-05] MEDS: HUMALOG SUBQ SCH ×4 (06:20→20:12)
--- NOTE | 2017-01-05 08:52 | PROGRESS NOTE ---
DATE: 01/05/2017 SUBJECTIVE: Interval history was reviewed. The patient's daughter was not there. The patient is more alert and is beginning to walk. He was out of the bed with physical therapy. According to the nurses, he is very weak and friable and not able to do any activities of daily living. He needs some assistance. Apparently, he is eating very well. He was telling me his is sicker than him. REVIEW OF SYSTEMS: None reported. EXAMINATION: Vital Signs: Stable, afebrile. HEENT: Within normal limits. Neck: Supple. No lymphadenopathy. Chest: Clear. Heart: Sounds are regular. Abdomen: Belly is soft, nontender. Good bowel sounds. No masses palpable. No peripheral edema or cyanosis. No obvious neurological deficits. INVESTIGATIONS: CBC: White cell count 6.8, hematocrit 27, platelets of 139,000, SMA 7 was normal. ASSESSMENT AND PLAN: 1. Altered mental status, improving. 2. Deconditioning with poor performance status. Needs aggressive physical therapy. 3. Medically stable and we will stop routine blood workup. DISPOSITION: Will discuss with the family about rehab versus outpatient. Based on the family preference, he will be discharged. Continue present medical therapy. Level of documentation 25 minutes. cc: Praful Lockhart MD
[2017-01-05] MEDS: XARELTO PO SCH (09:26)
[2017-01-05] MEDS: ELAVIL PO SCH (20:12)
[2017-01-05] MEDS: IMDUR PO SCH (20:12)
[2017-01-05] MEDS: CRESTOR PO SCH (20:12)
[2017-01-05] MEDS: SEROQUEL PO SCH (20:16)
[2017-01-06] MEDS: NEURONTIN PO SCH ×2 (02:32→11:25)
[2017-01-06] MEDS: ROCEPHIN 1 GM/NS 1 GM/50 ML IVPB IV SCH (02:32)
[2017-01-06] MEDS: DUONEB (A & A) INH SCH ×3 (02:57→09:32)
[2017-01-06] MEDS: NORCO-5 PO PRN ×2 (04:37→11:28)
[2017-01-06] MEDS: PROTONIX IV SCH ×2 (05:34→06:06)
[2017-01-06] MEDS: SODIUM CHLORIDE 0.9% INJ SCH (05:35)
[2017-01-06] MEDS: HUMALOG SUBQ SCH ×2 (06:05→11:25)
[2017-01-06] MEDS: XARELTO PO SCH ×2 (07:55→11:43)
--- NOTE | 2017-01-06 08:39 | PROGRESS NOTE ---
DATE: 01/06/2017 SUBJECTIVE: Patient is more bright. He has the most positive attitude. Energy level picked up. He is eating very well. He has twice to commit to walk by himself with assistance. He is not belligerent. He is very cooperative. REVIEW OF SYSTEMS: None reported. OBJECTIVE: Vital signs: Vital signs are stable. Blood pressure is running high. HEENT: Exam within normal limits. Neck: Supple. Chest: Clear. Heart: Sounds are regular. Abdomen: Belly is soft, nontender. Extremities: Unable to lift the left leg from the previous hip surgery. Neurologic: No neurological deficits. INVESTIGATIONS: No investigations. ASSESSMENT AND PLAN: 1. Altered mental status, improved. 2. Status post left hip fracture repair. Patient is willing to go for an LTAC in [place]. I did discuss with Siobhan if we are going to get a bed to LTAC he will be discharged today. We will reinstate blood pressure medicine, losartan isosorbide. The patient is medically stable. He needs aggressive physical therapy and discussed with the family as well. cc: Praful Lockhart MD
--- NOTE | 2017-01-06 09:30 | DISCHARGE SUMMARY ---
ADMISSION DATE: 12/10/2016 DISCHARGE DATE: 01/06/2017 DISCHARGING DIAGNOSIS: Acute metabolic encephalopathy due to a combination of anemia, azotemia, withdrawal from chronic pain medications. SECONDARY DIAGNOSES: 1. Type 2 diabetes. 2. Hypertension. 3. Noncritical ischemic heart disease. 4. Hyperlipidemia. 5. Paroxysmal atrial fibrillation. 6. Aspiration pneumonia, resolved. 7. History of gallstones, asymptomatic. 8. Status post left hip arthroplasty. 9. Right great toe amputation. 10. Left orchiectomy. CONSULTANTS: 1. Dr. Long 2. Dr. Motta. 3. Dr. Mckoy PROCEDURES: 1. NG tube. 2. PICC line on the right side. 3. Transfusion of 2 units of packed RBCs. BRIEF HISTORY: Please see the H and P that was done by hospitalist. In brief, he is a 76-year- old white male with the above problems. He recently had a left hip arthroplasty by Dr. Tong, went home after rehab, was brought in altered mental status . The patient slowly became lucid, and transferred out from ICU in stable condition. I did increase seroquel at bedtime. He was completely lucid, and now able to recognize the family members. He was not able to walk due to recent left hip surgery. At the time of discharge, the patient is medically stable. No combativeness noted. He will be transferred to rehab in [place]. IMAGING AND LABORATORY DATA: CBC: White cell count 6.8, hematocrit 28, platelet count 139,000. SMA-7: Sodium 140, potassium 3.7, chloride 104, BUN is 15, creatinine 0.8, glucose 169. Chest x- ray was stable. DISCHARGE MEDICATIONS: Elavil 25 mg at bedtime, gabapentin 600 p.o. t.i.d., [place] 5 every 6 hours as needed, isosorbide 60 mg daily, losartan 100/12.5 daily, magnesium oxide 400 mg daily, metformin 800 p.o. t.i.d., Protonix 40 daily, MiraLAX 17 grams daily, Xarelto 10 mg daily, Crestor 20 daily, and aspirin 81 mg daily, care of the skin, bladder, and bowels, and Seroquel 50 mg at bedtime. cc: MD JULIO Levy
[2017-01-06 12:01] VITALS: BP 134/54
== END 2017-01-06 14:50 ==
LOC: SUPCPDRO → ED 01:46 → SUATTDRO 07:33 → 4N 07:33 → DIRADM 13:57 → 4N 13:59 → ICU 12-13 16:04 → 3S 12-29 21:10
PROVIDERS: ADMIT Internal Medicine; ATTEND Internal Medicine

== ENCOUNTER 2018-09-02 14:44 | Inpatient (IN) ==
[2018-09-02 15:53] LABS: BASO# 0.02 X1000 (0.0-0.2); BASO% 0.3 % (0.0-0.8); EOS# 0.23 X1000 (0.0-0.7); EOS% 3.2 % (0.0-10.0); HEMATOCRIT 35.2 % (42.0-52.0); IMM GRAN# 0.02 X1000 (0.0-0.04); IMM GRAN% 0.3 % (0.0-0.5); LYMPH# 0.66 X1000 (1.2-3.4); LYMPH% 9.2 % (20.5-51.1); MCH 29.6 PG (27-31); MCHC 31.3 g/dL (33-37); MCV 94.9 FL (81-99); MONO# 0.62 X1000 (0.11-0.59); MONO% 8.7 % (1.7-9.3); MPV 11.3 FL (7.4-10.4); NEUT# 5.61 X1000 (1.4-6.5); NEUT% 78.3 % (42.2-75.2); PLT 131 X1000 (130-400); RBC 3.71 XMIL (4.7-6.1); RDW 13.3 % (11.5-14.5); WBC 7.16 X1000 (4.8-10.8)
[2018-09-02 15:55] LABS: BILIRUBIN URINE NEGATIVE (NEGATIVE); BLOOD URINE NEGATIVE (NEGATIVE); COLOR YELLOW; GLUCOSE URINE NEGATIVE (NEGATIVE); KETONE URINE TRACE mg/dL (NEGATIVE); LEUKOCYTES URINE NEGATIVE (NEGATIVE); NITRITE URINE NEGATIVE (NEGATIVE); PH URINE 5.5; PROTEIN URINE 200 mg/dL (NEGATIVE); SP GRAVITY URINE 1.023; TURBIDITY URINE CLEAR (CLEAR); URINE SOURCE VOIDED; UROBILINOGEN URINE NORMAL (NORMAL)
[2018-09-02 15:56] LABS: UR EPITHELIAL CELLS <10 /HPF (<10); URINE BACTERIA NEGATIVE /HPF; URINE RBC <10 /HPF (<10); URINE WBC <10 /HPF (<10)
[2018-09-02 16:11] LABS: AGAP 14; ALBUMIN 4.3 g/dL (3.5-5.0); ALKALINE PHOSPHATASE 90 U/L (32-122); BUN 19 mg/dL (8-22); CALCIUM 9.1 mg/dL (8.8-10.2); CHLORIDE 103 mmol/L (98-107); COSMO 293; ESTIMATED GFR > 60; GLUCOSE 99 mg/dL (70-104); GOT 20 U/L (10-34); GPT 17 U/L (10-44); POTASSIUM 3.7 mmol/L (3.5-5.1); SODIUM 146 mmol/L (136-145); TCO2 29 mmol/L (25-35); TOTAL BILIRUBIN 0.57 mg/dL (0.20-1.00); TOTAL PROTEIN 6.4 g/dL (6.3-8.3)
[2018-09-02] MEDS ORDERED: LASIX PO ONE (16:34)
[2018-09-02] MEDS ORDERED: LABETALOL IV ONE (16:35)
[2018-09-02] MEDS ORDERED: XANAX PO ONE ×2 (16:35→19:47)
--- NOTE | 2018-09-02 16:40 | EKG Report ---
Test Performed on : 09/02/2018 2:54:08 PM Test Reason : ED. No order in [place] Blood Pressure : / mmHG Vent. Rate : 089 BPM Atrial Rate : 089 BPM P-R Int : 206 ms QRS Dur : 088 ms QT Int : 366 ms P-R-T Axes : 086 034 064 degrees QTc Int : 445 ms Sinus rhythm. with premature supraventricular complexes. Otherwise normal ECG When compared with ECG of 28-DEC-2016 10:23, Sinus rhythm. has replaced Atrial fibrillation. Unconfirmed Result
--- NOTE | 2018-09-02 18:04 | Diag Imaging Result Doc PS360 ---
EXAM: CT ABD/PELVIS W/IV CONT ONLY HISTORY: colitis, cancer TECHNIQUE: CT abdomen and pelvis with intravenous contrast COMPARISON: 12/11/2016 FINDINGS: There is a small right pleural effusion measuring 2.0 cm posteriorly and inferiorly in the midline. There are infiltrates and atelectasis in the right lower lobe. The gallbladder is distended. No calcified stones. There is mild fatty infiltration of the liver. Normal spleen, pancreas, adrenal glands, and kidneys. No hydronephrosis. Severe atherosclerosis. No aortic aneurysm. There is stool throughout the colon. No bowel obstruction. Although there is no inflammation about the appendix, the appendix is thickened measuring between seven and 9 mm. No abscess. No free air. The urinary bladder is distended and is normal. There is metallic artifact in the pelvis from bilateral hip prostheses. There is scoliosis with degenerative spine changes. IMPRESSION: 1.Severe atherosclerosis 2.Thickened appendix, but no adjacent inflammation or abscess 3.Small right pleural effusion with basilar atelectasis and/or small infiltrates 4.Fatty liver 5.Mild constipation This exam was performed using automated exposure control, adjustment of mA or kV according to patient size, and/or use of iterative reconstruction technique. Electronically signed by Daniel Soto 09/02/2018 6:01 PM
--- NOTE | 2018-09-02 18:19 | Diag Imaging Result Doc PS360 ---
EXAM: CHEST-1 VIEW HISTORY: cough TECHNIQUE: Chest single view COMPARISON: 07/21/2018 FINDINGS: The lungs are well expanded. The heart is not enlarged. The vessels are not distended. There are no infiltrates. Tiny right effusion. IMPRESSION: Interval improvement. Electronically signed by Daniel Soto 09/02/2018 6:17 PM
--- NOTE | 2018-09-02 18:38 | PROVIDER DOCUMENTATION ---
This chart was entered by Blanka Gonzalez Scribe, acting as scribe for Neelam aMrtínez MD. HPI-Respiratory General - General Chief Complaint: Shortness of Breath Stated Complaint: shortness of breath Time Seen by Provider: 09/02/18 15:27 Source: patient, family () Allergies/Adverse Reactions: Patient Allergies Allergy/AdvReac Type Severity Reaction Status Date / Time levofloxacin [From Levaquin] Allergy Mild Unknown Verified 09/02/18 15:32 Home Medications: Home Medication List Medication Instructions Recorded Confirmed Last Taken Type ROSUVAstatin [Crestor] 20 mg PO HS 11/02/13 09/02/18 09/01/18 History Pantoprazole Sodium 40 mg PO DAILY 08/03/14 09/02/18 09/01/18 History Alprazolam [Xanax] 1 tab PO BID PRN 07/21/18 09/02/18 09/01/18 History Aspirin 81 mg PO DAILY 07/21/18 09/02/18 09/01/18 History Ferrous Sulfate 1 tab PO DAILY 07/21/18 09/02/18 09/01/18 History Gabapentin 600 mg PO DAILY 07/21/18 09/02/18 09/01/18 History CefDINIR [Omnicef] 300 mg PO DAILY #7 cap 07/27/18 09/02/18 09/01/18 Rx Hydralazine [Apresoline] 50 mg PO TID #90 tab 07/27/18 09/02/18 09/01/18 Rx Sitagliptin [Januvia] 50 mg PO DAILY #30 tab 07/27/18 09/02/18 09/01/18 Rx - History of Present Illness-Resp Nature of Presenting Problem: 78 yom presents to the ed with c/o sob and abdominal pain intermittent for 3 months. pt has had 90lbs weight loss in 3 months and has decreased appetite with chronic diarrhea Quality of Pain: reports: other (weakness) Severity in ED: reports: moderate Onset/Duration: reports: other (3 months) Timing: reports: still present, intermittent Exposure: reports: unknown cause Cough Quality/Degree: reports: no cough Current Respiratory Medication Therapy: Initiated see nurses note Associated Symptoms: reports: shortness of breath. denies: cough, fever/chills , headache, sore throat, wheezing Similar Symptoms Previously?: No Recently seen or treated by another doctor?: No Review of Systems - Adult - REVIEW OF SYSTEMS - ADULT Constitutional: reports: fatique, weight loss (90lbs in 3 months), other ( decreased appetite). denies: chills, fever Eyes: reports: no symptoms reported Ears, Nose, Mouth & Throat: reports: no symptoms reported Cardiovascular: reports: no symptoms reported Respiratory: reports: see HPI, dyspnea on exertion, shortness of breath. denies : cough, pleurisy, wheezing Gastrointestinal: reports: see HPI, abdominal pain, diarrhea, poor appetite. denies: nausea, vomiting Genitourinary: reports: no symptoms reported Musculoskeletal: reports: see HPI, muscle weakness Integumentary: reports: see HPI, other (brusing) Neurological: reports: no symptoms reported Psychiatric: reports: no symptoms reported Endocrine: reports: no symptoms reported Hematologic/Lymphatic: reports: no symptoms reported Allergic/Immunologic: reports: no symptoms reported All Other Systems: Reviewed and Negative Past History - Adult - PAST MEDICAL HISTORY-ADULT Review of Records: reports: Old Records Reviewed, Nursing Assessment Review, Medications Reviewed, Social history reviewed & non-contributory. Major Childhood Illnesses: reports: denies history Cardiovascular: reports: CAD, HTN, hyperlipidemia Respiratory: reports: sleep apnea Gastrointestinal: reports: GERD Obstetrical/Gynecological: reports: denies history Genitourinary: reports: denies history Musculoskeletal: reports: denies history Neurological: reports: denies history Endocrine/Immune: reports: Diabetes Diabetes Type: Type 2 Other Conditions: reports: denies history - PRIOR SURGERIES/PROCEDURES Surgical/Procedure History: reports: tonsillectomy, orthopedic (extremity) ( right PRABHU), other (left orchiectomy) - PRIOR HOSPITALIZATIONS Prior Hospitalizations: reports: for other non-related - IMMUNIZATION STATUS Childhood Immunizations: See Nurse Assessment Flu Vaccine: See Nurse Assessment - FAMILY HISTORY Family History: reviewed, not pertinent - SOCIAL HISTORY Smoking: denies Substance Use: denies Living Situation: family Physical Exam-General - PHYSICAL EXAM-ADULT Initial Vital Signs Reviewed: Yes - CONSTITUTIONAL General Appearance: alert, mild distress. negative: appears well - EYES Eyes: PERRL/EOMI, pale conjunctivae - HEAD, EARS, NOSE, MOUTH & THROAT HENMT: negative: moist mucous membranes - NECK Neck: normal inspection - RESPIRATORY Respiratory: lungs clear, normal breath sounds - CARDIOVASCULAR Cardiovascular: normal peripheral pulses, regular rate, rhythm - GASTROINTESTINAL (ABDOMEN) Abdominal Exam: soft, tenderness (RUQ LUQ) - LYMPHATIC Lymphatic: no adenopathy - MUSCULOSKELETAL Back Exam: normal inspection Extremity: normal range of motion, non-tender, normal gait, normal inspection - SKIN Integumentary: warm/dry, pallor - NEUROLOGIC Neurologic: grossly normal - PSYCHIATRIC Psych/Mental Status: normal mood/affect, normal thought content, normal thought process, oriented x 3 Progress - PLAN OF CARE/RESULTS Progress/Plan/Lab Results: Vital Signs - 8 hr 09/02/18 14:55 09/02/18 15:00 09/02/18 15:01 Pulse Rate 88 85 Respiratory Rate 33 H 35 H Blood Pressure 215/110 O2 Sat by Pulse Oximetry 99 100 100 09/02/18 15:10 09/02/18 15:11 09/02/18 15:20 Pulse Rate 85 94 H 82 Respiratory Rate 20 18 Blood Pressure 215/110 O2 Sat by Pulse Oximetry 99 100 99 09/02/18 15:30 09/02/18 15:40 09/02/18 15:50 Pulse Rate 86 77 86 Respiratory Rate 21 36 H 21 Blood Pressure O2 Sat by Pulse Oximetry 100 99 99 09/02/18 16:00 09/02/18 16:08 09/02/18 16:10 Pulse Rate 87 82 90 Respiratory Rate 18 Blood Pressure 219/66 212/120 O2 Sat by Pulse Oximetry 99 98 98 Laboratory Results - last 24 hr 09/02/18 09/02/18 09/02/18 15:10 15:10 15:10 WBC 7.16 RBC 3.71 L Hgb 11.0 L Hct 35.2 L MCV 94.9 MCH 29.6 MCHC 31.3 L RDW Std Deviation 13.3 Plt Count 131 MPV 11.3 H Immature Gran % (Auto) 0.3 Neut % (Auto) 78.3 H Lymph % (Auto) 9.2 L [place] % (Auto) 8.7 Eos % (Auto) 3.2 Baso % (Auto) 0.3 Immature Gran # (Auto) 0.02 Neut # (Auto) 5.61 Lymph # (Auto) 0.66 L [place] # (Auto) 0.62 H Eos # (Auto) 0.23 Baso # (Auto) 0.02 Sodium 146 H Potassium 3.7 Chloride 103 Carbon Dioxide 29 Anion Gap 14 BUN 19 Creatinine 1.0 Estimated GFR/1.73 m2 > 60 BUN/Creatinine Ratio 19 Glucose 99 Calculated Osmolality 293 Calcium 9.1 Total Bilirubin 0.57 AST 20 ALT 17 Alkaline Phosphatase 90 [id number] Pept Total Protein 6.4 Albumin 4.3 Globulin 2.1 Albumin/Globulin Ratio 2.0 Plasma Lactate 1.0 Urine Source Urine Color Urine Turbidity Urine pH Ur Specific Donner Urine Protein Ur Glucose (Stick) Ur Ketones (Stick) Urine Blood Urine Nitrite Urine Bilirubin Urobilinogen Dipstick Urine Leukocytes Urine WBC (Auto) Urine RBC (Auto) U Epithel Cells (Auto) Urine Bacteria (Auto) 09/02/18 09/02/18 15:10 15:40 WBC RBC Hgb Hct MCV MCH MCHC RDW Std Deviation Plt Count MPV Immature Gran % (Auto) Neut % (Auto) Lymph % (Auto) [place] % (Auto) Eos % (Auto) Baso % (Auto) Immature Gran # (Auto) Neut # (Auto) Lymph # (Auto) [place] # (Auto) Eos # (Auto) Baso # (Auto) Sodium Potassium Chloride Carbon Dioxide Anion Gap BUN Creatinine Estimated GFR/1.73 m2 BUN/Creatinine Ratio Glucose Calculated Osmolality Calcium Total Bilirubin AST ALT Alkaline Phosphatase [id number] Pept 1523 H Total Protein Albumin Globulin Albumin/Globulin Ratio Plasma Lactate Urine Source VOIDED Urine Color YELLOW Urine Turbidity CLEAR Urine pH 5.5 Ur Specific [place] 1.023 Urine Protein 200 A Ur Glucose (Stick) NEGATIVE Ur Ketones (Stick) TRACE A Urine Blood NEGATIVE Urine Nitrite NEGATIVE Urine Bilirubin NEGATIVE Urobilinogen Dipstick NORMAL Urine Leukocytes NEGATIVE Urine WBC (Auto) <10 Urine RBC (Auto) <10 U Epithel Cells (Auto) <10 Urine Bacteria (Auto) NEGATIVE Orders Category Date Time Status Saline Loc NOW Care 09/02/18 15:36 Active Heart Healthy Diet Diet 09/02/18 17:07 Active CHEST-1 VIEW [RAD] Stat Exams 09/02/18 15:[address] ABD/PELVIS W/IV CONT ONLY [CT] Stat Exams 09/02/18 15:52 Completed BLOOD CULTURE [BLDCUL] Stat Lab 09/02/18 17:07 Results CBC WITH DIFF [HEME] Stat Lab 09/02/18 15:10 Completed COMPREHENSIVE METABOLIC PANEL [CHEM] Stat Lab 09/02/18 15:10 Completed LACTATE, PLASMA [CHEM] Stat Lab 09/02/18 15:10 Completed PRO B-NATRIURETIC PEPTIDE Stat Lab 09/02/18 15:10 Completed URINALYSIS [URINALYSIS] Stat Lab 09/02/18 15:40 Completed Alprazolam [Xanax] Med 09/02/18 16:35 Discontinued 0.25 mg PO NOW ONE Furosemide [Lasix] Med 09/02/18 16:34 Discontinued 40 mg PO NOW ONE Labetalol Med 09/02/18 16:35 Discontinued 20 mg IV NOW ONE Pulse Oximetry Stat Oth 09/02/18 15:36 Active EKG [EKG] Stat Ther 09/02/18 14:54 Draft Result Diagrams: 09/02/18 15:10 09/02/18 15:10 - REASSESSMENT Reassessment #1 Time Reassessed: 16:19 Status: improving Reassessment #2 Time Reassessed: 17:13 (dr at bedside) Status: unchanged - EKG 1 Time of EKG reading by physician:: 14:54 EKG Read and Signed by:: Neelam Martínez EKG Interpretation (*Must complete 3 of following elements*): Normal Rate: 89 Rhythm: sinus rhythm with premature supraventricular complexes [place]: normal QRS: normal IN Interval: normal ST Wave: normal - CONSULTS/PCP/HOSPITALIST Notification #1 *Consult/PCP/Hospitalist*: Dr. Boyer Time Discussed: 18:37 (new onset CHF) Consult Disposition: Admit Departure - Departure Date of Disposition Decision: 09/02/18 Time of Disposition Decision: 18:37 DIAGNOSIS: CHF, acute Disposition: HOME 01 Certified Medical Emergency: Emergent Condition: Stable Referrals and Follow-Ups: None,PCP [Primary Care Provider] - - Critical Care Note This patient required my direct & personal management of CC.: Yes Total Time (mins): 42 Critical Care Statement: This patient required my direct personal management to treat or rule out processes, the absence of which, could potentiallly result in sudden, clinically significant life or limb threatening deterioration. Attestation - Physician/ CLEMENTINA Attestation Patient care was provided by Advanced Practice Provider:: No The physician spent face to face time with patient:: Yes Advanced Practice Provider documentation review:: Supervising physician onsite and consulted in the evaluation and care of this patient. The physician did have a face to face encounter with the patient. This chart was documented by the indicated scribe, (Blanka Gonzalez Scribe) and accurately reflects the services I performed and decisions made by me, Neelam Martínez MD, as attested by the provider's signature.
[2018-09-02] MEDS ORDERED: APRESOLINE IV ONE (19:47)
[2018-09-02] MEDS ORDERED: DUONEB (A & A) INH ONE (19:47)
[2018-09-02] MEDS ORDERED: NITROGLYCERIN TOP ONE (19:54)
[2018-09-02] MEDS ORDERED: XANAX PO PRN (22:05)
[2018-09-02] MEDS ORDERED: NORVASC PO ONE (22:05)
[2018-09-02] MEDS ORDERED: ZOFRAN IV PRN (22:05)
[2018-09-02] MEDS ORDERED: PERICOLACE PO ONE (22:05)
[2018-09-02] MEDS: HUMALOG SUBQ SCH (22:33)
[2018-09-02] MEDS: NITROGLYCERIN TOP SCH (22:41)
[2018-09-02] MEDS: CRESTOR PO SCH (22:41)
[2018-09-02] MEDS: TYLENOL PO PRN (22:41)
[2018-09-02] MEDS: LASIX IV SCH (22:41)
[2018-09-02] MEDS: XANAX PO PRN (22:42)
[2018-09-03] MEDS: NORVASC PO SCH ×3 (00:02→22:18)
[2018-09-03 04:25] LABS: BASO# 0.03 X1000 (0.0-0.2); BASO% 0.6 % (0.0-0.8); EOS# 0.24 X1000 (0.0-0.7); EOS% 4.5 % (0.0-10.0); HEMATOCRIT 29.9 % (42.0-52.0); HEMOGLOBIN 9.2 g/dL (14.0-18.0); LYMPH# 0.79 X1000 (1.2-3.4); LYMPH% 14.7 % (20.5-51.1); MCH 29.2 PG (27-31); MCHC 30.8 g/dL (33-37); MCV 94.9 FL (81-99); MONO# 0.42 X1000 (0.11-0.59); MONO% 7.8 % (1.7-9.3); MPV 11.2 FL (7.4-10.4); NEUT# 3.91 X1000 (1.4-6.5); NEUT% 72.4 % (42.2-75.2); PLT 117 X1000 (130-400); RBC 3.15 XMIL (4.7-6.1); RDW 13.2 % (11.5-14.5); WBC 5.39 X1000 (4.8-10.8)
[2018-09-03 04:40] LABS: HEMOGLOBIN A1C 5.7 % (4.8-6.0)
[2018-09-03 04:47] LABS: AGAP 15; ALB/GLOB RATIO 2.8; ALBUMIN 3.6 g/dL (3.5-5.0); ALKALINE PHOSPHATASE 73 U/L (32-122); BUN 16 mg/dL (8-22); CALCIUM 8.6 mg/dL (8.8-10.2); CHLORIDE 99 mmol/L (98-107); COSMO 287; ESTIMATED GFR > 60; GLUCOSE 115 mg/dL (70-104); GOT 12 U/L (10-34); GPT 12 U/L (10-44); POTASSIUM 3.2 mmol/L (3.5-5.1); SODIUM 143 mmol/L (136-145); TCO2 29 mmol/L (25-35); TOTAL BILIRUBIN 0.56 mg/dL (0.20-1.00); TOTAL PROTEIN 4.9 g/dL (6.3-8.3)
[2018-09-03 05:27] LABS: TSH 0.98 uIUmL (0.27-4.20)
[2018-09-03] MEDS ORDERED: LACTULOSE PO ONE (06:00)
[2018-09-03] MEDS: HUMALOG SUBQ SCH ×4 (06:36→22:07)
[2018-09-03] MEDS: NITROGLYCERIN TOP SCH ×4 (06:40→22:18)
[2018-09-03] MEDS: LOVENOX SUBQ SCH (06:41)
[2018-09-03] MEDS: PRILOSEC PO SCH (06:41)
--- NOTE | 2018-09-03 08:57 | HISTORY AND PHYSICAL ---
PRIMARY CARE PHYSICIAN: Dr. Ryder Tavares. REASON FOR ADMISSION: One-day history of sudden chest and abdominal pain. HISTORY OF PRESENT ILLNESS: Mr. Osmin Russo is a 78-year-old male with Parkinson disease, type 2 diabetes complicated with peripheral arterial disease, hypertension, hyperlipidemia and chronic kidney disease. He was last admitted here about a month ago for pneumonia. He also has a history of anxiety disorder and chronic anemia and questionable dementia. He is also very hard of hearing, thus there is some difficulty obtaining history from him. History was obtained from the at bedside mainly, and some of it just received from his daughter over the phone. According to the patient, he has had a longstanding history of chronic shortness of breath, cough productive of foamy white sputum, lower extremity swelling, and abdominal swelling since his discharge greater than 5 weeks ago. He says he came in today primarily because he developed sudden chest pain radiating down to his epigastric area. He cannot qualify the pain, but he says it is 8/10. His said for hours he kept pacing the floor and was very restless. He says his breathing has gotten slightly worse, along with the chest pain. His lower extremity swelling and abdominal swelling have not worsened. He has a longstanding history of chronic orthopnea. This, too has not worsened. He denies any fever or chills or any genitourinary complaints. He has a longstanding history of chronic diarrhea. Yesterday, his who is his primary caregiver, was informed that her lung cancer had returned. The daughter did want to discuss this with me, saying that her father is usually a very high strung and anxious man, and he has been very anxious since he got the news about his 's recurrent lung cancer. REVIEW OF SYSTEMS: Notable for intermittent chronic rhinorrhea but no other upper respiratory symptoms. He has no weight loss, no arthralgia or rash. He does say that his feet distally hurt and burn him. Otherwise, a 12-system review was done with positive findings per HPI. ALLERGIES: Levaquin, which causes him tachycardia. HOME MEDICATIONS: Include the followin. Xanax 0.25 mg b.i.d. p.r.n. 2. Aspirin 81 mg daily. 3. Ferrous sulfate 325 mg daily. 4. Gabapentin 600 mg daily. 5. Protonix 40 mg daily. 6. Crestor 20 mg at bedtime. 7. Hydralazine 50 mg three times daily. 8. Januvia 50 mg daily. FAMILY HISTORY: Renal cancer in Dad. Alzheimer's as well as Crohn disease in 1st-degree relatives. PAST SURGICAL HISTORY: 1. He has had the right great toe amputated. 2. Right hip surgery 3. Tonsillectomy. 4. Left orchiectomy. 5. Left total knee arthroplasty. SOCIAL HISTORY: . Stopped smoking 25 years ago. No alcohol or illicit drug use. LAB WORK: White count 75, hemoglobin and hematocrit 11 and 35, platelets 131 with 78% neutrophils. Chemistry: Sodium is 146, BUN 19, creatinine 1.0. Pro-BNP is 1500. Lactate is 1. Urinalysis does show 200 protein and trace ketones. Chest film reviewed by me showed questionable blunting of the right costophrenic angle, borderline cardiomegaly, poor inspiratory effort. CT of the abdomen and pelvis was notable for severe atherosclerotic disease of the mesenteric vessels, thickened appendix but with no inflammatory changes, fatty liver disease and mild constipation. PHYSICAL EXAMINATION: VITAL SIGNS: Blood pressure is 212/120. Heart rate is 90, respirations 18, 98% on 2 liters. GENERAL: He is an elderly man who is very anxious. He is voluntarily having spells of tachypnea and is visibly anxious. After a few seconds he stops and is able to communicate without any difficulty making sentences. He is not in any objective respiratory distress. He is alert and oriented to person, place and time, but hard of hearing. HEENT: Head is normocephalic, atraumatic. Eyes PERRL, EOMI. He is anicteric, not pale. ENT: Oropharynx exam is grossly normal. No central cyanosis. NECK: Supple. No JVD, carotid bruit or thyromegaly. No hepatojugular reflux. CHEST: Decreased air entry in the bases with few scattered crepitations. No wheezes. CARDIOVASCULAR: First and second heart sounds heard. No gallops, murmurs or rubs. Rhythm is regular. ABDOMEN: Full and soft. No focal areas of tenderness. Bowel sounds hyperactive. RECTAL: Deferred at this time. EXTREMITIES: The patient has 1+ pitting edema with hyperpigmentation changes of his lower extremities and shins. There is no erythema. His pulses distally are 1+. There is an amputated right hallux noted. No skin breakdown in his feet, on his lower extremities, or other extremities. Pulses distally in all extremities are symmetrical and regular. No clubbing or peripheral cyanosis. NEUROLOGIC: No gross focal deficits. SKIN: See above, but otherwise grossly unremarkable. MUSCULOSKELETAL: No overt joint deformity and limited range of motion of his knees, wrists, and elbows. ASSESSMENT: 1. Atypical chest pain. 2. Hypertensive heart disease with probable early congestive heart failure. 3. Type 2 diabetes. 4. Peripheral arterial disease. 5. Chronic venous insufficiency. 6. Hyperlipidemia. 7. Anxiety disorder. 8. Anemia of chronic disease. PLAN: The primary goal here is to control the patient's hypertension. The patient's chest pain is atypical because the patient says that his chest pain improved when he got a tablet. When I reviewed the medications given to him, he was given some Lasix, aspirin, and IV labetalol. His troponin at this time is pending, but his EKG reportedly showed sinus rhythm with occasional PVCs. No gross ST wave changes noted. Will do serial cardiac enzymes, however, and repeat another echocardiogram to see where his cardiac function is. It was 60% last year. There is a strong anxiety component to the patient's symptoms, based on how he is manifesting, and could be the bad news that he heard about his . The patient does have well-known peripheral arterial disease and is on aspirin and statins. Lipid panel has been ordered, and he may require higher doses of statins. Anemia workup was also ordered. This needs to be followed. Otherwise, I have started the patient on amlodipine for his blood pressure and have started him on nitroglycerin paste for blood pressure control and possible anginal symptoms. Renin, angiotensin, aldosterone inhibitors may be considered if EF is further depressed. DVT prophylaxis with Lovenox for now, due to evidence of chronic venous insufficiency. His sugar will be managed with a sliding scale. I have ordered a lipase for the patient's abdominal pain, since he is on a DPP4 inhibitor, which predisposes him to pancreatitis. This needs to be also followed. cc: MD Susy Clarke MD
[2018-09-03] MEDS: APRESOLINE PO SCH ×3 (10:53→18:21)
[2018-09-03] MEDS: LASIX IV SCH ×2 (10:54→22:19)
[2018-09-03] MEDS: NEURONTIN PO SCH (10:54)
[2018-09-03] MEDS: ASPIRIN PO SCH (10:54)
[2018-09-03] MEDS: XANAX PO PRN ×2 (10:54→22:18)
--- NOTE | 2018-09-03 14:39 | PROGRESS NOTE ---
DATE: 09/03/2018 SUBJECTIVE: The patient is resting comfortably in bed. He states that his shortness of breath has improved. OBJECTIVE: Vital Signs: Temperature 97.3 degrees, blood pressure 156/73, heart rate 73, respirations 18, O2 saturations 100% on 2 L nasal cannula. General: This is an elderly male, lying in bed in no acute distress. Heart: S1, S2 normal. Regular rate and rhythm. Lungs: Equal air entry bilaterally. No crackles. No rales. Abdomen: Positive bowel sounds. Soft, nontender, nondistended. Extremities: No edema. No cyanosis. Neurologic: The patient is alert and oriented x3. LABS: White blood cell count 5.3, hemoglobin 9.2, hematocrit 29, platelets 117. Sodium 133, potassium 3.2, BUN 16, creatinine 1, glucose 125, B 12 230. ASSESSMENT AND PLAN: 1. Paroxysmal atrial fibrillation. The CT of the chest shows there are no infiltrates and atelectasis. Will start the patient on antibiotics and bronchodilator therapy. We will also check a procalcitonin level . We will continue to trend the patient on supplemental oxygen 2. Diabetes mellitus type 2. This appears to be diet controlled. The patient's hemoglobin A1C is 5.7. 3. Neuropathy. Continue Neurontin. 4. Thrombocytopenia. We will monitor the platelet count closely. 5. Hypertension. Continue on hydralazine and Norvasc. 6. Anxiety disorder. Continue on Xanax. 7. Deep vein thrombosis prophylaxis. Continue on Lovenox. 8. Disposition: We will consult physical therapy. cc: Leila Levine MD
[2018-09-03] MEDS: NORCO-5 PO PRN ×2 (15:30→22:18)
[2018-09-03] MEDS: DUONEB (A & A) INH SCH ×2 (16:28→21:41)
[2018-09-03] MEDS: MAXIPIME 2 GM in NS 100 ML IV SCH (16:35)
[2018-09-03] MEDS ORDERED: ATIVAN IV PRN (17:07)
[2018-09-03] MEDS: ZYVOX 600 MG/D5W 600 MG/300 ML IVPB IV SCH (17:38)
[2018-09-03] MEDS: CRESTOR PO SCH (22:18)
[2018-09-04] MEDS: DUONEB (A & A) INH SCH ×4 (04:35→22:05)
[2018-09-04] MEDS: MAXIPIME 2 GM in NS 100 ML IV SCH ×2 (04:39→18:00)
[2018-09-04] MEDS: NORCO-5 PO PRN ×5 (04:39→22:49)
[2018-09-04] MEDS: TYLENOL PO PRN (04:39)
[2018-09-04] MEDS: NITROGLYCERIN TOP SCH ×4 (04:39→22:07)
[2018-09-04] MEDS: LOVENOX SUBQ SCH (05:24)
[2018-09-04] MEDS: ZYVOX 600 MG/D5W 600 MG/300 ML IVPB IV SCH ×2 (05:24→18:52)
[2018-09-04] MEDS: PRILOSEC PO SCH (05:25)
[2018-09-04] MEDS: HUMALOG SUBQ SCH ×4 (05:31→22:49)
[2018-09-04 07:47] LABS: HEMOGLOBIN 9.7 g/dL (14.0-18.0); MCH 29.3 PG (27-31); MCHC 30.3 g/dL (33-37); MCV 96.7 FL (81-99); MPV 11.7 FL (7.4-10.4); RBC 3.31 XMIL (4.7-6.1); RDW 13.4 % (11.5-14.5); WBC 7.03 X1000 (4.8-10.8)
[2018-09-04 08:08] LABS: CALCIUM 8.1 mg/dL (8.8-10.2); CREATININE 1.2 mg/dL (0.7-1.2); POTASSIUM 3.5 mmol/L (3.5-5.1)
[2018-09-04] MEDS: APRESOLINE PO SCH ×3 (08:38→18:00)
[2018-09-04] MEDS: LASIX IV SCH (08:38)
[2018-09-04] MEDS: NEURONTIN PO SCH (08:38)
[2018-09-04] MEDS: XANAX PO PRN ×2 (08:39→18:00)
[2018-09-04] MEDS: ASPIRIN PO SCH (08:39)
[2018-09-04] MEDS: NORVASC PO SCH ×2 (08:39→22:07)
--- NOTE | 2018-09-04 09:08 | ECHO REPORT ---
ORDER DATE: 09/03/2018 INTERPRETING PHYSICIAN: Dr. Knight REQUESTING PHYSICIAN: CLINICAL INDICATIONS: This is a 78-year-old male with CHF, chest pain, shortness of breath. M-MODE MEASUREMENTS: Right ventricle: cm. Left ventricle end diastole: 5.7 cm. Left ventricle end systole: 3.5 cm. Posterior wall: 1.2 cm. Interventricular septum: 1.3 cm. Left atrium: 4.0 cm. Aortic root: 3.5 cm. SUMMARY OF 2-DIMENSIONAL IMAGIN. The left ventricular function appears to be preserved. Ejection fraction 55% to 60%. 2. Definity was added to optimize visualization of endocardium. The study was very difficult. 3. Right ventricle appears to be grossly normal. 4. Mitral valve appears to be grossly normal. Color flow mapping is unremarkable. 5. Pulse wave Doppler of mitral inflow shows reversal of the E and the A ratio. The ratio is 0.5. 6. Tissue Doppler of septal and lateral mitral annulus averages 6 cm. 7. There is no definite diastolic dysfunction. 8. The aortic valve appears to be normal. Color flow mapping is unremarkable. 9. Pulmonic valve looks normal. Color flow mapping is unremarkable. 10.Tricuspid valve shows trace regurgitation. 11.Pulmonary pressure is estimated at 27 to 32 mmHg. 12.There is no pericardial effusion, mass or thrombus. Clinical correlation is recommended. cc: MD Susy Mcgarry MD
--- NOTE | 2018-09-04 12:57 | PROGRESS NOTE ---
DATE: 09/04/2018 SUBJECTIVE: The patient is resting comfortably in bed. He states that his coughing has improved. However, he is still on supplemental oxygen. OBJECTIVE: Vital Signs: Temperature 98, blood pressure 123/60, heart rate 75, respirations 18, O2 saturation 97% on 2 L nasal cannula. General: This is an elderly male lying in bed in no acute distress. Heart: S1, S2. Normal. Lungs: Equal air entry bilaterally. No crackles. No rales. Abdomen: Positive bowel sounds. Soft, nontender, nondistended. Extremities: No edema. No cyanosis. Neurologic: The patient is alert and oriented x3. LABORATORIES: White blood cell count 7, hemoglobin 9.7, hematocrit 32, platelets 108,000. Sodium 144, potassium 3.5, chloride 100, CO2 31, BUN 19, creatinine 1.2, glucose 167. ASSESSMENT AND PLAN: 1. Dyspnea. There were infiltrates present on the CT of the abdomen and pelvis. We will order a CT of the chest to further assess them. In the meantime, we will continue with antibiotic therapy and bronchodilator therapy. We will attempt to wean the patient off of supplemental oxygen. The procalcitonin level is currently pending. 2. Anxiety disorder. Continue on Xanax. 3. Hypertension. Continue on the current antihypertensive regimen. 4. Diabetes mellitus type 2. Continue on sliding scale insulin. 5. Anemia. Stable. 6. Thrombocytopenia. We will discontinue the Lovenox and monitor the patient's platelet count closely. 7. Physical Therapy has been consulted. cc: Leila Levine MD
[2018-09-04] MEDS: CRESTOR PO SCH (22:07)
[2018-09-05] MEDS: NORCO-5 PO PRN ×2 (02:46→08:09)
[2018-09-05] MEDS: XANAX PO PRN (02:46)
[2018-09-05] MEDS: DUONEB (A & A) INH SCH ×4 (03:24→22:45)
[2018-09-05] MEDS: NITROGLYCERIN TOP SCH ×2 (04:03→09:39)
[2018-09-05] MEDS: MAXIPIME 2 GM in NS 100 ML IV SCH ×2 (04:03→16:13)
[2018-09-05] MEDS: HUMALOG SUBQ SCH ×4 (06:14→21:45)
[2018-09-05] MEDS: ZYVOX 600 MG/D5W 600 MG/300 ML IVPB IV SCH ×2 (06:45→20:46)
--- NOTE | 2018-09-05 07:26 | EKG Report ---
Test Performed on : 09/03/2018 06:30:53 AM Test Reason : CP Blood Pressure : / mmHG Vent. Rate : 073 BPM Atrial Rate : 073 BPM P-R Int : 212 ms QRS Dur : 090 ms QT Int : 426 ms P-R-T Axes : 067 034 064 degrees QTc Int : 469 ms Sinus rhythm. with 1st degree AV block. Otherwise normal ECG When compared with ECG of 02-SEP-2018 14:54, (Unconfirmed) premature supraventricular complexes. are no longer present Confirmed by Ronel RUTHERFORD, Jose Young ([id number]) on 09/05/2018 8:22:00 AM
[2018-09-05 07:42] LABS: BASO# 0.01 X1000 (0.0-0.2); BASO% 0.1 % (0.0-0.8); EOS# 0.25 X1000 (0.0-0.7); EOS% 2.9 % (0.0-10.0); HEMATOCRIT 34.6 % (42.0-52.0); HEMOGLOBIN 10.5 g/dL (14.0-18.0); IMM GRAN# 0.02 X1000 (0.0-0.04); IMM GRAN% 0.2 % (0.0-0.5); LYMPH# 0.51 X1000 (1.2-3.4); LYMPH% 5.8 % (20.5-51.1); MCH 29.2 PG (27-31); MCHC 30.3 g/dL (33-37); MCV 96.4 FL (81-99); MONO# 0.61 X1000 (0.11-0.59); MPV 11.5 FL (7.4-10.4); NEUT# 7.36 X1000 (1.4-6.5); PLT 117 X1000 (130-400); RBC 3.59 XMIL (4.7-6.1); RDW 13.4 % (11.5-14.5); WBC 8.76 X1000 (4.8-10.8)
[2018-09-05 07:48] LABS: CALCIUM 8.9 mg/dL (8.8-10.2); CREATININE 1.2 mg/dL (0.7-1.2); MAGNESIUM 1.6 mg/dL (1.5-2.7); PHOSPHORUS 4.2 mg/dL (2.7-4.5); POTASSIUM 3.8 mmol/L (3.5-5.1)
[2018-09-05] MEDS: NORVASC PO SCH ×2 (08:08→20:46)
[2018-09-05] MEDS: ASPIRIN PO SCH (08:09)
[2018-09-05] MEDS: NEURONTIN PO SCH (08:09)
[2018-09-05] MEDS: APRESOLINE PO SCH ×3 (08:09→17:53)
[2018-09-05] MEDS: PRILOSEC PO SCH (08:09)
--- NOTE | 2018-09-05 08:52 | Diag Imaging Result Doc PS360 ---
EXAM: CHEST-PORTABLE HISTORY: dyspnea TECHNIQUE: Chest single view COMPARISON: 09/02/2018 FINDINGS: Poor inspiratory effort. There is atelectasis versus a small infiltrate in the right lung base. No cardiomegaly. Questionable trace right pleural fluid. IMPRESSION: Persistent atelectasis versus small infiltrate in the right base. Electronically signed by Daniel Soto 09/05/2018 8:49 AM
[2018-09-05] MEDS: VITAMIN B-12 SL SCH (11:43)
--- NOTE | 2018-09-05 12:11 | PROGRESS NOTE ---
DATE: 09/05/2018 SUBJECTIVE: The patient is resting comfortably in bed. He has been very agitated this morning. He states that he wants to go home. OBJECTIVE: Vital Signs: Temperature 97.4 degrees, blood pressure 124/62, heart rate 85, respirations 20, O2 saturation is 98% on 2 L nasal cannula. General: This is a chronically ill- appearing, elderly male lying in bed in no acute distress. Heart: S1, S2 normal. Regular rate and rhythm. Lungs: Equal air entry bilaterally. No wheezing. No rales. Abdomen: Positive bowel sounds. Soft, nontender, nondistended. Extremities: No edema. No cyanosis. No calf tenderness. Neurologic: The patient is alert and oriented x3, but anxious. LABS: Sodium 143, potassium 3.8, chloride 100, CO2 30, BUN 24, creatinine 1.2, glucose 112. Hemoglobin 10, hematocrit 34, platelets 117,000, white blood cell count 8.7. ASSESSMENT AND PLAN: 1. Right lower lobe pneumonia. Continue with antibiotic and bronchodilator therapy. 2. Anxiety disorder. Continue on Xanax. 3. Diabetes mellitus type 2. Continue on sliding scale insulin. 4. Thrombocytopenia. We will continue to monitor this closely. 5. Chronic kidney disease. Stable. 6. Physical therapy has been consulted. 7. Disposition. Once the patient is medically stable, he will be discharged home with home health. cc: Leila Levine MD
--- NOTE | 2018-09-05 19:19 | INFECTIOUS DISEASE CONSULT REP ---
DATE: 09/05/2018 CONCLUSION: The patient has a right lower lobe infiltrate versus atelectasis. Given the fact that the patient was coughing a lot and now he feels much better since he has been having antibiotics, I think he probably does have a right lower lobe pneumonia. Patient also told me that his nose had a clear discharge in the past day or 2. RECOMMENDATIONS: I agree with treating with Zyvox and Levaquin. DISCUSSION: The patient is very hard of hearing and it was very difficult for me to get a history from him. He was initially admitted to the hospital with chest pain, abdominal pain and coughing. He had previously been in the hospital for pneumonia. Patient was not having any fever or shaking chills and when he did cough, he did not bring up any sputum. His studies thus far show a CBC with a white count of 8760, hemoglobin 10.5, and platelet count 117,000. Creatinine is 1.2. GFR is 59. Blood cultures are negative. Chest x-ray shows right lower lobe infiltrate. PAST MEDICAL HISTORY: Positive for Parkinson disease, diabetes mellitus, peripheral arterial disease, hypertension, hyperlipidemia, chronic kidney disease, and chronic obstructive pulmonary disease. REVIEW OF SYSTEMS: I was unable to obtain it from the patient. SURGICAL HISTORY: He has had right great toe amputated, right hip surgery, a tonsillectomy, left orchiectomy and a left total knee arthroplasty. FAMILY HISTORY: Positive for cancer, Alzheimer disease and Crohn disease. ALLERGIES: Patient's allergy is to Levaquin which causes him to have an accelerated heart rate. HOME MEDICATIONS: Include Xanax, aspirin, ferrous sulfate, gabapentin, Protonix, Crestor hydralazine, and Januvia. SOCIAL HISTORY: The patient is . He stopped smoking 25 years ago. He does not drink alcoholic beverages or abuse drugs. PHYSICAL EXAMINATION: Vital Signs: Temperature is 97.5 degrees, pulse 82, respirations 16, blood pressure 107/48. The patient is 5 feet 11 inches tall, weighs 180 pounds. General: This is an ill-appearing elderly male. He is in no acute distress. Head/eyes/ears/nose/throat: He has marked decrease in his hearing. I did not see any white patches on his tongue. There was no drainage at this time from his nose or his ears. Neck: No meningismus. Thorax: Increased AP diameter of the chest. Lungs: I heard a few rales in the right base. Abdomen: Soft and nontender. Cardiac: Heart rate is regular. Extremities: Patient has leg edema but no erythema. Neurologic: The patient was awake. He did answer questions and he followed requests to move his extremities. There was not a tremor. INTEGUMENT: No rash noted. Thank you for the consult. cc: Marco A Hidalgo MD
[2018-09-05] MEDS: CRESTOR PO SCH (20:46)
[2018-09-06] MEDS: MAXIPIME 2 GM in NS 100 ML IV SCH ×2 (03:38→16:47)
[2018-09-06] MEDS: DUONEB (A & A) INH SCH ×4 (03:52→23:40)
[2018-09-06] MEDS: PRILOSEC PO SCH ×2 (06:00→09:54)
[2018-09-06] MEDS: HUMALOG SUBQ SCH ×4 (06:11→20:53)
[2018-09-06 07:22] LABS: BASO# 0.01 X1000 (0.0-0.2); BASO% 0.2 % (0.0-0.8); EOS# 0.22 X1000 (0.0-0.7); EOS% 3.7 % (0.0-10.0); HEMOGLOBIN 9.9 g/dL (14.0-18.0); LYMPH# 0.83 X1000 (1.2-3.4); MCH 28.9 PG (27-31); MCV 96.2 FL (81-99); MONO# 0.62 X1000 (0.11-0.59); MONO% 10.5 % (1.7-9.3); MPV 12.1 FL (7.4-10.4); NEUT# 4.23 X1000 (1.4-6.5); NEUT% 71.6 % (42.2-75.2); PLT 102 X1000 (130-400); RBC 3.43 XMIL (4.7-6.1); WBC 5.91 X1000 (4.8-10.8)
[2018-09-06 07:45] LABS: CALCIUM 8.4 mg/dL (8.8-10.2); CREATININE 1.3 mg/dL (0.7-1.2); POTASSIUM 3.5 mmol/L (3.5-5.1)
[2018-09-06] MEDS: NORCO-5 PO PRN ×3 (09:53→17:36)
[2018-09-06] MEDS: ASPIRIN PO SCH (09:53)
[2018-09-06] MEDS: NEURONTIN PO SCH (09:53)
[2018-09-06] MEDS: VITAMIN B-12 SL SCH (09:53)
[2018-09-06] MEDS: APRESOLINE PO SCH ×3 (09:53→16:49)
[2018-09-06] MEDS: NORVASC PO SCH ×2 (09:53→20:53)
[2018-09-06] MEDS: ZYVOX 600 MG/D5W 600 MG/300 ML IVPB IV SCH ×2 (09:55→20:52)
[2018-09-06] MEDS: XANAX PO PRN (13:39)
--- NOTE | 2018-09-06 13:39 | PROGRESS NOTE ---
DATE: 09/06/2018 SUBJECTIVE: The patient is resting in bed. His is present in the room. The patient is asking to be discharged home. OBJECTIVE: Vital Signs: Temperature 98.4, pulse 82, respiratory rate 18, blood pressure is 119/58, oxygen saturation is 94%. HEENT: Atraumatic and normocephalic. Cardiovascular: S1, S2. Respiratory system has evidence of good air entry bilaterally. Abdomen soft, nontender. No masses felt. Extremities: No evidence of edema. Central Nervous System: No obvious focal deficits noted. LABORATORY DATA: WBC is 5.91, hematocrit 33 with platelet count of 102,000. Sodium is 140. Potassium 3.5. Chloride is 100. Bicarb 28. BUN is 28, creatinine is 1.3. X-ray of the chest shows evidence of atelectasis versus small infiltrate in the right lung base. ASSESSMENT AND PLAN: 1. Right lower lobe pneumonia. Continue antibiotics. 2. Diabetes mellitus. Continue sliding scale insulin as well as blood sugar monitoring. 3. Anxiety disorder. Continue alprazolam. 4. Thrombocytopenia. Follow up on platelet count. 5. Chronic kidney disease. Follow up on renal function. Avoid nephrotoxic agent. 6. Deconditioning. Physical therapy consulted. DISPOSITION: The patient will be going home with home health services when ready for discharge. cc: Vishal Whiting MD
--- NOTE | 2018-09-06 17:58 | INFECTIOUS DISEASE PROGRESS NO ---
DATE: 09/06/2018 PRESENT ILLNESS: Mr. Russo is being treated for a right lower lobe pneumonia. 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 MEDICATIONS: He is on day 3 of cefepime 2 g IV every 12 hours and Zyvox 600 mg IV every 12 hours. PHYSICAL EXAMINATION: Vital Signs: Temperature is 98.4 degrees, pulse rate 79 , respiratory rate 22, blood pressure 106/42, O2 saturation is 98% on 2 L nasal cannula. General: This is a chronically ill-appearing, elderly gentleman. He is sitting up in a chair, in no acute distress. HEENT: He is very hard of hearing. Atraumatic, normocephalic. Oral mucous membranes are pink and moist. Conjunctivae are pale. Neck: Supple. Trachea is midline. Cardiovascular: Heart rate and rhythm are regular. Normal sinus rhythm on the monitor. Radial and pedal pulses are palpable bilaterally. Respiratory: Lung sounds are clear in the upper lobes. Diminished in the bases. Abdomen: Soft, round, and nontender. Bowel sounds are active. Neurologic: He is awake, alert, and oriented. LABORATORY AND X-RAY: Today his white count is 5.91, hemoglobin 9.9, platelet count 102,000. Creatinine is 1.3, GFR 53. IgG of 451 and an IgA of 65. Blood cultures have shown no growth after 48 hours. No imaging reports today. ASSESSMENT AND PLAN: Mr. Rusos has a right lower lobe pneumonia and seems to be doing a lot better today. He says he has had less of a cough and is breathing much better. For now we will continue him on the cefepime and Zyvox as ordered. There is also a low IgG level. We will go ahead and order 20 g of IVIG to be given x1 this evening. I have explained this to the patient and will plan on rechecking his immunoglobulin levels in 6-8 weeks to see if he has a chronic issue. These plans have been discussed with and recommended by Dr. Hidalgo. COMORBIDITIES: For Mr. Russo include Parkinson's disease, diabetes mellitus, peripheral artery disease, chronic kidney disease, and chronic obstructive pulmonary disease. Dictated by ARNAUD Cash for Marco A Hidalgo MD This chart was documented by, ARNAUD Cash and accurately reflects the services performed, treatment plan and medical decisions as attested by the providers signature Marco A Hidalgo MD. cc: Marco A Hidalgo MD MTDD
[2018-09-06] MEDS ORDERED: GAMUNEX-C 10% IV ONE (18:00)
[2018-09-06] MEDS: CRESTOR PO SCH (20:53)
[2018-09-07] MEDS: DUONEB (A & A) INH SCH ×4 (03:21→21:25)
[2018-09-07] MEDS: MAXIPIME 2 GM in NS 100 ML IV SCH ×2 (04:07→16:13)
[2018-09-07] MEDS: PRILOSEC PO SCH (06:44)
[2018-09-07] MEDS: HUMALOG SUBQ SCH ×4 (06:45→20:31)
[2018-09-07 06:52] LABS: BASO# 0.01 X1000 (0.0-0.2); BASO% 0.2 % (0.0-0.8); EOS# 0.26 X1000 (0.0-0.7); EOS% 5.2 % (0.0-10.0); HEMATOCRIT 33.4 % (42.0-52.0); HEMOGLOBIN 10.2 g/dL (14.0-18.0); IMM GRAN# 0.02 X1000 (0.0-0.04); IMM GRAN% 0.4 % (0.0-0.5); MCH 29.5 PG (27-31); MCHC 30.5 g/dL (33-37); MCV 96.5 FL (81-99); MONO# 0.36 X1000 (0.11-0.59); MONO% 7.2 % (1.7-9.3); MPV 12.3 FL (7.4-10.4); NEUT# 3.76 X1000 (1.4-6.5); PLT 104 X1000 (130-400); RBC 3.46 XMIL (4.7-6.1); RDW 12.9 % (11.5-14.5); WBC 5.01 X1000 (4.8-10.8)
[2018-09-07 07:18] LABS: ALB/GLOB RATIO 1.1; ALBUMIN 3.1 g/dL (3.5-5.0); CREATININE 1.6 mg/dL (0.7-1.2); POTASSIUM 3.7 mmol/L (3.5-5.1); TOTAL BILIRUBIN 0.35 mg/dL (0.20-1.00); TOTAL PROTEIN 5.8 g/dL (6.3-8.3)
--- NOTE | 2018-09-07 09:18 | Diag Imaging Result Doc PS360 ---
EXAM: CHEST-1 VIEW 09/07/2018 HISTORY: pneumonia TECHNIQUE: AP portable at 0524 COMMENT: There is a small right pleural effusion. There is hazy opacity over the right base which may indicate additional airspace disease in the middle lobe and/or the lower lobe. The inspiration is generally less optimal than on 09/02/2018. The opacity at the right base is somewhat worse than on 09/05/2018. IMPRESSION: Small right pleural effusion and basilar atelectasis versus pneumonia. Electronically signed by Jimmy Love 09/07/2018 9:16 AM
[2018-09-07] MEDS: ZYVOX 600 MG/D5W 600 MG/300 ML IVPB IV SCH ×2 (09:28→20:30)
[2018-09-07] MEDS: NEURONTIN PO SCH (09:29)
[2018-09-07] MEDS: VITAMIN B-12 SL SCH (09:29)
[2018-09-07] MEDS: NORVASC PO SCH ×2 (09:29→20:31)
[2018-09-07] MEDS: APRESOLINE PO SCH ×3 (09:29→17:04)
[2018-09-07] MEDS: ASPIRIN PO SCH (09:29)
--- NOTE | 2018-09-07 12:39 | DISCHARGE SUMMARY ---
ADMISSION DATE: 09/02/2018 DISCHARGE DATE: PRINCIPAL DIAGNOSIS: Pneumonia. SECONDARY DIAGNOSIS: 1. Hypertension. 2. Atypical chest pain. 3. Impaired hearing. 4. Parkinson's disease. 5. Peripheral arterial disease. 6. Chronic kidney disease. 7. Diabetes mellitus, type 2. 8. Hyperlipidemia. 9. Anxiety disorder. 10. Chronic anemia. 11. Dementia. 12. Immunodeficiency. 13. Vitamin B12 deficiency. DISCHARGE MEDICATIONS: 1. Amlodipine 5 mg p.o. twice a day. 2. Crestor 10 mg p.o. once a day. 3. Pantoprazole 40 mg p.o. daily. 4. Ferrous sulfate 1 p.o. daily. 5. Neurontin 600 mg p.o. once a day. 6. Xanax 1 mg p.o. twice a day. 7. Aspirin 81 mg p.o. daily. 8. Hydralazine 50 mg 3 times a day. 9. Januvia 50 mg p.o. daily. CONSULTATIONS DONE DURING THIS HOSPITAL STAY: Dr. Marco A Hidalgo, Infectious Disease. PROCEDURES DONE DURING THIS HOSPITAL STAY: 1. CT scan of the abdomen and pelvis on 09/02/2018. 2. 2D echo of the heart on 09/03/2018. HOSPITAL COURSE: Mr. Osmin Russo is a 78-year-old male who was admitted to the hospital because of shortness of breath, cough, bringing up whitish sputum, lower extremity swelling, abdominal swelling. Also, he had the sudden onset of chest pain radiating down his epigastric area. He was found to have a markedly elevated blood pressure of about 212/120. At the time of her presentation, the plan was to optimize blood pressure control. Cardiac enzymes were noted to be negative. X-ray of the chest did not show any infiltrates. Echo showed ejection fraction of about 55% to 60% with left ventricular function which appeared preserved. The patient was also thought to have pneumonia. X-ray of his chest showed atelectasis versus a small infiltrate in the right lung base. The patient was placed on antibiotics. Antibiotic management was done by Dr. Marco A Hidalgo. The patient was also noted to have low immunoglobulin levels and diagnosed as having immunodeficiency. The patient was started on immunoglobulin. At this time, the patient has done fairly well. He can now be discharged home. DISCHARGE PHYSICAL EXAMINATION: Vital Signs: During my evaluation today, the vital signs are as follows: Temperature 97.8. Pulse 78, respiratory rate 18, blood pressure 112/61, oxygen saturation 99%. HEENT: Atraumatic, normocephalic. Cardiovascular: S1, S2. Respiratory: Occasional rhonchi noted. Abdomen: Soft, nontender. No masses felt. Extremities: There are areas of erythema in both lower extremities. PLAN: The patient can be discharged home today and can continue his antibiotics as an outpatient. Patient will need to follow up with his primary care physician as well as the hogshead head matcher and also Dr. Marco A Hidalgo who will be addressing the issue of his antibiotics. cc: Vishal Whiting MD
--- NOTE | 2018-09-07 15:18 | INFECTIOUS DISEASE PROGRESS NO ---
DATE: 09/07/2018 PRESENT ILLNESS: The patient has a right lower lobe pneumonia and an immunoglobulin deficiency. MEDICATIONS: This is day 4 of treatment with the combination of Zyvox and cefepime. Yesterday evening, the patient got an infusion of immunoglobulin. PHYSICAL EXAMINATION: Vital Signs: Temperature is 98, pulse 83, respirations 18, blood pressure 114/68. Generally, this is a chronically ill-appearing elderly male. He is in no acute distress. Head, eyes, ears, nose and throat. He has decrease in his hearing. He can see near objects. There were no white patches on his tongue. Neck: No meningismus. Lungs: There were distant breath sounds, but I did not hear any rales or rhonchi. Cardiovascular: Heart rate is regular. Abdomen is soft and nontender. Neurologic: Patient is alert. He is sitting in a chair. He can move his extremities. There is no tremor. He does have decreased hearing. LABORATORY DATA AND X-RAY: Chest x-ray shows worsening of the right basilar opacity. Blood cultures are sterile. IgG is 451, IgA is 65. Liver function studies are normal. Creatinine is 1.6. GFR is 42. CBC shows a white count of 5010. Hemoglobin 10.2 and platelet count 104,000. ASSESSMENT AND PLAN: The patient has pneumonia, and he also has an immunoglobulin deficiency. I plan to continue with his current antibiotics. Last evening, he received his infusion of intravenous immunoglobulin. COMORBIDITIES: The patient has Parkinson's disease, diabetes mellitus, peripheral arterial disease, chronic kidney disease, and chronic obstructive pulmonary disease. cc: Marco A Hidalgo MD
[2018-09-07] MEDS: CRESTOR PO SCH (20:31)
[2018-09-07] MEDS: NORCO-5 PO PRN (20:44)
[2018-09-07] MEDS: XANAX PO PRN (20:45)
[2018-09-08] MEDS: DUONEB (A & A) INH SCH ×4 (03:35→21:48)
[2018-09-08] MEDS: MAXIPIME 2 GM in NS 100 ML IV SCH ×2 (03:36→16:13)
[2018-09-08] MEDS: NORCO-5 PO PRN (04:43)
[2018-09-08] MEDS: TYLENOL PO PRN (05:43)
[2018-09-08] MEDS: PRILOSEC PO SCH (06:03)
[2018-09-08] MEDS: HUMALOG SUBQ SCH ×4 (06:17→20:37)
[2018-09-08] MEDS: NEURONTIN PO SCH (08:12)
[2018-09-08] MEDS: ZYVOX 600 MG/D5W 600 MG/300 ML IVPB IV SCH ×2 (08:12→20:37)
[2018-09-08] MEDS: ASPIRIN PO SCH (08:13)
[2018-09-08] MEDS: APRESOLINE PO SCH ×3 (08:13→16:13)
[2018-09-08] MEDS: NORVASC PO SCH ×2 (08:13→20:37)
[2018-09-08] MEDS: VITAMIN B-12 SL SCH (08:13)
[2018-09-08 11:39] LABS: CALCIUM 8.5 mg/dL (8.8-10.2); CREATININE 1.3 mg/dL (0.7-1.2)
--- NOTE | 2018-09-08 15:23 | PROGRESS NOTE ---
DATE: 09/08/2018 INTERVAL HISTORY: No change in O2 sats and chest x-ray essentially unchanged with minimal basilar opacity. oxygenation is actually somewhat improved. The patient's dyspnea essentially resolved. No new complaints. No acute events overnight. REVIEW OF SYSTEMS: Twelve-point review of systems negative as per interval history. LABS: BUN 29, creatinine 1.3, glucose, BMP otherwise unremarkable. VITALS: T-max 98.7, pulse 82, blood pressure 127/63, O2 sat 98% on room air. PHYSICAL EXAMINATION: General: No acute distress. Vitals: As above. HEENT: Normocephalic, atraumatic. Moist mucous membranes. No cervical adenopathy. Cardiovascular: Regular rate and rhythm. No murmurs noted. Pulmonary: Moderately decreased breath sounds throughout, but otherwise clear to auscultation bilaterally. Abdomen: Soft, nontender, nondistended. Bowel sounds positive. Extremities: Peripheral pulses intact. No clubbing, cyanosis or edema. Neurologic: Cranial nerves grossly intact. No focal deficits identified. Psychiatric: Normal mood and affect. Awake, alert and oriented x 3. Skin: No new rashes or lesions identified. ASSESSMENT AND PLAN: 1. Right lower lobe pneumonia. Patient significantly improved. Trying him off of oxygen. May be able to transition to p.o. antibiotics and discharge in the near future. Infectious Disease following and managing antibiotics. 2. Diabetes mellitus. Reasonable control on current regimen. Continue to monitor glucoses. 3. Anxiety disorder. Continues. Xanax p.r.n. 4. Thrombocytopenia. Platelets have been stable during this hospitalization. No signs of active bleeding. 5. JEZ on CKD 2 to 3. Creatinine trended up to 1.6, but now trending back down to 1.3. Baseline 1 to 1.2. Continue to monitor. Urine output reasonable. 6. COPD. No wheezing at this point. Continue nebs as needed. 7. DVT prophylaxis. [facility]CDs. [facility]
[2018-09-08] MEDS: CRESTOR PO SCH (20:37)
--- NOTE | 2018-09-08 20:49 | INFECTIOUS DISEASE PROGRESS NO ---
DATE: 09/08/2018 PRESENT ILLNESS: Mr. Russo has a right lower lobe pneumonia as well as an immunoglobulin deficiency. MEDICATIONS: Today is day 5 of treatment with Zyvox 600 mg IV every 12 hours and cefepime 2 g IV every 12 hours. He has also received one dose of IVIG on this admission. PHYSICAL EXAMINATION: Vital Signs: Temperature is 97.9, pulse rate 83, respiratory rate 18, blood pressure 140/49, O2 sats 97% on room air. General: This is a chronically ill-appearing, elderly gentleman. He is lying in the bed; currently in no acute distress. HEENT: Atraumatic, normocephalic. Oral mucous membranes are pink and moist. Conjunctivae are pink. He is very hard of hearing. Respiratory: Lung sounds are wheezing in the upper lobes, diminished in the bases. Cardiovascular: Heart rate is regular. Pedal and radial pulses are palpable bilaterally. Abdomen: Soft, round and nontender. Bowel sounds are active. Neurologic: He is awake, alert and oriented. He states he has been ambulating with a walker in the hallway today. LABORATORY AND X-RAY: Today there is no CBC. Creatinine is 1.3. GFR 53. Blood cultures have shown no growth since admission. No imaging reports today. ASSESSMENT AND PLAN: Mr. Russo is being treated for pneumonia and an immunoglobulin deficiency. At this point, we will continue his Zyvox and cefepime as ordered. The patient states he is feeling good today. We will recheck his x-ray in the department in the morning. We will also recheck his blood work. He did have an elevation in his creatinine, but that seems to be coming back down. He will need a recheck of his immunoglobulin levels in 6 to 8 weeks after discharge. These plans have been discussed with and recommended by Dr. Hidalgo. COMORBIDITIES: For Mr. Russo include that he is elderly with Parkinson's disease, diabetes mellitus, chronic kidney disease, COPD and peripheral artery disease. Dictated by ARNAUD Cash for Marco A Hidalgo MD This chart was documented by, ARNAUD Cash and accurately reflects the services performed, treatment plan and medical decisions as attested by the providers signature Marco A Hidalgo MD. cc: Marco A Hidalgo MD [facility]
[2018-09-09] MEDS: MAXIPIME 2 GM in NS 100 ML IV SCH ×2 (03:19→16:57)
[2018-09-09] MEDS: DUONEB (A & A) INH SCH ×4 (03:33→21:09)
[2018-09-09] MEDS: HUMALOG SUBQ SCH ×4 (06:24→21:40)
[2018-09-09] MEDS: PRILOSEC PO SCH (06:25)
[2018-09-09] MEDS: XANAX PO PRN ×3 (06:58→21:39)
[2018-09-09 07:49] LABS: BASO# 0.01 X1000 (0.0-0.2); BASO% 0.2 % (0.0-0.8); EOS# 0.24 X1000 (0.0-0.7); EOS% 4.1 % (0.0-10.0); HEMATOCRIT 31.3 % (42.0-52.0); HEMOGLOBIN 9.5 g/dL (14.0-18.0); LYMPH# 0.52 X1000 (1.2-3.4); MCH 29.4 PG (27-31); MCHC 30.4 g/dL (33-37); MCV 96.9 FL (81-99); MONO# 0.31 X1000 (0.11-0.59); MONO% 5.4 % (1.7-9.3); MPV 11.7 FL (7.4-10.4); NEUT# 4.71 X1000 (1.4-6.5); NEUT% 81.3 % (42.2-75.2); PLT 123 X1000 (130-400); RBC 3.23 XMIL (4.7-6.1); RDW 12.9 % (11.5-14.5); WBC 5.79 X1000 (4.8-10.8)
[2018-09-09 08:08] LABS: CALCIUM 8.9 mg/dL (8.8-10.2); CREATININE 1.4 mg/dL (0.7-1.2)
--- NOTE | 2018-09-09 09:15 | Diag Imaging Result Doc PS360 ---
EXAM: CHEST-2 VIEWS HISTORY: pneumonia TECHNIQUE: Chest two views COMPARISON: 09/07/2018 FINDINGS: There are small bilateral pleural effusions. There is atelectasis and/or infiltrates in the right base. Heart remains mildly prominent. Vascular distention is less pronounced. IMPRESSION: Mild interval improvement. Electronically signed by Daniel Soto 09/09/2018 9:13 AM
[2018-09-09] MEDS: ASPIRIN PO SCH (09:58)
[2018-09-09] MEDS: NORVASC PO SCH ×2 (09:58→21:40)
[2018-09-09] MEDS: APRESOLINE PO SCH ×3 (09:58→17:06)
[2018-09-09] MEDS: VITAMIN B-12 SL SCH (09:59)
[2018-09-09] MEDS: NEURONTIN PO SCH (09:59)
[2018-09-09] MEDS: ZYVOX 600 MG/D5W 600 MG/300 ML IVPB IV SCH ×2 (10:07→21:39)
--- NOTE | 2018-09-09 13:55 | PROGRESS NOTE ---
DATE: 09/09/2018 SUBJECTIVE: The patient is resting comfortable in bed. The patient would like to be discharged home. OBJECTIVE: Vital signs are as follows: Temperature is 98.1, pulse 84, respiratory rate is 18, blood pressure is 136/62, oxygen saturation is 96%. HEENT: Atraumatic, normocephalic. Cardiovascular: S1, S2. Respiratory System has evidence of good air entry bilaterally. Abdomen is soft, nontender. No masses felt. Extremities: The patient has some chronic inflammatory changes in both lower extremities. Central Nervous System: No obvious focal deficits noted. LABORATORY DATA: His labs are as follows: WBC is 5.79, hematocrit is 31.3, platelet count of 123,000. Sodium is 141, potassium is 4.0, chloride is 103, bicarb 28. BUN is 26, creatinine is 1.4. X-ray of the chest shows evidence of small bilateral pleural effusions as well as atelectasis and/or infiltrates in the right base. ASSESSMENT AND PLAN: 1. Right lower lobe pneumonia. Continue antibiotics. Infectious Disease following. 2. Diabetes mellitus. Continue blood sugar monitoring as well as sliding scale insulin. 3. Anxiety disorder. Continue alprazolam. 4. Thrombocytopenia. Continue to follow up on platelet counts. 5. Chronic kidney disease. Follow up on renal function. Avoid nephrotoxic agents. 6. Deconditioning. Physical therapy recommended. DISPOSITION: The patient can be discharged home with home health services when considered [*]by the Infectious Disease team. cc: Vishal Whiting MD
[2018-09-09] MEDS: CRESTOR PO SCH (21:39)
[2018-09-09] MEDS: NORCO-5 PO PRN (21:40)
--- NOTE | 2018-09-10 02:35 | INFECTIOUS DISEASE PROGRESS NO ---
DATE: 09/09/2018 PRESENT ILLNESS: The patient has a right lower lobe pneumonia and an immunoglobulin deficiency. MEDICATIONS: This is the 6th day of treatment with Zyvox and cefepime. The patient has also received a dose of IVIG in the hospital. PHYSICAL EXAMINATION: Vital Signs: Temperature is 98.1 degrees, pulse 82, respirations 18, blood pressure 134/60. General: This is a chronically ill-appearing elderly male. He is in no acute. Head, Eyes, Ears, Nose, and Throat: There is no drainage from the nose or ears. Neck: No stiffness. Lungs: Clear to auscultation. Cardiovascular: Heart rate is regular. Abdomen: Soft and not tender. Integument: The patient does not have any IV sites that are erythematous. LAB AND X-RAY: CBC for today shows a white count of 5790, hemoglobin 9.5, and platelet count 123,000. Creatinine is 1.4. GFR is 49. The chest x-ray shows right lower lobe atelectasis/infiltrate. ASSESSMENT AND PLAN: Patient has pneumonia and an immunoglobulin deficiency. We are sending the patient home today on Ceftin 500 mg p.o. every 12 hours and doxycycline 100 mg p.o. every 12 hours, both for 10 days. I have written for the patient to have an appointment in my office at 10 days, at which time he will be examined, and a repeat chest x-ray will be done. In approximately 6 weeks from now, I will repeat the patient's immunoglobulin level to see if it has fallen, or if it is staying up. COMORBIDITIES: The patient is elderly, and he has Parkinson's disease, diabetes mellitus, chronic kidney disease, COPD, and peripheral artery disease. cc: Marco A Hidalgo MD
[2018-09-10] MEDS: DUONEB (A & A) INH SCH ×2 (03:20→10:38)
[2018-09-10] MEDS: HUMALOG SUBQ SCH ×2 (06:03→12:00)
[2018-09-10] MEDS: MAXIPIME 2 GM in NS 100 ML IV SCH (06:17)
[2018-09-10] MEDS: PRILOSEC PO SCH (06:17)
[2018-09-10 07:03] LABS: BASO# 0.01 X1000 (0.0-0.2); BASO% 0.2 % (0.0-0.8); EOS# 0.29 X1000 (0.0-0.7); EOS% 6.3 % (0.0-10.0); HEMOGLOBIN 9.2 g/dL (14.0-18.0); LYMPH# 0.56 X1000 (1.2-3.4); LYMPH% 12.1 % (20.5-51.1); MCH 28.9 PG (27-31); MCHC 29.7 g/dL (33-37); MCV 97.5 FL (81-99); MONO# 0.28 X1000 (0.11-0.59); MONO% 6.1 % (1.7-9.3); MPV 11.7 FL (7.4-10.4); NEUT# 3.48 X1000 (1.4-6.5); NEUT% 75.3 % (42.2-75.2); PLT 111 X1000 (130-400); RBC 3.18 XMIL (4.7-6.1); RDW 13.1 % (11.5-14.5); WBC 4.62 X1000 (4.8-10.8)
--- NOTE | 2018-09-10 07:05 | Diag Imaging Result Doc PS360 ---
EXAM: CHEST-1 VIEW 09/10/2018 HISTORY: pneumonia TECHNIQUE: AP portable at 0607 COMMENT: There is some atelectasis over the right base and medially in the left lower lobe. This is not changed appreciably since 09/09/2018. There has been some improvement in the right base since 09/07/2018. IMPRESSION: Atelectasis and/or bronchopneumonia. Electronically signed by Jimmy Love 09/10/2018 7:03 AM
[2018-09-10 07:37] LABS: ALB/GLOB RATIO 1.7; ALBUMIN 3.5 g/dL (3.5-5.0); CALCIUM 9.1 mg/dL (8.8-10.2); CREATININE 1.3 mg/dL (0.7-1.2); POTASSIUM 4.1 mmol/L (3.5-5.1); TOTAL BILIRUBIN 0.3 mg/dL (0.20-1.00); TOTAL PROTEIN 5.6 g/dL (6.3-8.3)
[2018-09-10] MEDS: APRESOLINE PO SCH ×2 (08:35→15:03)
[2018-09-10] MEDS: VITAMIN B-12 SL SCH (08:35)
[2018-09-10] MEDS: NORVASC PO SCH (08:35)
[2018-09-10] MEDS: ZYVOX 600 MG/D5W 600 MG/300 ML IVPB IV SCH (08:35)
[2018-09-10] MEDS: ASPIRIN PO SCH (08:35)
[2018-09-10] MEDS: NEURONTIN PO SCH (08:35)
[2018-09-10 12:25] VITALS: BP 143/75
--- NOTE | 2018-09-11 05:31 | DISCHARGE SUMMARY ---
ADMISSION DATE: 09/02/2018 DISCHARGE DATE: 09/10/2018 CONSULTANTS: Infectious Disease, Dr. Hidalgo. IMAGIN. Initial chest x-ray with tiny right effusion but no other acute process. 2. CT abdomen and pelvis with thickened appendix without inflammation or abscess, fatty liver, constipation, small right pleural effusion with some basilar atelectasis. 3. Repeat chest x-ray with possible small infiltrate in the right lung base. 4. Final chest x-ray similar. LABORATORY: Initial BNP 1523. Troponin is negative. White count is within normal limits. Hemoglobin and hematocrit remained slightly low but stable. Discharge hemoglobin and hematocrit 9.2 and 31. Baseline creatinine 1.0, and trended up to 1.6 before trending back down to 1.3 prior to discharge. Platelets also remained mildly low of 111 on discharge, and 117 just after admission. DISCHARGE DIAGNOSES: 1. Likely right lower lobe pneumonia. 2. Diabetes mellitus. 3. Anxiety disorder. 4. Thrombocytopenia. 5. JEZ on chronic kidney disease 2 to 3. 6. Chronic obstructive pulmonary disease. HOSPITAL COURSE: The patient is a 78-year-old male with history of Parkinson's, diabetes, hypertension, hyperlipidemia, CKD chronic kidney disease, CKD 2. He presented with complaints of slightly increased dyspnea, chest pain and epigastric pain. He did have some lower extremity swelling but this was stable and chronic. The initial evaluation was somewhat unrevealing, however the repeat x-ray did show possible right lower lobe pneumonia. ID was consulted, and did further workup including immunoglobulin levels which were slightly low. The patient was given IVIG and antibiotics with cefepime and Zyvox initially. On discharge, the patient was transitioned to 2 p.o. Ceftin and doxycycline for an initial 10 days. The patient's cardiac workup was unremarkable with negative troponin's with mildly elevated BNP that was only slightly increased from previous. Echocardiogram showed normal EF. No major valve abnormalities, mildly elevated pulmonary pressure of 2732. No definite diastolic dysfunction. Blood pressure on admission was markedly elevated up to a systolic of 215. This improved significantly with the Norvasc and p.o. hydralazine, which the patient reportedly takes at home. He is continued on these at discharge, and the importance of compliance was emphasized to him. The patient was initially given a mild diuretic to attempt to assist with respiratory status and swelling, but developed some slight JEZ with a creatinine trending up to 1.6. At that point, diuretic was discontinued and his creatinine trended back down to 1.3 prior to discharge. He had stable mild anemia and thrombocytopenia with no bleeding issues. His diabetes was relatively stable. DISCHARGE VITAL SIGNS: Temperature 97.9 degrees, heart rate 84, respirations 22, blood pressure 143/75, and 02 sat 97% on room air. DISCHARGE EXAMINATION: General: No acute distress. Vital Signs: As above HEENT: Normocephalic and atraumatic. Moist mucous membranes. No cervical adenopathy. Cardiovascular: Regular rate and rhythm. No murmur. No gallop. Lungs: Mildly decreased breath sounds throughout, but otherwise clear to auscultation bilaterally. Abdomen: Soft. Nontender. Nondistended. Bowel sounds positive. Extremities: Peripheral pulses are intact. No clubbing or cyanosis. Mild edema stable. Neurologic: Cranial nerves are grossly intact. No focal deficits identified. Psychiatric: Normal mood and affect. Awake, alert, and oriented times 3. Skin: No rashes or lesions are identified. DISCHARGE DIET: Low salt. DISCHARGE MEDICATIONS: 1. Xanax 0.25 mg b.i.d. p.r.n. as at home. 2. Aspirin 81 mg p.o. daily. 3. Ferrous sulfate 325 mg p.o. daily. 4. Gabapentin 600 mg p.o. every day. 5. Pantoprazole 40 mg p.o. every day. 6. Rosuvastatin 20 mg p.o. bedtime. 7. Ceftin 500 mg q.12 hours x10 days. 8. Norvasc 5 mg p.o. b.i.d. 9. Doxycycline 100 mg p.o. b.i.d. x10 days. 10. Hydralazine 50 mg p.o. t.i.d. 11. Sitagliptin 50 mg p.o. daily. FOLLOW-UP PLAN: Patient is discharged home on oral antibiotics. Follow up with PCP and ID with Dr. Hidalgo. Dr. Hidalgo plans on rechecking patient's immunoglobulins, to see if his decreased immunoglobulins were transient or may be declared chronic IVIG therapy. TIME SPENT: Greater than 30 minutes spent arranging discharge and counseling the patient.
== END 2018-09-10 15:14 | disposition home health service (06) | DRG 194 ==
LOC: ED 14:44 → SUATTDRO 21:20 → 3N 21:20
PROVIDERS: ATTEND Internal Medicine
CPT/HCPCS: 71010; 71020; 71045; 71046; 74177; 80048; 80053; 80061; 81001; 82607; 82728; 82746; 82784; 82948; 83036; 83605; 83690; 83721; 83735; 83880; 84100; 84145; 84443; 84484; 85025; 85027; 87040; 93005; 93010; 93306; 94640; 94761; 94799; 96374; 96375; 97116; 97163; 97530; 99285; A9270; C8929; J0360; J0692; J1561; J1650; J1815; J1940; J2020; J2060; Q9957; Q9967; XXXXX